=== PATIENT | female | born 1970 | race Caucasian/White ===

== ENCOUNTER 2017-05-24 12:06 | Inpatient (IN) | payer OTHER ==
[2017-05-24 12:35] VITALS: BMI 21.9
--- NOTE | 2017-05-24 16:36 | HP ---
CIWA Score - CIWA Score Nausea/Vomitin Muscle Tremors: 3 Anxiety: 3 Agitation: 3 Paroxysmal Sweats: 3 Orientation: 0-Oriented Tacttile Disturbances: 2-Mild Itch/Numbness/Burn Auditory Disturbances: 2-Mild Harshness/Frighten Visual Disturbances: 2-Mild Sensitivity Headache: 2-Mild CIWA-Ar Total Score: 23 Admission ROS BHS - HPI Chief Complaint: i need help to stop using xanax,klonopin,cocaine Allergies/Adverse Reactions: Allergies Allergy/AdvReac Type Severity Reaction Status Date / Time No Known Allergies Allergy Verified 05/24/17 15:30 History of Present Illness: thi s47 years old female with heroin,xanax,and cocaine dependence,seeking detox, last treatment 15 years ago [facility] syncope nicotine dependence hepatitis c mmtp 90 mgs/day,last medicated today longest period of sobriety 5 years Exam Limitations: No Limitations - Ebola screening Have you traveled outside of the country in the last 21 days: No Have you had contact with anyone from an Ebola affected area: No Have you been sick,other than usual withdrawal symptoms: No Do you have a fever: No - Review of Systems Constitutional: Chills, Diaphoresis, Loss of Appetite, Malaise, Night Sweats, Changes in sleep, Weakness, Unintentional Wgt. Loss EENT: reports: Tearing, Nose Congestion Respiratory: reports: No Symptoms reported Cardiac: reports: No Symptoms Reported GI: reports: Diarrhea, Nausea, Vomiting, Abdominal cramping : reports: No Symptoms Reported Musculoskeletal: reports: Back Pain, Muscle Pain Integumentary: reports: Dryness Neuro: reports: Headache, Tremors Endocrine: reports: No Symptoms Reported Hematology: reports: No Symptoms Reported Psychiatric: reports: No Sypmtoms Reported, Judgement Intact, Mood/Affect Appropiate, Orientated x3, other (bipolar disorder) Patient History - Patient Medical History Hx Anemia: No Hx Asthma: No Hx Chronic Obstructive Pulmonary Disease (COPD): No Hx Cancer: No Hx Cardiac Disorders: No Hx Congestive Heart Failure: No Hx Hypertension: No Hx Hypercholesterolemia: No Hx Pacemaker: No HX Cerebrovascular Accident: No Hx Seizures: No Hx Diabetes: No Hx Gastrointestinal Disorders: Yes (acid reflux) Hx Liver Disease: No Hx Genitourinary Disorders: No Hx Sexually Transmitted Disorders: Yes (syphilis at age 18) Hx Renal Disease (ESRD): No Hx Thyroid Disease: No Hx Human Immunodeficiency Virus (HIV): Yes ([email or web address]) Hx Hepatitis C: Yes (not treated) Hx Depression: Yes Hx Suicide Attempt: No Hx Bipolar Disorder: No Hx Schizophrenia: No Other Medical History: no suicidal,no homicidal - Patient Surgical History Past Surgical History: No Hx Neurologic Surgery: No Hx Cataract Extraction: No Hx Cardiac Surgery: No Hx Lung Surgery: No Hx Breast Surgery: No Hx Breast Biopsy: No Hx Abdominal Surgery: No Hx Appendectomy: No Hx Cholecystectomy: No Hx Genitourinary Surgery: No Hx Section: No Hx Orthopedic Surgery: No Anesthesia Reaction: No - PPD History Previous Implant?: Yes Documented Results: Negative w/o proof Implanted On Prior [facility] Admission?: No - Reproductive History Patient is a Female of Child Bearing Age (11 -55 yrs old): Yes Last Menstrual Period: 05/15/17 Patient : No - Smoking Cessation Smoking history: Current every day smoker Have you smoked in the past 12 months: Yes Aproximately how many cigarettes per day: 20 Hx Chewing Tobacco Use: No Initiated information on smoking cessation: Yes 'Breaking Loose' booklet given: 05/24/17 - Substance & Tx. History Hx Alcohol Use: No Hx Substance Use: Yes Substance Use Type: Cocaine, Tranquilizers - Substances Abused Crack Route: Smoking Frequency: 3-6 times per week Amount used: $20 Age of first use: 16 Date of Last Use: 05/23/17 Heroin Route: Injection Frequency: 1-2 times per week Amount used: 3 bags Age of first use: 17 Date of Last Use: 05/23/17 Xanax Route: Oral Frequency: Daily Amount used: 4 mg. Age of first use: 45 Date of Last Use: 05/24/17 Family Disease History - Family Disease History Family History: Denies Admission Physical Exam BHS - Vital Signs Vital Signs: Vital Signs - 24 hr 05/24/17 12:31 Temperature 97.2 F L Pulse Rate 57 L Respiratory 20 Rate Blood Pressure 131/63 - Physical General Appearance: Yes: Moderate Distress, Tremorous, Irritable, Sweating, Anxious HEENTM: Yes: Normal ENT Inspection, Normocephalic, BRIAN, Pharynx Normal Respiratory: Yes: Lungs Clear, Normal Breath Sounds, No Respiratory Distress Neck: Yes: Within Normal Limits, Supple, Trachea in good position Breast: Yes: Breast Exam Deferred Cardiology: Yes: Within Normal Limits, Regular Rhythm, Regular Rate, S1, S2 Abdominal: Yes: Normal Bowel Sounds, Non Tender, Flat, Soft, Organomegaly Genitourinary: Yes: Within Normal Limits Back: Yes: Muscle Spasm Musculoskeletal: Yes: Back pain, Muscle Pain Extremities: Yes: Within Normal Limits, Normal Range of Motion, Tremors 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, Fully Oriented, Alert, Motor Strength 5/5 Integumentary: Yes: Within Normal Limits, Dry - Diagnostic (1) Uncomplicated sedative, hypnotic or anxiolytic withdrawal Current Visit: Yes Status: Acute (2) Cocaine dependence Current Visit: Yes Status: Acute (3) Syncope Current Visit: Yes Status: Acute (4) Methadone maintenance therapy patient Current Visit: Yes Status: Acute (5) Weight loss Current Visit: Yes Status: Acute (6) Bipolar disorder Current Visit: Yes Status: Acute (7) History of syphilis Current Visit: Yes Status: Acute (8) HIV (human immunodeficiency virus infection) Current Visit: Yes Status: Acute (9) Hepatitis C Current Visit: Yes Status: Acute Cleared for Admission [facility] - Detox or Rehab [facility] Level of Care: Medically Managed Detox Regimen/Protocol: Valium [facility] Breath Alcohol Content Breath Alcohol Content: 0 Urine Pregancy Test - Result Urine Test Results: Negative- NO Line Present Urine Drug Screen - Results Drug Screen Negative: No Urine Drug Screen Results: SHANELLE-Cocaine, OPI-Opiates, BZO-Benzodiazepines, MTD- Methadone
[2017-05-24] MEDS ORDERED: ACETAMINOPHEN 325 MG TABLET (FP) PO PRN (16:45)
[2017-05-24] MEDS ORDERED: guaiFENesin/D-METHORPHAN HB 10 ML UNIT-DOSE CUPS PO PRN (16:45)
[2017-05-24] MEDS ORDERED: diazePAM 5 MG TABLET PO PRN (16:45)
[2017-05-24] MEDS ORDERED: MENTHOL/PHENOL 1 EACH UD MM PRN (16:45)
[2017-05-24] MEDS ORDERED: MAG HYDROX/AL HYDROX/SIMETH 30 ML UNIT-DOSE CUP PO PRN (16:45)
[2017-05-24] MEDS ORDERED: diphenhydrAMINE HCL 50 MG CAPSULE PO PRN (16:45)
[2017-05-24] MEDS ORDERED: diazePAM 5 MG TABLET PO ONE (16:45)
[2017-05-24] MEDS ORDERED: hydrOXYzine PAMOATE 25 MG CAPSULE (FP) PO PRN (16:45)
[2017-05-24] MEDS ORDERED: MAGNESIUM CITRATE 300 ML BOTTLE PO PRN (16:45)
[2017-05-24] MEDS ORDERED: P-EPHED 60MG/TRIPROLIDI 2.5MG TABLET PO PRN (16:45)
[2017-05-24] MEDS ORDERED: IBUPROFEN 400 MG TABLET (FP) PO PRN (16:45)
[2017-05-24] MEDS ORDERED: MAGNESIUM HYDROX 2400MG/30ML ORAL SUSPENSION 30 ML CUP PO PRN (16:45)
[2017-05-24] MEDS ORDERED: LOPERAMIDE HCL 2 MG CAPSULE PO PRN (16:45)
[2017-05-24] MEDS: NICOTINE 21 MG/24 HOURS TOPICAL PATCH TD SCH (18:49)
[2017-05-24] MEDS: THIAMINE HCL 100 MG TABLET (FP) PO SCH (22:19)
[2017-05-24] MEDS: diazePAM 5 MG TABLET PO SCH (22:20)
[2017-05-24 23:06] LABS: URINE APPEARANCE SLCLOUDY; URINE BILIRUBIN NEGATIVE (NEGATIVE); URINE BLOOD NEGATIVE (NEGATIVE); URINE COLOR YELLOW; URINE GLUCOSE (UA) NEGATIVE (NEGATIVE); URINE KETONE NEGATIVE (NEGATIVE); URINE LEUK ESTERASE NEGATIVE (NEGATIVE); URINE NITRITE NEGATIVE (NEGATIVE); URINE PROTEIN NEGATIVE (NEGATIVE); URINE UROBILINOGEN NEGATIVE mg/dL (0.2-1.0)
[2017-05-25] MEDS: diazePAM 5 MG TABLET PO SCH ×3 (05:11→22:08)
[2017-05-25] MEDS ORDERED: METHADONE HCL 10 MG TABLET PO SCH (09:30)
[2017-05-25 09:59] LABS: MCH 26.8 pg (25.7-33.7); MCHC 33.3 g/dl (32.0-36.0); MEAN CELL VOLUME 80.3 fl (80-96); MEAN PLT VOLUME 11.1 fl (7.5-11.1); PLATELET COUNT 94 K/MM3 (134-434); WHITE BLOOD COUNT 3.2 K/mm3 (4.0-10.0)
[2017-05-25] MEDS ORDERED: METHADONE HCL 10 MG TABLET ONE (10:03)
[2017-05-25] MEDS ORDERED: METHADONE HCL 40 MG DISPERSABLE TABLET ONE (10:03)
[2017-05-25 10:05] LABS: ANION GAP 5 (8-16); CALCIUM 8.5 mg/dL (8.5-10.1); CO2 28 mmol/L (21-32); GLUCOSE,RANDOM 85 mg/dL (74-106)
[2017-05-25 10:08] LABS: ALK PHOS 78 U/L (45-117); BILIRUBIN,TOTAL 0.3 mg/dL (0.2-1.0); CREATININE 0.8 mg/dL (0.55-1.02); SGOT/AST 26 U/L (15-37); SGPT/ALT 32 U/L (12-78); TOT PROT 7.2 g/dl (6.4-8.2)
--- NOTE | 2017-05-25 10:34 | PN ---
S CIWA - CIWA Score Nausea/Vomitin Muscle Tremors: 3 Anxiety: 3 Agitation: 2 Paroxysmal Sweats: 1-Minimal Palms Moist Orientation: 0-Oriented Tacttile Disturbances: 1-Very Mild Itch/Numbness Auditory Disturbances: 1-Very Mild Visual Disturbances: 1-Very Mild Sensitivity Headache: 2-Mild CIWA-Ar Total Score: 17 BHS Progress Note (SOAP) Subjective: ALERT,IRRITABLE,ANXIOUS,INTERRUPTED SLEEP,PAIN IN THE BODY AND BACK Objective: 05/25/17 10:31 Vital Signs Temperature 96.7 F L 05/25/17 06:19 Pulse Rate 66 05/25/17 06:19 Respiratory Rate 18 05/25/17 06:19 Blood Pressure 104/66 05/25/17 06:19 O2 Sat by Pulse Oximetry (%) EKG SINUS BRADYCARDIA 55/MIN NO CHEST PAIN,NO SOB,NO DIZZINESS 05/25/17 10:33 Laboratory Last Values Urine Color Yellow 05/24/17 22:50 Urine Appearance Slcloudy 05/24/17 22:50 Urine pH 6.0 (5.0-8.0) 05/24/17 22:50 Urine Protein Negative (NEGATIVE) 05/24/17 22:50 Urine Glucose (UA) Negative (NEGATIVE) 05/24/17 22:50 Urine Ketones Negative (NEGATIVE) 05/24/17 22:50 Urine Blood Negative (NEGATIVE) 05/24/17 22:50 Urine Nitrite Negative (NEGATIVE) 05/24/17 22:50 Urine Bilirubin Negative (NEGATIVE) 05/24/17 22:50 Urine Urobilinogen Negative mg/dL (0.2-1.0) 05/24/17 22:50 Ur Leukocyte Esterase Negative (NEGATIVE) 05/24/17 22:50 LABS PENDING Assessment: 05/25/17 10:33 WITHDRAWAL SYMPTOM Plan: CONTINUE DETOX
[2017-05-25] MEDS: NICOTINE 21 MG/24 HOURS TOPICAL PATCH TD SCH (12:05)
[2017-05-25] MEDS: PRENATAL VITAMINS W/ FOLIC ACID TABLET (FP) PO SCH (12:05)
[2017-05-25] MEDS: METHADONE 80 MG, METHADONE 10 MG PO SCH (12:06)
--- NOTE | 2017-05-25 14:33 | CONSULT ---
[facility] Psychiatric Consult - Data Date of interview: 05/25/17 Admission source: [facility] Identifying data: Patient refused psychiatric evaluation.Nursing staff is made aware.
[2017-05-25] MEDS: THIAMINE HCL 100 MG TABLET (FP) PO SCH (22:09)
[2017-05-26] MEDS ORDERED: METHADONE HCL 10 MG TABLET ONE (04:50)
[2017-05-26] MEDS ORDERED: METHADONE HCL 40 MG DISPERSABLE TABLET ONE (04:50)
[2017-05-26] MEDS: METHADONE 80 MG, METHADONE 10 MG PO SCH (06:08)
--- NOTE | 2017-05-26 08:16 | EKG ---
Test Reason : Blood Pressure : / mmHG Vent. Rate : 055 BPM Atrial Rate : 055 BPM P-R Int : 152 ms QRS Dur : 094 ms QT Int : 426 ms P-R-T Axes : 039 073 047 degrees QTc Int : 407 ms SINUS BRADYCARDIA NONSPECIFIC T WAVE ABNORMALITY ABNORMAL ECG NO PREVIOUS ECGS AVAILABLE Confirmed by BRAEDEN NEAL, JADYN ([id number]) on 05/26/2017 8:15:28 AM Referred By: Vasiliy Samaniego Confirmed By:JADYN DERAS MD
[2017-05-26] MEDS: diazePAM 5 MG TABLET PO SCH ×2 (10:13→22:07)
[2017-05-26] MEDS: NICOTINE 21 MG/24 HOURS TOPICAL PATCH TD SCH (10:13)
[2017-05-26] MEDS: PRENATAL VITAMINS W/ FOLIC ACID TABLET (FP) PO SCH (10:13)
--- NOTE | 2017-05-26 10:30 | PN ---
S CIWA - CIWA Score Nausea/Vomitin Muscle Tremors: 3 Anxiety: 3 Agitation: 2 Paroxysmal Sweats: No Perspiration Orientation: 0-Oriented Tacttile Disturbances: 1-Very Mild Itch/Numbness Auditory Disturbances: 1-Very Mild Visual Disturbances: 1-Very Mild Sensitivity Headache: 2-Mild CIWA-Ar Total Score: 16 S Progress Note (SOAP) Subjective: ALERT,IRRITABLE,ANXIOUS,INTERRUPTED SLEEP,TREMOR Objective: 05/26/17 10:29 Vital Signs Temperature 98.1 F 05/26/17 10:00 Pulse Rate 67 05/26/17 10:00 Respiratory Rate 20 05/26/17 10:00 Blood Pressure 124/67 05/26/17 10:00 O2 Sat by Pulse Oximetry (%) Laboratory Last Values WBC 3.2 K/mm3 (4.0-10.0) L 05/25/17 07:00 RBC 4.32 M/mm3 (3.60-5.2) 05/25/17 07:00 Hgb 11.5 GM/dL (10.7-15.3) 05/25/17 07:00 Hct 34.7 % (32.4-45.2) 05/25/17 07:00 MCV 80.3 fl (80-96) 05/25/17 07:00 MCH 26.8 pg (25.7-33.7) 05/25/17 07:00 MCHC 33.3 g/dl (32.0-36.0) 05/25/17 07:00 RDW 14.0 % (11.6-15.6) 05/25/17 07:00 Plt Count 94 K/MM3 (134-434) L 05/25/17 07:00 MPV 11.1 fl (7.5-11.1) 05/25/17 07:00 Sodium 141 mmol/L (136-145) 05/25/17 07:00 Potassium 4.2 mmol/L (3.5-5.1) 05/25/17 07:00 Chloride 108 mmol/L (98-107) H 05/25/17 07:00 Carbon Dioxide 28 mmol/L (21-32) 05/25/17 07:00 Anion Gap 5 (8-16) L 05/25/17 07:00 BUN 10 mg/dL (7-18) 05/25/17 07:00 Creatinine 0.8 mg/dL (0.55-1.02) 05/25/17 07:00 Creat Clearance w eGFR > 60 (>60) 05/25/17 07:00 Random Glucose 85 mg/dL (74-106) 05/25/17 07:00 Calcium 8.5 mg/dL (8.5-10.1) 05/25/17 07:00 Total Bilirubin 0.3 mg/dL (0.2-1.0) 05/25/17 07:00 AST 26 U/L (15-37) 05/25/17 07:00 ALT 32 U/L (12-78) 05/25/17 07:00 Alkaline Phosphatase 78 U/L (45-117) 05/25/17 07:00 Total Protein 7.2 g/dl (6.4-8.2) 05/25/17 07:00 Albumin 3.0 g/dl (3.4-5.0) L 05/25/17 07:00 Urine Color Yellow 05/24/17 22:50 Urine Appearance Slcloudy 05/24/17 22:50 Urine pH 6.0 (5.0-8.0) 05/24/17 22:50 Ur Specific [place] 1.010 (1.005-1.025) 05/24/17 22:50 Urine Protein Negative (NEGATIVE) 05/24/17 22:50 Urine Glucose (UA) Negative (NEGATIVE) 05/24/17 22:50 Urine Ketones Negative (NEGATIVE) 05/24/17 22:50 Urine Blood Negative (NEGATIVE) 05/24/17 22:50 Urine Nitrite Negative (NEGATIVE) 05/24/17 22:50 Urine Bilirubin Negative (NEGATIVE) 05/24/17 22:50 Urine Urobilinogen Negative mg/dL (0.2-1.0) 05/24/17 22:50 Ur Leukocyte Esterase Negative (NEGATIVE) 05/24/17 22:50 RPR Titer Nonreactive (NONREACTIVE) 05/25/17 07:00 Assessment: 05/26/17 10:29 WITHDRAWAL SYMPTOM Plan: CONTINUE DETOX
[2017-05-26] MEDS: PANTOPRAZOLE 40 MG TABLET (FP) PO SCH (15:23)
[2017-05-26] MEDS: THIAMINE HCL 100 MG TABLET (FP) PO SCH (22:07)
[2017-05-27] MEDS ORDERED: METHADONE HCL 10 MG TABLET ONE (04:59)
[2017-05-27] MEDS ORDERED: METHADONE HCL 40 MG DISPERSABLE TABLET ONE (04:59)
[2017-05-27] MEDS: METHADONE 80 MG, METHADONE 10 MG PO SCH (05:58)
--- NOTE | 2017-05-27 10:02 | PN ---
S Progress Note (SOAP) Subjective: ALERT,IRRITABLE,ANXIOUS,INTERRUPTED SLEEP, Objective: 05/27/17 10:02 Vital Signs Temperature 96.3 F L 05/27/17 06:22 Pulse Rate 66 05/27/17 06:22 Respiratory Rate 16 05/27/17 06:22 Blood Pressure 97/60 05/27/17 06:22 O2 Sat by Pulse Oximetry (%) Assessment: 05/27/17 10:02 WITHDRAWAL SYMPTOM Plan: CONTINUE DETOX
[2017-05-27] MEDS: PRENATAL VITAMINS W/ FOLIC ACID TABLET (FP) PO SCH (10:07)
[2017-05-27] MEDS: NICOTINE 21 MG/24 HOURS TOPICAL PATCH TD SCH (10:07)
[2017-05-27] MEDS: diazePAM 5 MG TABLET PO SCH ×2 (10:07→22:05)
[2017-05-27] MEDS: PANTOPRAZOLE 40 MG TABLET (FP) PO SCH (10:07)
[2017-05-27] MEDS: THIAMINE HCL 100 MG TABLET (FP) PO SCH (22:05)
[2017-05-28] MEDS ORDERED: METHADONE HCL 40 MG DISPERSABLE TABLET ONE (04:05)
[2017-05-28] MEDS ORDERED: METHADONE HCL 10 MG TABLET ONE (04:05)
[2017-05-28] MEDS: METHADONE 80 MG, METHADONE 10 MG PO SCH (05:41)
--- NOTE | 2017-05-28 08:08 | DS ---
[facility] Detox Discharge Summary Admission Date: 05/24/17 Discharge Date: 05/28/17 - History Present History: Cocaine Dependence, Sedative Dependence, MMTP Additional Comments: follow up with after care program as arrangement Pertinent Past History: syncope hiv weight loss hepatitis c bipolar disorder history of syphilis - Physical Exam Results Vital Signs: Vital Signs Temperature 97.7 F 05/28/17 06:20 Pulse Rate 57 L 05/28/17 06:20 Respiratory Rate 16 05/28/17 06:20 Blood Pressure 101/54 05/28/17 06:20 O2 Sat by Pulse Oximetry (%) Pertinent Admission Physical Exam Findings: withdrawal symptom - Treatment Hospital Course: Detox Protocol Followed, Detoxed Safely, Responded well, Discharged Condition Good Patient has Accepted a Rehab Referral to: declined - Medication Discharge Medications: Ambulatory Orders Omeprazole Magnesium [Prilosec] 10 mg PO DAILY 05/26/17 - Diagnosis (1) Uncomplicated sedative, hypnotic or anxiolytic withdrawal Current Visit: Yes Status: Acute (2) Cocaine dependence Current Visit: Yes Status: Acute (3) Syncope Current Visit: Yes Status: Acute (4) Methadone maintenance therapy patient Current Visit: Yes Status: Acute (5) Weight loss Current Visit: Yes Status: Acute (6) Bipolar disorder Current Visit: Yes Status: Acute (7) History of syphilis Current Visit: Yes Status: Acute (8) HIV (human immunodeficiency virus infection) Current Visit: Yes Status: Acute (9) Hepatitis C Current Visit: Yes Status: Acute - AMA Did Patient Leave Against Medical Advice: No
[2017-05-28] MEDS: NICOTINE 21 MG/24 HOURS TOPICAL PATCH TD SCH (09:12)
[2017-05-28] MEDS: PRENATAL VITAMINS W/ FOLIC ACID TABLET (FP) PO SCH (09:14)
[2017-05-28 09:47] VITALS: BP 110/62; PULSE 74; TEMP 97.9
[2017-05-28] MEDS ORDERED: diazePAM 5 MG TABLET PO SCH (10:00)
[2017-05-28] MEDS ORDERED: RANITIDINE HCL 150 MG TABLET (FP) PO SCH (10:00)
== END 2017-05-28 09:44 | disposition home or self-care (01) | DRG 773 ==
LOC: YASAS 12:06 → Y6N 18:04
PROVIDERS: ADMIT Internal Medicine; ATTEND Internal Medicine
PROC: HZ2ZZZZ Detoxification Services for Substance Abuse Treatment (ICD-10-PCS; principal; 2017-05-24)
DX: F11.20 Opioid dependence, uncomplicated (principal); F14.20 Cocaine dependence, uncomplicated; F17.210 Nicotine dependence, cigarettes, uncomplicated; F31.9 Bipolar disorder, unspecified; Z21 Asymptomatic human immunodeficiency virus [HIV] infection status; R00.1 Bradycardia, unspecified; B18.2 Chronic viral hepatitis C; K21.9 Gastro-esophageal reflux disease without esophagitis; Z86.79 Personal history of other diseases of the circulatory system; Z87.898 Personal history of other specified conditions; Z87.42 Personal history of other diseases of the female genital tract
CPT/HCPCS: 36415; 80053; 81003; 85027; 86593; 93005; 93010

== ENCOUNTER 2017-11-06 18:31 | Inpatient (IN) | payer OTHER ==
[2017-11-06 21:02] VITALS: BMI 22.6
--- NOTE | 2017-11-06 22:00 | HP ---
COWS - Scale Resting Pulse: 0= OR 80 or Below Sweatin=Flushed/Facial Moisture Restless Observation: 1= Difficult to Sit Still Pupil Size: 0= Normal to Room Light Bone or Joint Aches: 4=Acute Joint/Muscle Pain Runny Nose/ Eye Tearin= Runny Nose/Eyes GI Upset > 30mins: 3= Vomiting/Diarrhea (vomiting x 2, diarrhea x 3) Tremor Observation: 2= Slight Tremor Visible Yawning Observation: 1= 1-2x During Session Anxiety or Irritability: 2=Irritable/Anxious Goose Flesh Skin: 3=Piloerection COWS Score: 20 Admission ROS S - [facility] Chief Complaint: Opioid withdrawal symptoms Allergies/Adverse Reactions: Allergies Allergy/AdvReac Type Severity Reaction Status Date / Time No Known Allergies Allergy Verified 05/24/17 15:30 History of Present Illness: 47 years old female with a long history of opioid dependence is seeking admission to detox. Patient has been in previous detox, last in May 2017 at [facility]. Reports 5 years of sobriety. Patient has medical history of HIV, Hep C, GERD, Syphilis, nicotine dependence and depression. She is on 130mg capsule at [facility] in [place]. Dose is to be verified by the nurse. She denies suicidal ideation at this time. Exam Limitations: No Limitations - Ebola screening Have you traveled outside of the country in the last 21 days: No Have you had contact with anyone from an Ebola affected area: No Have you been sick,other than usual withdrawal symptoms: No Do you have a fever: No - Review of Systems Constitutional: Chills, Loss of Appetite, Malaise, Night Sweats EENT: reports: No Symptoms Reported, Other (uses prescription glasses) Respiratory: reports: No Symptoms reported Cardiac: reports: No Symptoms Reported GI: reports: Diarrhea (x3), Nausea, Poor Appetite, Poor Fluid Intake, Abdominal cramping : reports: No Symptoms Reported Musculoskeletal: reports: Back Pain, Muscle Pain, Muscle Weakness Integumentary: reports: Flushing Neuro: reports: Tingling, Tremors, Weakness Hematology: reports: No Symptoms Reported Psychiatric: reports: Orientated x3, Agitated, Anxious Other Systems: Reviewed and Negative Patient History - Patient Medical History Hx Anemia: No Hx Asthma: No Hx Chronic Obstructive Pulmonary Disease (COPD): No Hx Cancer: No Hx Cardiac Disorders: No Hx Congestive Heart Failure: No Hx Hypertension: No Hx Hypercholesterolemia: No HX Cerebrovascular Accident: No Hx Seizures: No Hx Diabetes: No Hx Gastrointestinal Disorders: Yes (acid reflux) Hx Liver Disease: No Hx Genitourinary Disorders: No Hx Sexually Transmitted Disorders: Yes (syphilis at age 18) Hx Renal Disease (ESRD): No Hx Thyroid Disease: No Hx Human Immunodeficiency Virus (HIV): Yes (2012) Hx Hepatitis C: Yes (not treated) Hx Depression: Yes Hx Suicide Attempt: No Hx Bipolar Disorder: No Hx Schizophrenia: No - Patient Surgical History Past Surgical History: No Hx Neurologic Surgery: No Hx Cataract Extraction: No Hx Cardiac Surgery: No Hx Lung Surgery: No Hx Breast Surgery: No Hx Breast Biopsy: No Hx Abdominal Surgery: No Hx Appendectomy: No Hx Cholecystectomy: No Hx Genitourinary Surgery: No Hx Section: No Hx Orthopedic Surgery: No Anesthesia Reaction: No - PPD History Previous Implant?: Yes Documented Results: Negative w/proof Date: 05/26/17 PPD to be Administered?: No - Reproductive History Patient is a Female of Child Bearing Age (11 -55 yrs old): Yes Last Menstrual Period: 05/15/17 Patient : No - Smoking Cessation Smoking history: Current every day smoker Have you smoked in the past 12 months: Yes Aproximately how many cigarettes per day: 20 Hx Chewing Tobacco Use: No Initiated information on smoking cessation: Yes 'Breaking Loose' booklet given: 11/13/17 - Substance & Tx. History Hx Alcohol Use: No Hx Substance Use: Yes Substance Use Type: Cocaine, Heroin Hx Substance Use Treatment: Yes ([facility] May 2017) - Substances Abused Alprazolam (Xanax) Route: Oral Frequency: Daily Amount used: 6 mg Age of first use: 47 Date of Last Use: 11/06/17 Cocaine Route: Smoking Frequency: Daily Amount used: 3 sticks Age of first use: 16 Date of Last Use: 11/05/17 Heroin Route: Injection Frequency: Daily Amount used: 5 bags Age of first use: 18 Date of Last Use: 11/06/17 Family Disease History - Family Disease History Family History: Denies Admission Physical Exam BHS - Vital Signs Vital Signs: Vital Signs - 24 hr 11/06/17 20:59 Temperature 95.9 F L Pulse Rate 56 L Respiratory 19 Rate Blood Pressure 86/50 - Physical General Appearance: Yes: Moderate Distress HEENTM: Yes: EOMI, Normal Voice, BRIAN Respiratory: Yes: Lungs Clear, Normal Breath Sounds, No Respiratory Distress Neck: Yes: Supple Breast: Yes: Breast Exam Deferred Cardiology: Yes: Regular Rhythm, Regular Rate, S1, S2, Bradycardia Abdominal: Yes: Normal Bowel Sounds, Soft Genitourinary: Yes: Within Normal Limits Musculoskeletal: Yes: Back pain, Muscle Pain, Muscle weakness Extremities: Yes: Tremors Neurological: Yes: Alert, Normal Response Integumentary: Yes: Dry Lymphatic: Yes: Within Normal Limits - Diagnostic (1) Opioid dependence with withdrawal Current Visit: Yes Status: Chronic (2) Cocaine dependence Current Visit: Yes Status: Chronic (3) HIV (human immunodeficiency virus infection) Current Visit: Yes Status: Chronic (4) Hepatitis C Current Visit: Yes Status: Chronic (5) History of syphilis Current Visit: Yes Status: Chronic (6) Methadone maintenance therapy patient Current Visit: Yes Status: Chronic (7) Uncomplicated sedative, hypnotic or anxiolytic withdrawal Current Visit: Yes Status: Chronic Cleared for Admission [facility] - Detox or Rehab [facility] Level of Care: Medically Managed Detox Regimen/Protocol: Valium [facility] Breath Alcohol Content Breath Alcohol Content: 0 Urine Pregancy Test - Result Urine Test Results: Negative- NO Line Present Urine Drug Screen - Results Drug Screen Negative: No Urine Drug Screen Results: SHANELLE-Cocaine, OPI-Opiates, BZO-Benzodiazepines, MTD- Methadone
[2017-11-06] MEDS ORDERED: MAGNESIUM CITRATE 300 ML BOTTLE PO PRN (22:09)
[2017-11-06] MEDS ORDERED: IBUPROFEN 400 MG TABLET (FP) PO PRN (22:09)
[2017-11-06] MEDS ORDERED: MENTHOL/PHENOL 1 EACH UD MM PRN (22:09)
[2017-11-06] MEDS ORDERED: NICOTINE POLACRILEX 2 MG GUM BC PRN (22:09)
[2017-11-06] MEDS ORDERED: P-EPHED 60MG/TRIPROLIDI 2.5MG TABLET PO PRN (22:09)
[2017-11-06] MEDS ORDERED: MAGNESIUM HYDROX 2400MG/30ML ORAL SUSPENSION 30 ML CUP PO PRN (22:09)
[2017-11-06] MEDS ORDERED: MAG HYDROX/AL HYDROX/SIMETH 30 ML UNIT-DOSE CUP PO PRN (22:09)
[2017-11-06] MEDS ORDERED: guaiFENesin/D-METHORPHAN HB 10 ML UNIT-DOSE CUPS PO PRN (22:09)
[2017-11-06] MEDS ORDERED: ACETAMINOPHEN 325 MG TABLET (FP) PO PRN (22:09)
[2017-11-06] MEDS ORDERED: diazePAM 5 MG TABLET PO ONE (22:09)
[2017-11-06 23:58] LABS: URINE APPEARANCE CLOUDY; URINE BILIRUBIN NEGATIVE (NEGATIVE); URINE BLOOD NEGATIVE (NEGATIVE); URINE COLOR YELLOW; URINE GLUCOSE (UA) NEGATIVE (NEGATIVE); URINE KETONE NEGATIVE (NEGATIVE); URINE NITRITE NEGATIVE (NEGATIVE); URINE PROTEIN NEGATIVE (NEGATIVE); URINE UROBILINOGEN NEGATIVE mg/dL (0.2-1.0)
[2017-11-07 00:13] LABS: URINE LEUK ESTERASE 2+ (NEGATIVE)
[2017-11-07 00:21] LABS: EPI CELLS MANY /HPF (FEW); URINE BACTERIA RARE /hpf (NONE SEEN); URINE MUCUS RARE
[2017-11-07 00:22] LABS: AMORP URATES FEW /hpf (NONE SEEN)
[2017-11-07] MEDS: diazePAM 5 MG TABLET PO PRN (00:46)
[2017-11-07] MEDS: diazePAM 5 MG TABLET PO SCH ×3 (05:29→22:20)
[2017-11-07] MEDS ORDERED: METHADONE HCL 10 MG TABLET PO ONE (10:05)
[2017-11-07] MEDS: PRENATAL VITAMINS W/ FOLIC ACID TABLET (FP) PO SCH (10:17)
[2017-11-07] MEDS: NICOTINE 14 MG/24 HOURS TOPICAL PATCH TD SCH (10:17)
[2017-11-07 10:36] LABS: ALBUMIN 3.1 g/dl (3.4-5.0); ANION GAP 6 (8-16); BLOOD UREA NITROGEN 11 mg/dL (7-18); CALCIUM 8.7 mg/dL (8.5-10.1); CHLORIDE 106 mmol/L (98-107); CO2 31 mmol/L (21-32); GLUCOSE,RANDOM 105 mg/dL (74-106); POTASSIUM 3.8 mmol/L (3.5-5.1); SODIUM 143 mmol/L (136-145)
[2017-11-07 10:37] LABS: HEMATOCRIT 36.2 % (32.4-45.2); HEMOGLOBIN 11.9 GM/dL (10.7-15.3); MCH 26.8 pg (25.7-33.7); MCHC 32.8 g/dl (32.0-36.0); MEAN CELL VOLUME 81.7 fl (80-96); PLATELET COUNT 118 K/MM3 (134-434); RBC 4.43 M/mm3 (3.60-5.2); RDW 13.5 % (11.6-15.6); WHITE BLOOD COUNT 2.8 K/mm3 (4.0-10.0)
[2017-11-07 10:41] LABS: ALK PHOS 80 U/L (45-117); BILIRUBIN,TOTAL 0.4 mg/dL (0.2-1.0); CREATININE 0.8 mg/dL (0.55-1.02); SGOT/AST 20 U/L (15-37); SGPT/ALT 24 U/L (12-78); TOT PROT 7.4 g/dl (6.4-8.2)
[2017-11-07] MEDS ORDERED: METHADONE 80 MG, METHADONE 30 MG PO ONE (10:51)
[2017-11-07] MEDS ORDERED: METHADONE HCL 40 MG DISPERSABLE TABLET ONE (11:31)
[2017-11-07] MEDS ORDERED: METHADONE HCL 10 MG TABLET ONE (11:31)
--- NOTE | 2017-11-07 13:39 | EKG ---
Test Reason : Blood Pressure : / mmHG Vent. Rate : 060 BPM Atrial Rate : 060 BPM P-R Int : 154 ms QRS Dur : 102 ms QT Int : 456 ms P-R-T Axes : 038 071 062 degrees QTc Int : 456 ms NORMAL SINUS RHYTHM T WAVE ABNORMALITY, CONSIDER ANTERIOR ISCHEMIA ABNORMAL ECG WHEN COMPARED WITH ECG OF 24-MAY-2017 18:20, T WAVE INVERSION NOW EVIDENT IN ANTERIOR LEADS Confirmed by BRAEDEN NEAL, JADYN ([id number]) on 11/07/2017 1:39:32 PM Referred By: Confirmed By:JADYN DERAS MD
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
[2017-11-07] MEDS: LOPERAMIDE HCL 2 MG CAPSULE PO PRN (20:15)
[2017-11-07] MEDS: THIAMINE HCL 100 MG TABLET (FP) PO SCH (22:21)
[2017-11-08] MEDS ORDERED: METHADONE HCL 40 MG DISPERSABLE TABLET ONE (04:39)
[2017-11-08] MEDS ORDERED: METHADONE HCL 10 MG TABLET ONE (04:40)
[2017-11-08] MEDS: METHADONE 80 MG, METHADONE 30 MG PO SCH (05:23)
[2017-11-08] MEDS ORDERED: METHADONE HCL 40 MG DISPERSABLE TABLET PO SCH (06:00)
[2017-11-08] MEDS: PRENATAL VITAMINS W/ FOLIC ACID TABLET (FP) PO SCH (10:17)
[2017-11-08] MEDS: diazePAM 5 MG TABLET PO SCH ×2 (10:17→22:19)
[2017-11-08] MEDS: NICOTINE 14 MG/24 HOURS TOPICAL PATCH TD SCH (10:17)
[2017-11-08] MEDS: LOPERAMIDE HCL 2 MG CAPSULE PO PRN (10:19)
--- NOTE | 2017-11-08 10:49 | PN ---
BHS COWS - Scale Resting Pulse: 0= ID 80 or Below Sweatin=Flushed/Facial Moisture Restless Observation: 1= Difficult to Sit Still Pupil Size: 0= Normal to Room Light Bone or Joint Aches: 2= Severe Diffuse Aches Runny Nose/ Eye Tearin= Runny Nose/Eyes GI Upset > 30mins: 2= Nausea/Diarrhea Tremor Observation of Outstretched Hands: 2= Slight Tremor Visible Yawning Observation: 2= >3x During Session Anxiety or Irritability: 1=Feels Anxious/Irritable Goose Flesh Skin: 3=Piloerection COWS Score: 17 BHS Progress Note (SOAP) Subjective: sweats agitation body ache shakes interrupted sleep Objective: 11/08/17 10:54 Vital Signs Temperature 98.1 F 11/08/17 09:17 Pulse Rate 64 11/08/17 09:17 Respiratory Rate 18 11/08/17 09:17 Blood Pressure 127/65 11/08/17 09:17 O2 Sat by Pulse Oximetry (%) Laboratory Tests 11/06/17 11/07/17 11/07/17 22:40 07:00 07:00 WBC 2.8 L RBC 4.43 Hgb 11.9 Hct 36.2 MCV 81.7 MCH 26.8 MCHC 32.8 RDW 13.5 Plt Count 118 L D MPV 12.0 H Sodium 143 Potassium 3.8 Chloride 106 Carbon Dioxide 31 Anion Gap 6 L BUN 11 Creatinine 0.8 Creat Clearance w eGFR > 60 Random Glucose 105 Calcium 8.7 Total Bilirubin 0.4 D AST 20 D ALT 24 D Alkaline Phosphatase 80 Total Protein 7.4 Albumin 3.1 L Urine Color Yellow Urine Appearance Cloudy Urine pH 5.0 Ur Specific [place] 1.013 Urine Protein Negative Urine Glucose (UA) Negative Urine Ketones Negative Urine Blood Negative Urine Nitrite Negative Urine Bilirubin Negative Urine Urobilinogen Negative Ur Leukocyte Esterase 2+ H Urine WBC (Auto) 14 Urine RBC (Auto) 5 Ur Epithelial Cells Many Amorphous Urates Few Urine Bacteria Rare Urine Mucus Rare RPR Titer 11/07/17 07:00 WBC RBC Hgb Hct MCV MCH MCHC RDW Plt Count MPV Sodium Potassium Chloride Carbon Dioxide Anion Gap BUN Creatinine Creat Clearance w eGFR Random Glucose Calcium Total Bilirubin AST ALT Alkaline Phosphatase Total Protein Albumin Urine Color Urine Appearance Urine pH Ur Specific [place] Urine Protein Urine Glucose (UA) Urine Ketones Urine Blood Urine Nitrite Urine Bilirubin Urine Urobilinogen Ur Leukocyte Esterase Urine WBC (Auto) Urine RBC (Auto) Ur Epithelial Cells Amorphous Urates Urine Bacteria Urine Mucus RPR Titer Nonreactive aaox3 ambulating no acute distress Assessment: 11/08/17 10:55 withdrawal sx Plan: continue detox increase fluids
[2017-11-08] MEDS: diazePAM 5 MG TABLET PO PRN (17:44)
[2017-11-08] MEDS: THIAMINE HCL 100 MG TABLET (FP) PO SCH (22:19)
[2017-11-09] MEDS: diazePAM 5 MG TABLET PO PRN ×4 (01:58→19:09)
[2017-11-09] MEDS ORDERED: METHADONE HCL 40 MG DISPERSABLE TABLET ONE (04:20)
[2017-11-09] MEDS ORDERED: METHADONE HCL 10 MG TABLET ONE (04:21)
[2017-11-09] MEDS: METHADONE 80 MG, METHADONE 30 MG PO SCH (05:21)
[2017-11-09] MEDS: LOPERAMIDE HCL 2 MG CAPSULE PO PRN (09:49)
[2017-11-09] MEDS: PRENATAL VITAMINS W/ FOLIC ACID TABLET (FP) PO SCH (10:11)
[2017-11-09] MEDS: diazePAM 5 MG TABLET PO SCH ×2 (10:11→22:21)
[2017-11-09] MEDS: PANTOPRAZOLE 40 MG TABLET (FP) PO SCH (10:11)
[2017-11-09] MEDS: NICOTINE 14 MG/24 HOURS TOPICAL PATCH TD SCH (10:12)
--- NOTE | 2017-11-09 10:41 | PN ---
[facility] CIWA - CIWA Score Nausea/Vomitin Muscle Tremors: 3 Anxiety: 3 Agitation: 2 Paroxysmal Sweats: 3 Orientation: 0-Oriented Tacttile Disturbances: 2-Mild Itch/Numbness/Burn Auditory Disturbances: 0-None Visual Disturbances: 0-None Headache: 0-None Present CIWA-Ar Total Score: 16 S Progress Note (SOAP) Subjective: interrupted sleep, sweats , shakes, nausea , needs meds for gerd Objective: 11/09/17 10:39 Vital Signs Temperature 96.5 F L 11/09/17 06:35 Pulse Rate 58 L 11/09/17 06:35 Respiratory Rate 16 11/09/17 06:35 Blood Pressure 98/65 11/09/17 06:35 O2 Sat by Pulse Oximetry (%) Laboratory Tests 11/06/17 11/07/17 11/07/17 22:40 07:00 07:00 WBC 2.8 L RBC 4.43 Hgb 11.9 Hct 36.2 MCV 81.7 MCH 26.8 MCHC 32.8 RDW 13.5 Plt Count 118 L D MPV 12.0 H Sodium 143 Potassium 3.8 Chloride 106 Carbon Dioxide 31 Anion Gap 6 L BUN 11 Creatinine 0.8 Creat Clearance w eGFR > 60 Random Glucose 105 Calcium 8.7 Total Bilirubin 0.4 D AST 20 D ALT 24 D Alkaline Phosphatase 80 Total Protein 7.4 Albumin 3.1 L Urine Color Yellow Urine Appearance Cloudy Urine pH 5.0 Ur Specific [place] 1.013 Urine Protein Negative Urine Glucose (UA) Negative Urine Ketones Negative Urine Blood Negative Urine Nitrite Negative Urine Bilirubin Negative Urine Urobilinogen Negative Ur Leukocyte Esterase 2+ H Urine WBC (Auto) 14 Urine RBC (Auto) 5 Ur Epithelial Cells Many Amorphous Urates Few Urine Bacteria Rare Urine Mucus Rare RPR Titer 11/07/17 07:00 WBC RBC Hgb Hct MCV MCH MCHC RDW Plt Count MPV Sodium Potassium Chloride Carbon Dioxide Anion Gap BUN Creatinine Creat Clearance w eGFR Random Glucose Calcium Total Bilirubin AST ALT Alkaline Phosphatase Total Protein Albumin Urine Color Urine Appearance Urine pH Ur Specific [place] Urine Protein Urine Glucose (UA) Urine Ketones Urine Blood Urine Nitrite Urine Bilirubin Urine Urobilinogen Ur Leukocyte Esterase Urine WBC (Auto) Urine RBC (Auto) Ur Epithelial Cells Amorphous Urates Urine Bacteria Urine Mucus RPR Titer Nonreactive pt aox3 lying in bed Assessment: 11/09/17 10:40 withdrawal sx's gerd diarrhea 11/09/17 10:41 Plan: cont. detox increase fluids protonix 40mg /d imodium prn
[2017-11-09] MEDS: THIAMINE HCL 100 MG TABLET (FP) PO SCH (22:21)
[2017-11-10] MEDS ORDERED: METHADONE HCL 10 MG TABLET ONE (04:46)
[2017-11-10] MEDS ORDERED: METHADONE HCL 40 MG DISPERSABLE TABLET ONE (04:46)
[2017-11-10] MEDS: METHADONE 80 MG, METHADONE 30 MG PO SCH (05:14)
[2017-11-10] MEDS: LOPERAMIDE HCL 2 MG CAPSULE PO PRN ×2 (05:17→20:37)
[2017-11-10] MEDS ORDERED: diazePAM 5 MG TABLET PO SCH (10:00)
[2017-11-10] MEDS: PANTOPRAZOLE 40 MG TABLET (FP) PO SCH (10:57)
[2017-11-10] MEDS: NICOTINE 14 MG/24 HOURS TOPICAL PATCH TD SCH (10:57)
[2017-11-10] MEDS: PRENATAL VITAMINS W/ FOLIC ACID TABLET (FP) PO SCH (10:57)
--- NOTE | 2017-11-10 11:49 | PN ---
[facility] Progress Note (SOAP) Subjective: Anxiety,tremors,sweating,interrupted sleep. Objective: 11/10/17 11:48 Vital Signs - 8 hr 11/10/17 11/10/17 06:07 10:18 Temperature 97.7 F 96.8 F L Pulse Rate 69 77 Respiratory 18 16 Rate Blood Pressure 125/76 127/76 Laboratory Tests 11/06/17 11/07/17 11/07/17 22:40 07:00 07:00 WBC 2.8 L RBC 4.43 Hgb 11.9 Hct 36.2 MCV 81.7 MCH 26.8 MCHC 32.8 RDW 13.5 Plt Count 118 L D MPV 12.0 H Sodium 143 Potassium 3.8 Chloride 106 Carbon Dioxide 31 Anion Gap 6 L BUN 11 Creatinine 0.8 Creat Clearance w eGFR > 60 Random Glucose 105 Calcium 8.7 Total Bilirubin 0.4 D AST 20 D ALT 24 D Alkaline Phosphatase 80 Total Protein 7.4 Albumin 3.1 L Urine Color Yellow Urine Appearance Cloudy Urine pH 5.0 Ur Specific [place] 1.013 Urine Protein Negative Urine Glucose (UA) Negative Urine Ketones Negative Urine Blood Negative Urine Nitrite Negative Urine Bilirubin Negative Urine Urobilinogen Negative Ur Leukocyte Esterase 2+ H Urine WBC (Auto) 14 Urine RBC (Auto) 5 Ur Epithelial Cells Many Amorphous Urates Few Urine Bacteria Rare Urine Mucus Rare RPR Titer 11/07/17 07:00 WBC RBC Hgb Hct MCV MCH MCHC RDW Plt Count MPV Sodium Potassium Chloride Carbon Dioxide Anion Gap BUN Creatinine Creat Clearance w eGFR Random Glucose Calcium Total Bilirubin AST ALT Alkaline Phosphatase Total Protein Albumin Urine Color Urine Appearance Urine pH Ur Specific [place] Urine Protein Urine Glucose (UA) Urine Ketones Urine Blood Urine Nitrite Urine Bilirubin Urine Urobilinogen Ur Leukocyte Esterase Urine WBC (Auto) Urine RBC (Auto) Ur Epithelial Cells Amorphous Urates Urine Bacteria Urine Mucus RPR Titer Nonreactive labs noted Assessment: 11/10/17 11:48 Withdrawal sx. Plan: Continue detox
[2017-11-10] MEDS: THIAMINE HCL 100 MG TABLET (FP) PO SCH (22:16)
[2017-11-11] MEDS ORDERED: METHADONE HCL 10 MG TABLET ONE (04:31)
[2017-11-11] MEDS ORDERED: METHADONE HCL 40 MG DISPERSABLE TABLET ONE (04:31)
[2017-11-11] MEDS: METHADONE 80 MG, METHADONE 30 MG PO SCH (05:11)
[2017-11-11 06:01] VITALS: BP 112/67; PULSE 67; TEMP 97.5
[2017-11-11] MEDS: PANTOPRAZOLE 40 MG TABLET (FP) PO SCH (09:02)
[2017-11-11] MEDS: PRENATAL VITAMINS W/ FOLIC ACID TABLET (FP) PO SCH (09:03)
--- NOTE | 2017-11-11 10:02 | DS ---
[facility] Detox Discharge Summary Admission Date: 11/06/17 Discharge Date: 11/11/17 - History Present History: Cocaine Dependence, Opioid Dependence - Physical Exam Results Vital Signs: Vital Signs Temperature 97.5 F L 11/11/17 06:01 Pulse Rate 67 11/11/17 06:01 Respiratory Rate 16 11/11/17 06:01 Blood Pressure 112/67 11/11/17 06:01 O2 Sat by Pulse Oximetry (%) - Treatment Hospital Course: Detox Protocol Followed, Detoxed Safely, Responded well, Discharged Condition Good, Rehab Referral Accepted Patient has Accepted a Rehab Referral to: as per counselor arranged - Medication Discharge Medications: Ambulatory Orders Omeprazole Magnesium [Prilosec Otc] 20 mg PO BID #28 tablet. 11/11/17 - AMA Did Patient Leave Against Medical Advice: No
== END 2017-11-11 09:29 | disposition home or self-care (01) | DRG 773 ==
LOC: YASAS 18:31 → Y6N 21:06
PROVIDERS: ADMIT Internal Medicine; ATTEND Internal Medicine
PROC: HZ2ZZZZ Detoxification Services for Substance Abuse Treatment (ICD-10-PCS; principal; 2017-11-06)
DX: F13.230 Sedative, hypnotic or anxiolytic dependence with withdrawal, uncomplicated (principal); F11.20 Opioid dependence, uncomplicated; F14.20 Cocaine dependence, uncomplicated; F17.210 Nicotine dependence, cigarettes, uncomplicated; F31.9 Bipolar disorder, unspecified; Z21 Asymptomatic human immunodeficiency virus [HIV] infection status; B18.2 Chronic viral hepatitis C; K21.9 Gastro-esophageal reflux disease without esophagitis; R19.7 Diarrhea, unspecified; R00.1 Bradycardia, unspecified; Z86.73 Personal history of transient ischemic attack (TIA), and cerebral infarction without residual deficits; Z87.898 Personal history of other specified conditions; Z87.42 Personal history of other diseases of the female genital tract
CPT/HCPCS: 36415; 80053; 81003; 81015; 85027; 86593; 93005; 93010

== ENCOUNTER 2018-10-24 13:02 | Inpatient (IN) | payer OTHER ==
[2018-10-24 13:26] VITALS: BMI 21.9
--- NOTE | 2018-10-24 16:11 | HP ---
CIWA Score Nausea/Vomitin-Mild Nausea/No Vomiting Muscle Tremors: 2 Anxiety: 2 Agitation: 2 Paroxysmal Sweats: 2 Orientation: 0-Oriented Tacttile Disturbances: 0-None Auditory Disturbances: 0-None Visual Disturbances: 0-None Headache: 3-Moderate CIWA-Ar Total Score: 12 - Admission Criteria [facility] Guidelines: Admission for Medically Managed Detox: Requires at least one of the followin. CIWA greater than 12 2. Seizures within the past 24 hours 3. Delirium tremens within the past 24 hours 4. Hallucinations within the past 24 hours 5. Acute intervention needed for co occurring medical disorder 6. Acute intervention needed for co occurring psychiatric disorder 7. Severe withdrawal that cannot be handled at a lower level of care (continued vomiting, continued diarrhea, abnormal vital signs) requiring intravenous medication and/or fluids 8. Patient presents the following: CIWA greater than 12 Admission Criteria Met: Admission criteria met Admission ROS [facility] - [facility] Chief Complaint: Pt referred here by methadone porgram for benzo detox. On methadone 115mg/day at [facility]- got dosed today. 48 yo with HIV, GERD. Uses 2-4 tabs of 2 mg doses of zanax/day- buys it. Cocaine- $30/day smoking Heroin IV: $20/day, 2-3 bags HIV med- has not had meds for several months GERD- no meds DUR- no controlled substances UTox: willow, Fen, opiates, MTD and BZO Allergies/Adverse Reactions: Allergies Allergy/AdvReac Type Severity Reaction Status Date / Time No Known Allergies Allergy Verified 05/24/17 15:30 - Ebola screening Have you traveled outside of the country in the last 21 days: No Have you had contact with anyone from an Ebola affected area: No Have you been sick,other than usual withdrawal symptoms: No Do you have a fever: No Patient History - Patient Medical History Hx Anemia: No Hx Asthma: No Hx Chronic Obstructive Pulmonary Disease (COPD): No Hx Cancer: No Hx Cardiac Disorders: No Hx Congestive Heart Failure: No Hx Hypertension: No Hx Hypercholesterolemia: No Hx Pacemaker: No HX Cerebrovascular Accident: No Hx Seizures: No Hx Diabetes: No Hx Gastrointestinal Disorders: Yes (acid reflux) Hx Liver Disease: No Hx Genitourinary Disorders: No Hx Sexually Transmitted Disorders: Yes (syphilis at age 18) Hx Renal Disease (ESRD): No Hx Thyroid Disease: No Hx Human Immunodeficiency Virus (HIV): Yes (2012) Hx Hepatitis C: Yes (not treated) Hx Depression: Yes Hx Suicide Attempt: No Hx Bipolar Disorder: No Hx Schizophrenia: No - Patient Surgical History Past Surgical History: No Hx Neurologic Surgery: No Hx Cataract Extraction: No Hx Cardiac Surgery: No Hx Lung Surgery: No Hx Breast Surgery: No Hx Breast Biopsy: No Hx Abdominal Surgery: No Hx Appendectomy: No Hx Cholecystectomy: No Hx Genitourinary Surgery: No Hx Section: No Hx Orthopedic Surgery: No Anesthesia Reaction: No - PPD History Date: 05/26/17 - Reproductive History Last Menstrual Period: 05/15/17 - Smoking Cessation Smoking history: Current every day smoker Have you smoked in the past 12 months: Yes Aproximately how many cigarettes per day: 20 Hx Chewing Tobacco Use: No Initiated information on smoking cessation: Yes 'Breaking Loose' booklet given: 10/24/18 - Substance & Tx. History Hx Alcohol Use: No Hx Substance Use: Yes Substance Use Type: Cocaine, Heroin, Opiates, Tranquilizers - Substances Abused Cocaine Frequency: Daily Alprazolam (Xanax) Route: Oral Frequency: Daily Heroin Route: Injection Frequency: Daily Family Disease History - Family Disease History Family History: Denies Admission Physical Exam [facility] - Vital Signs Vital Signs: Vital Signs - 24 hr 10/24/18 13:24 Temperature 120 F H Pulse Rate 67 Respiratory 18 Rate Blood Pressure 99/66 - Physical General Appearance: Yes: Within Normal Limits HEENTM: Yes: Within Normal Limits Respiratory: Yes: Within Normal Limits Neck: Yes: Within Normal Limits Cardiology: Yes: Within Normal Limits Abdominal: Yes: Within Normal Limits Back: Yes: Within Normal Limits Musculoskeletal: Yes: Within Normal Limits Extremities: Yes: Within Normal Limits Neurological: Yes: Within Normal Limits, division engineer II-XII NML intact, Fully Oriented Integumentary: Yes: Within Normal Limits, Normal Color, Track Holliday Cleared for Admission [facility] - Detox or Rehab [facility] Level of Care: Medically Managed [facility] Breath Alcohol Content Breath Alcohol Content: 0 Urine Pregancy Test - Result Urine Test Results: Negative- NO Line Present Urine Drug Screen - Results Drug Screen Negative: No Urine Drug Screen Results: WILLOW-Cocaine, OPI-Opiates, BZO-Benzodiazepines, MTD- Methadone, FEN-Fentanyl
--- NOTE | 2018-10-24 16:23 | DS ---
S Detox Discharge Summary - Physical Exam Results Vital Signs: Vital Signs Temperature 120 F H 10/24/18 13:24 Pulse Rate 67 10/24/18 13:24 Respiratory Rate 18 10/24/18 13:24 Blood Pressure 99/66 10/24/18 13:24 O2 Sat by Pulse Oximetry (%) - Medication Discharge Medications: Ambulatory Orders Omeprazole Magnesium [Prilosec Otc] 20 mg PO BID #28 tablet. 11/11/17
[2018-10-24] MEDS ORDERED: MAGNESIUM HYDROX 2400MG/30ML ORAL SUSPENSION 30 ML CUP PO PRN (16:24)
[2018-10-24] MEDS ORDERED: MAGNESIUM CITRATE 300 ML BOTTLE PO PRN (16:24)
[2018-10-24] MEDS ORDERED: LOPERAMIDE HCL 2 MG CAPSULE PO PRN (16:24)
[2018-10-24] MEDS ORDERED: ACETAMINOPHEN 325 MG TABLET (FP) PO PRN (16:24)
[2018-10-24] MEDS ORDERED: IBUPROFEN 400 MG TABLET (FP) PO PRN (16:24)
[2018-10-24] MEDS ORDERED: guaiFENesin/D-METHORPHAN HB 10 ML UNIT-DOSE CUPS PO PRN (16:24)
[2018-10-24] MEDS ORDERED: P-EPHED 60MG/TRIPROLIDI 2.5MG TABLET PO PRN (16:24)
[2018-10-24] MEDS ORDERED: hydrOXYzine PAMOATE 25 MG CAPSULE (FP) PO PRN (16:24)
[2018-10-24] MEDS ORDERED: MENTHOL/PHENOL 1 EACH UD MM PRN (16:24)
[2018-10-24] MEDS ORDERED: diazePAM 5 MG TABLET PO ONE (18:30)
[2018-10-24] MEDS ORDERED: MELATONIN 5 MG TABLETS PO PRN (22:00)
[2018-10-24] MEDS: THIAMINE HCL 100 MG TABLET (FP) PO SCH (22:28)
[2018-10-24] MEDS: diazePAM 5 MG TABLET PO SCH (22:28)
[2018-10-25] MEDS: diazePAM 5 MG TABLET PO SCH ×3 (05:44→22:06)
[2018-10-25] MEDS ORDERED: METHADONE HCL 40 MG DISPERSABLE TABLET PO SCH (10:00)
[2018-10-25] MEDS: PRENATAL VITAMINS W/ FOLIC ACID TABLET (FP) PO SCH (10:24)
[2018-10-25] MEDS: diazePAM 5 MG TABLET PO PRN ×2 (10:24→16:01)
[2018-10-25 10:49] LABS: HEMOGLOBIN 11.1 GM/dL (10.7-15.3); MCH 25.4 pg (25.7-33.7); MCHC 31.9 g/dl (32.0-36.0); MEAN CELL VOLUME 79.6 fl (80-96); MEAN PLT VOLUME 11.5 fl (7.5-11.1); PLATELET COUNT 109 K/MM3 (134-434); RDW 15.3 % (11.6-15.6); WHITE BLOOD COUNT 3.2 K/mm3 (4.0-10.0)
[2018-10-25] MEDS ORDERED: METHADONE HCL 40 MG DISPERSABLE TABLET ONE (10:52)
[2018-10-25] MEDS ORDERED: METHADONE HCL 10 MG TABLET ONE (10:52)
[2018-10-25] MEDS ORDERED: METHADONE HCL 5 MG TABLET ONE (10:53)
[2018-10-25] MEDS: METHADONE 80 MG, METHADONE 30 MG, METHADONE 5 MG PO SCH (10:56)
[2018-10-25 11:16] LABS: ALBUMIN 2.8 g/dl (3.4-5.0); ALK PHOS 86 U/L (45-117); ANION GAP 7 MMOL/L (8-16); BILIRUBIN,TOTAL 0.5 mg/dL (0.2-1); BLOOD UREA NITROGEN 19 mg/dL (7-18); CALCIUM 7.9 mg/dL (8.5-10.1); CHLORIDE 107 mmol/L (98-107); CO2 25 mmol/L (21-32); CREATININE 0.8 mg/dL (0.55-1.3); GLUCOSE,RANDOM 97 mg/dL (74-106); POTASSIUM 3.7 mmol/L (3.5-5.1); SGOT/AST 18 U/L (15-37); SGPT/ALT 17 U/L (13-61); SODIUM 139 mmol/L (136-145); TOT PROT 6.9 g/dl (6.4-8.2)
--- NOTE | 2018-10-25 17:01 | PN ---
S CIWA - CIWA Score Nausea/Vomitin Muscle Tremors: None Anxiety: 4-Mod. Anxious/Guarded Agitation: 4-Moderately Restless Paroxysmal Sweats: 3 Orientation: 0-Oriented Tacttile Disturbances: 0-None Auditory Disturbances: 0-None Visual Disturbances: 0-None Headache: 2-Mild CIWA-Ar Total Score: 15 [facility] Progress Note (SOAP) Subjective: PATIENT C/O ANXIETY, RESTLESSNESS, INTERRUPTED SLEEP, NAUSEA/DIARRHEA AND SWEATING Objective: 10/25/18 16:59 Vital Signs Temperature 96.6 F L 10/25/18 09:42 Pulse Rate 65 10/25/18 09:42 Respiratory Rate 17 10/25/18 09:42 Blood Pressure 111/70 10/25/18 09:42 O2 Sat by Pulse Oximetry (%) Laboratory Tests 10/25/18 10/25/18 10/25/18 07:00 07:00 07:00 WBC 3.2 L RBC 4.40 Hgb 11.1 Hct 35.0 MCV 79.6 L MCH 25.4 L MCHC 31.9 L RDW 15.3 D Plt Count 109 L MPV 11.5 H Sodium 139 Potassium 3.7 Chloride 107 Carbon Dioxide 25 Anion Gap 7 L BUN 19 H Creatinine 0.8 Creat Clearance w eGFR > 60 Random Glucose 97 Calcium 7.9 L Total Bilirubin 0.5 AST 18 ALT 17 Alkaline Phosphatase 86 Total Protein 6.9 Albumin 2.8 L RPR Titer Nonreactive PE: ALERT AND ORIENTED X 3 SKIN WARM, +SWEATING ON CHEST AREA CAR S1S2 RESP CTA BL GI SOFT, BS+, NT EXT FULL ROM, AMB AD ELYSSA +RESTLESSNESS Assessment: 10/25/18 17:00 WITHDRAWAL SX Plan: CONTINUE DETOX ENCOURAGE ORAL FLUIDS CONTINUE TO MONITOR
[2018-10-25] MEDS: THIAMINE HCL 100 MG TABLET (FP) PO SCH (22:05)
[2018-10-26] MEDS ORDERED: METHADONE HCL 5 MG TABLET ONE (04:32)
[2018-10-26] MEDS ORDERED: METHADONE HCL 10 MG TABLET ONE (04:32)
[2018-10-26] MEDS ORDERED: METHADONE HCL 40 MG DISPERSABLE TABLET ONE (04:32)
[2018-10-26] MEDS: METHADONE 80 MG, METHADONE 30 MG, METHADONE 5 MG PO SCH (05:48)
[2018-10-26] MEDS: diazePAM 5 MG TABLET PO PRN ×3 (05:49→18:39)
[2018-10-26] MEDS: PRENATAL VITAMINS W/ FOLIC ACID TABLET (FP) PO SCH (10:49)
[2018-10-26] MEDS: diazePAM 5 MG TABLET PO SCH ×2 (10:49→22:56)
--- NOTE | 2018-10-26 14:44 | PN ---
S CIWA - CIWA Score Nausea/Vomitin-No Nausea/No Vomiting Muscle Tremors: 4-Moderate,w/Arms Extend Anxiety: 4-Mod. Anxious/Guarded Agitation: 4-Moderately Restless Paroxysmal Sweats: 1-Minimal Palms Moist Orientation: 0-Oriented Tacttile Disturbances: 0-None Auditory Disturbances: 0-None Visual Disturbances: 0-None Headache: 0-None Present CIWA-Ar Total Score: 13 BHS Progress Note (SOAP) Subjective: ANXIETY, SWEATS, IRRITABILITY. Objective: 10/26/18 14:43 Vital Signs 10/26/18 10:38 Temperature 97.2 F L Pulse Rate 65 Respiratory 16 Rate Blood Pressure 102/65 Laboratory Tests 10/25/18 10/25/18 10/25/18 07:00 07:00 07:00 WBC 3.2 L RBC 4.40 Hgb 11.1 Hct 35.0 MCV 79.6 L MCH 25.4 L MCHC 31.9 L RDW 15.3 D Plt Count 109 L MPV 11.5 H Sodium 139 Potassium 3.7 Chloride 107 Carbon Dioxide 25 Anion Gap 7 L BUN 19 H Creatinine 0.8 Creat Clearance w eGFR > 60 Random Glucose 97 Calcium 7.9 L Total Bilirubin 0.5 AST 18 ALT 17 Alkaline Phosphatase 86 Total Protein 6.9 Albumin 2.8 L RPR Titer Nonreactive Assessment: 10/26/18 14:43 WITHDRAWAL SX Plan: CONTINUE DETOX INCREASE PO FLUIDS
[2018-10-26] MEDS: MAG HYDROX/AL HYDROX/SIMETH 30 ML UNIT-DOSE CUP PO PRN (16:55)
[2018-10-26] MEDS: THIAMINE HCL 100 MG TABLET (FP) PO SCH (22:55)
[2018-10-27] MEDS: diazePAM 5 MG TABLET PO PRN ×3 (03:11→14:15)
[2018-10-27] MEDS ORDERED: METHADONE HCL 10 MG TABLET ONE (04:11)
[2018-10-27] MEDS ORDERED: METHADONE HCL 5 MG TABLET ONE (04:12)
[2018-10-27] MEDS ORDERED: METHADONE HCL 40 MG DISPERSABLE TABLET ONE (04:12)
[2018-10-27] MEDS: METHADONE 80 MG, METHADONE 30 MG, METHADONE 5 MG PO SCH (05:45)
[2018-10-27] MEDS: MAG HYDROX/AL HYDROX/SIMETH 30 ML UNIT-DOSE CUP PO PRN (07:23)
[2018-10-27] MEDS: PRENATAL VITAMINS W/ FOLIC ACID TABLET (FP) PO SCH (10:55)
[2018-10-27] MEDS: diazePAM 5 MG TABLET PO SCH ×2 (10:55→22:27)
[2018-10-27] MEDS: CALCIUM CARBONATE 650 MG TABLET PO SCH ×2 (14:16→22:28)
--- NOTE | 2018-10-27 17:12 | PN ---
[facility] Progress Note (SOAP) Subjective: Anxious, restless Objective: 10/27/18 17:10 Last Vital Signs Temp Pulse Resp BP Pulse Ox 98.4 F 72 20 114/61 10/27/18 15:24 10/27/18 15:24 10/27/18 15:24 10/27/18 15:24 Laboratory Tests 10/25/18 10/25/18 10/25/18 07:00 07:00 07:00 WBC 3.2 L RBC 4.40 Hgb 11.1 Hct 35.0 MCV 79.6 L MCH 25.4 L MCHC 31.9 L RDW 15.3 D Plt Count 109 L MPV 11.5 H Sodium 139 Potassium 3.7 Chloride 107 Carbon Dioxide 25 Anion Gap 7 L BUN 19 H Creatinine 0.8 Creat Clearance w eGFR > 60 Random Glucose 97 Calcium 7.9 L Total Bilirubin 0.5 AST 18 ALT 17 Alkaline Phosphatase 86 Total Protein 6.9 Albumin 2.8 L RPR Titer Nonreactive Labs reviewed: calcium 7.9 Assessment: 10/27/18 17:11 Withdrawal symptoms Noted with hypocalcemia Plan: Continue detox Encouraged PO water intake Hypocalcemia: start calcium carbonate bid Patient is for discharge home tomorrow
[2018-10-27] MEDS: THIAMINE HCL 100 MG TABLET (FP) PO SCH (22:27)
[2018-10-28] MEDS ORDERED: METHADONE HCL 10 MG TABLET ONE (04:39)
[2018-10-28] MEDS ORDERED: METHADONE HCL 5 MG TABLET ONE (04:40)
[2018-10-28] MEDS ORDERED: METHADONE HCL 40 MG DISPERSABLE TABLET ONE (04:40)
[2018-10-28] MEDS: METHADONE 80 MG, METHADONE 30 MG, METHADONE 5 MG PO SCH (05:40)
--- NOTE | 2018-10-28 09:11 | DS ---
[facility] Detox Discharge Summary Admission Date: 10/24/18 Discharge Date: 10/28/18 - History Present History: Sedative Dependence Additional Comments: 48 years old female admitted on 10/24/18 for benzo withdrawal stabilization completed detox regimen [facility] Pertinent Past History: patient agrees to follow up with her methadone program as well as infectious disease specialist for addiction mental and medical issues - Physical Exam Results Vital Signs: Vital Signs Temperature 96.6 F L 10/28/18 06:41 Pulse Rate 68 10/28/18 06:41 Respiratory Rate 18 10/28/18 06:41 Blood Pressure 108/67 10/28/18 06:41 O2 Sat by Pulse Oximetry (%) Pertinent Admission Physical Exam Findings: benzo withdrawal sx Vital Signs Temperature 97.2 F L 10/28/18 09:29 Pulse Rate 87 10/28/18 09:29 Respiratory Rate 18 10/28/18 09:29 Blood Pressure 119/77 10/28/18 09:29 O2 Sat by Pulse Oximetry (%) Laboratory Last Values WBC 3.2 K/mm3 (4.0-10.0) L 10/25/18 07:00 RBC 4.40 M/mm3 (3.60-5.2) 10/25/18 07:00 Hgb 11.1 GM/dL (10.7-15.3) 10/25/18 07:00 Hct 35.0 % (32.4-45.2) 10/25/18 07:00 MCV 79.6 fl (80-96) L 10/25/18 07:00 MCH 25.4 pg (25.7-33.7) L 10/25/18 07:00 MCHC 31.9 g/dl (32.0-36.0) L 10/25/18 07:00 RDW 15.3 % (11.6-15.6) D 10/25/18 07:00 Plt Count 109 K/MM3 (134-434) L 10/25/18 07:00 MPV 11.5 fl (7.5-11.1) H 10/25/18 07:00 Sodium 139 mmol/L (136-145) 10/25/18 07:00 Potassium 3.7 mmol/L (3.5-5.1) 10/25/18 07:00 Chloride 107 mmol/L (98-107) 10/25/18 07:00 Carbon Dioxide 25 mmol/L (21-32) 10/25/18 07:00 Anion Gap 7 MMOL/L (8-16) L 10/25/18 07:00 BUN 19 mg/dL (7-18) H 10/25/18 07:00 Creatinine 0.8 mg/dL (0.55-1.3) 10/25/18 07:00 Creat Clearance w eGFR > 60 (>60) 10/25/18 07:00 Random Glucose 97 mg/dL (74-106) 10/25/18 07:00 Calcium 7.9 mg/dL (8.5-10.1) L 10/25/18 07:00 Total Bilirubin 0.5 mg/dL (0.2-1) 10/25/18 07:00 AST 18 U/L (15-37) 10/25/18 07:00 ALT 17 U/L (13-61) 10/25/18 07:00 Alkaline Phosphatase 86 U/L (45-117) 10/25/18 07:00 Total Protein 6.9 g/dl (6.4-8.2) 10/25/18 07:00 Albumin 2.8 g/dl (3.4-5.0) L 10/25/18 07:00 RPR Titer Nonreactive (NONREACTIVE) 10/25/18 07:00 lab noted - Treatment Hospital Course: Detox Protocol Followed, Detoxed Safely, Responded well, Discharged Condition Good, Rehab Referral Accepted Patient has Accepted [facility] - Medication Discharge Medications: Ambulatory Orders NK [No Known Home Medication] 10/24/18 - Diagnosis (1) Uncomplicated sedative, hypnotic or anxiolytic withdrawal Status: Acute (2) Weight loss Status: Acute (3) HIV (human immunodeficiency virus infection) Status: Chronic (4) Hepatitis C Status: Chronic Qualifiers: Viral hepatitis chronicity: chronic Hepatic coma status: without hepatic coma Qualified Code(s): B18.2 - Chronic viral hepatitis C (5) History of syphilis Status: Chronic (6) Methadone maintenance therapy patient Status: Chronic (7) Nicotine dependence Status: Acute Qualifiers: Nicotine product type: cigarettes Substance use status: in withdrawal Qualified Code(s): F17.213 - Nicotine dependence, cigarettes, with withdrawal - AMA Did Patient Leave Against Medical Advice: No
[2018-10-28 09:31] VITALS: BP 119/77; PULSE 87; TEMP 97.2
[2018-10-28] MEDS: CALCIUM CARBONATE 650 MG TABLET PO SCH (09:56)
[2018-10-28] MEDS: PRENATAL VITAMINS W/ FOLIC ACID TABLET (FP) PO SCH (09:56)
[2018-10-28] MEDS ORDERED: diazePAM 5 MG TABLET PO SCH (10:00)
== END 2018-10-28 09:20 | disposition home or self-care (01) | DRG 774 ==
LOC: YASAS 13:02 → Y3N 17:56
PROC: HZ2ZZZZ Detoxification Services for Substance Abuse Treatment (ICD-10-PCS; principal; 2018-10-24)
DX: F13.230 Sedative, hypnotic or anxiolytic dependence with withdrawal, uncomplicated (principal); F14.20 Cocaine dependence, uncomplicated; F17.210 Nicotine dependence, cigarettes, uncomplicated; F32.9 Major depressive disorder, single episode, unspecified; Z21 Asymptomatic human immunodeficiency virus [HIV] infection status; B18.2 Chronic viral hepatitis C; K21.9 Gastro-esophageal reflux disease without esophagitis; E83.51 Hypocalcemia; R63.4 Abnormal weight loss; Z68.21 Body mass index [BMI] 21.0-21.9, adult; Z86.19 Personal history of other infectious and parasitic diseases
CPT/HCPCS: 36415; 80053; 85027; 86593

== ENCOUNTER 2019-08-25 22:50 | Inpatient (IN) | payer OTHER ==
--- NOTE | 2019-08-25 23:00 | PDOC ---
History of Present Illness - General Stated Complaint: ABDOMINAL PAIN Time Seen by Provider: 08/25/19 22:58 - History of Present Illness Initial Comments: 08/25/19 23:04 49 year old woman with a history of heroin, xanax and cocaine dependence, nicotine dependence, HIV (noncompliant), hepatitis c who presents diffuse abdominal pain and loose stools for 1 week. The patient was seeking detox but was sent over. She denies any chest pain, shortness of breath. She states she last used any recreational drugs 2 days ago. ROS GENERAL/CONSTITUTIONAL: No fever or chills. No weakness. HEAD, EYES, EARS, NOSE AND THROAT: No change in vision. No ear pain or discharge. No sore throat. CARDIOVASCULAR: No chest pain or shortness of breath RESPIRATORY: No cough, wheezing, or hemoptysis. GASTROINTESTINAL: No nausea, vomiting, diarrhea or constipation. GENITOURINARY: No dysuria, frequency, or change in urination. MUSCULOSKELETAL: No joint or muscle swelling or pain. No neck or back pain. SKIN: No rash PE GENERAL: Awake, alert, and fully oriented, in no acute distress HEAD: No signs of trauma, normocephalic, atraumatic EYES: EOMI, sclera anicteric, conjunctiva clear ENT: poor dentition, dry mucosa NECK: Normal ROM, supple, LUNGS: No distress, speaks full sentences, clear to auscultation bilaterally HEART: Regular rate and rhythm, normal S1 and S2, no murmurs, rubs or gallops, peripheral pulses normal and equal bilaterally. ABDOMEN: Soft, slight diffuse tenderness. No guarding, no rebound. No masses EXTREMITIES : Normal inspection, Normal range of motion, no edema. No clubbing or cyanosis. NEUROLOGICAL: Cranial nerves II through XII grossly intact. Normal speech, no focal sensorimotor deficits SKIN: warm, multiple track carr throughout MDM DDX including but not limited to: sepsis consider urine vs pulm ED Course: cefepime and vancomycin dosed cxr with no acute infiltrate urine with uti Plan for admission for detox and iv abx [place]iano, PGY2 Emergency Medicine Past History - Past Medical History Allergies/Adverse Reactions: Allergies Allergy/AdvReac Type Severity Reaction Status Date / Time No Known Allergies Allergy Verified 08/25/19 23:20 Home Medications: Ambulatory Orders Amoxicillin/Potassium Clav [Augmentin 875-125 Tablet] 1 each PO BID #13 tablet 08/29/19 Methadone [Dolophine -] 100 mg PO DAILY 08/29/19 Thiamine HCl [Vitamin B1 -] 100 mg PO DAILY #30 tablet 08/29/19 Anemia: No Asthma: No Cancer: No Cardiac Disorders: No CVA: No COPD: No CHF: No Diabetes: No GI Disorders: Yes (acid reflux) Disorders: No HTN: No Hypercholesterolemia: No Kidney Stones: No Liver Disease: No Seizures: No Thyroid Disease: No - Surgical History Abdominal Surgery: No Appendectomy: No Cardiac Surgery: No Cholecystectomy: No Lung Surgery: No Neurologic Surgery: No Orthopedic Surgery: No - Reproductive History PID: No - Psycho Social/Smoking Cessation Hx Smoking History: Current every day smoker Have you smoked in the past 12 months: Yes Number of Cigarettes Smoked Daily: 2 'Breaking Loose' booklet given: 08/25/19 Hx Alcohol Use: Yes Drug/Substance Use Hx: Yes Substance Use Type: Alcohol, Cocaine, Heroin, Opiates, Tranquilizers (Benzo) Hx Substance Use Treatment: Yes (detox, [facility]) ED Treatment Course - LABORATORY CBC & Chemistry Diagram: 08/28/19 07:40 08/28/19 07:40 Discharge - Discharge Information Problems reviewed: Yes Clinical Impression/Diagnosis: HIV (human immunodeficiency virus infection), UTI (urinary tract infection) Condition: Improved Disposition: HOME - Admission Yes - Follow up/Referral - Patient Discharge Instructions - Post Discharge Activity
[2019-08-25] MEDS ORDERED: ACETAMINOPHEN 1000 MG/100 ML VIAL (NON FORMULARY) IVPB ONE (23:35)
[2019-08-25] MEDS ORDERED: CEFEPIME HCL/D5W 2 GM/50 ML BAG IVPB ONE (23:46)
[2019-08-25] MEDS ORDERED: VANCOMYCIN 1,000 MG in DEXTROSE 5%-WATER - 250 ML IVPB ONE (23:47)
[2019-08-25 23:49] LABS: EPI CELLS 2.2 /HPF (0-5/HPF); HYALINE CASTS 2 /lpf (0-8); URINE APPEARANCE CLOUDY; URINE BACTERIA 4047.8 /hpf (NEGATIVE); URINE BILIRUBIN NEGATIVE (NEGATIVE); URINE COLOR ORANGE; URINE GLUCOSE (UA) NEGATIVE (NEGATIVE); URINE KETONE NEGATIVE (NEGATIVE); URINE LEUK ESTERASE 3+ (NEGATIVE); URINE NITRITE POSITIVE (NEGATIVE); URINE PROTEIN 2+ (NEGATIVE); URINE RBC 252 /hpf (0-4); URINE WBC 170 /hpf (0-5)
[2019-08-26] MEDS ORDERED: VANCOMYCIN 1 GRAM (PRE-DOCKED) 1,000 MG/250 ML BAG IVPB ONE ×3 (00:21→10:00)
[2019-08-26] MEDS ORDERED: ACETAMINOPHEN INJECTION 100 ML IVPB ONE (00:21)
[2019-08-26] MEDS ORDERED: CEFEPIME 1 GM/100 ML BAG IVPB ONE (00:22)
[2019-08-26] MEDS: SODIUM CHLORIDE 2,000 ML IV SCH (00:28)
[2019-08-26 00:33] LABS: BASO % 0.5 % (0-2.0); EOS % 0.8 % (0-4.5); HEMATOCRIT 29.2 % (32.4-45.2); HEMOGLOBIN 9.8 GM/dL (10.7-15.3); MCH 26.3 pg (25.7-33.7); MCHC 33.5 g/dl (32.0-36.0); MEAN CELL VOLUME 78.5 fl (80-96); MEAN PLT VOLUME 12.4 fl (7.5-11.1); MONO % 9.8 % (3.8-10.2); NEUT % 67.9 % (42.8-82.8); PLATELET COUNT 111 K/MM3 (134-434); RBC 3.72 M/mm3 (3.60-5.2); RDW 13.9 % (11.6-15.6); WHITE BLOOD COUNT 6.5 K/mm3 (4.0-10.0)
--- NOTE | 2019-08-26 00:33 | PDOC ---
Attending Attestation - Resident Resident Name: Santa Mraiano - ED Attending Attestation I have performed the following: I have examined & evaluated the patient, The case was reviewed & discussed with the resident, I agree w/resident's findings & plan - HPI HPI: 08/26/19 00:31 see resident hpi - Physicial Exam PE: 08/26/19 00:32 agree with resident exam - Medical Decision Making 08/26/19 00:32 49-year-old female with history of polysubstance abuse, HIV hepatitis C currently with fever Urinalysis indicative of urinary tract infection Plan for admission to medical service due to on treated HIV infection, possible AIDS as well as significant fever Antibiotics administered in the emergency department
[2019-08-26] MEDS ORDERED: CEFEPIME 2 GM/100 ML BAG IVPB ONE (00:34)
[2019-08-26 00:41] LABS: INR 1.07 (0.83-1.09); PROTHROMBIN TIME (PATIENT) 12.6 SEC (9.7-13.0); VENOUS PC02 39.6 mmHg (38-52); VENOUS PH 7.41 (7.31-7.41); VENOUS PO2 50.6 mmHg (28-48)
[2019-08-26 00:44] LABS: ACTIVATED PTT 33.7 SECONDS (25.2-36.5)
[2019-08-26 00:56] LABS: ALBUMIN 2.8 g/dl (3.4-5.0); BILIRUBIN,TOTAL 0.4 mg/dL (0.2-1); BLOOD UREA NITROGEN 12.5 mg/dL (7-18); CALCIUM 7.8 mg/dL (8.5-10.1); TOT PROT 7.3 g/dl (6.4-8.2)
[2019-08-26] MEDS ORDERED: LORazepam 2 MG/ML SDV VIAL IVPUSH PRN (02:33)
--- NOTE | 2019-08-26 02:38 | PN ---
Teaching Attending Note Name of Resident: Inge Springer ATTENDING PHYSICIAN STATEMENT I saw and evaluated the patient. I reviewed the resident's note and discussed the case with the resident. I agree with the resident's findings and plan as documented. SUBJECTIVE: Patient refused to be interviewed and her information was obtained from chart. 49-year-old woman with a history of uncontrolled HIV not on ART medications, unknown CD4 count or viral load, polysubstance abuse including IV heroin, crack cocaine, Xanax, nicotine sent from [facility] to emergency room because of high fever that she developed at detox facility. Patient used IV heroin 1 day ago. She does not have any complaints at this time. She injects heroin into her arms bilaterally. OBJECTIVE: Last Vital Signs Temp Pulse Resp BP Pulse Ox 98.3 F 65 20 101/46 L 100 08/26/19 02:17 08/26/19 02:17 08/26/19 02:17 08/26/19 02:17 08/26/19 02:17 GENERAL: Well developed, well nourished. Awake and alert. No acute distress. HEENT: Normocephalic, atraumatic. PERRLA, EOMI. No conjunctival pallor. Sclera are non- icteric. Moist mucous membranes. Oropharynx is clear. NECK: Supple. Full ROM. No JVD. Carotid pulses 2+ and symmetric, without bruits. No thyromegaly. No lymphadenopathy. CARDIOVASCULAR: Regular rate and rhythm. No murmurs, rubs, or gallops. Distal pulses are 2+ and symmetric. PULMONARY: No evidence of respiratory distress. Lungs clear to auscultation bilaterally. No wheezing, rales or rhonchi. ABDOMINAL: Soft. Non-tender. Non-distended. No rebound or guarding. No organomegaly. Normoactive bowel sounds. MUSCULOSKELETAL Normal range of motion at all joints. No bony deformities or tenderness. No CVA tenderness. EXTREMITIES: No cyanosis. No clubbing. No edema. No calf tenderness. SKIN: Bilateral upper extremity track carr appreciated PSYCHIATRIC: Cooperative. Good eye contact. Appropriate mood and affect. Abnormal Lab Results 08/25/19 08/26/19 08/26/19 23:39 00:06 00:06 Hgb 9.8 L Hct 29.2 L D MCV 78.5 L Plt Count 111 L MPV 12.4 H POC VBG pO2 VBG O2 Sat (Hoa) Anion Gap 7 L Random Glucose 129 H Calcium 7.8 L Albumin 2.8 L Urine Protein 2+ H Urine Blood 3+ H Urine Nitrite Positive H Urine Urobilinogen 2.0 H Ur Leukocyte Esterase 3+ H 08/26/19 00:06 Hgb Hct MCV Plt Count MPV POC VBG pO2 50.6 H VBG O2 Sat (Hoa) 85.8 H Anion Gap Random Glucose Calcium Albumin Urine Protein Urine Blood Urine Nitrite Urine Urobilinogen Ur Leukocyte Esterase Imaging reviewed ASSESSMENT AND PLAN: 49-year-old woman,Active IV drug abuser, immunocompromised, Uncontrolled HIV, hepatitis C with Sepsis likely secondary to IV needle use. Must rule out infective endocarditis. Possible also left-sided pyelonephritis as patient has left CVA tenderness. Likely uncontrolled HIV as patient has not been taking ART medications. Unknown CD4 count or viral load. Admit to MedSurg Ideally should have performed 3 sets of blood cultures 30 minutes apart prior to antibiotic administration ESR, CRP Obtain medical records from patient's HIV physician Continue vancomycin and cefepime empirically Infectious disease consultation HIV viral load and CD4 count Hepatitis C RNAQuantitative renal sonogramTo assess for evidence of pyelonephritis #Pancytopenia-may be multifactorial, Likely related to underlying HIV, hepatitis C, polysubstance abuse.Microcytic anemiashould rule out GI bleed Stool for fecal occult blood Ferritin, iron studies Vitamin B12 Abdominal ultrasound to assess for splenomegaly #Polysubstance abuse Rn Training IV drug abuse cessation, crack cocaine cessation, tobacco use cessation [facility] protocol Nicotine patch Methadone as needed if acute withdrawal from opiates Must return to detox upon discharge Subcutaneous heparin for DVT prophylaxis
--- NOTE | 2019-08-26 02:49 | HP ---
CHIEF COMPLAINT: abdominal pain and high fever PCP: none HISTORY OF PRESENT ILLNESS: 49 year old female with PMH of polysubstance abuse (cocaine, IV heroin, xanax, nicotine, alcohol), untreated HIV (last ID visit was 2 years ago) and hepatitis C was sent from [facility] for lower abdominal pain and diarrhea with high grade fever. Pt describes a non-radiating sharp pain in the suprapubic region that is a 10/10 for the past week. Pt has had non-bloody yellow-brown diarrhea for the last month and reports 3 instances of fecal incontinence during this time period. She denies headaches, dizziness, shortness of breath, heart palpitations , dysuria, burning with urination, urinary urgency, nausea or vomiting. Pt admits to IV drug injection 2 days ago. ER course was notable for: (1) Fever 103.7F, CBC with anemia 9.8/29.2 MCV 78.5 and thrombocytopenia 111k. CMP with BG 129 and normal LFTs. CXR negative (2) UA orange, cloudy, Ph 6, 2+ protein, 3+ blood, positive nitrite, 3+ leukocyte esterase, 170 WBC, 252 RBC, Bacteria >4k (3) vanc and cefepime Recent Travel: denies PAST MEDICAL HISTORY: as above PAST SURGICAL HISTORY: denies Social History: Smokin cig a day ( pt reluctant to answer further) Alcohol: daily Drugs: as described above Allergies No Known Allergies Allergy (Verified 08/25/19 23:20) HOME MEDICATIONS: Home Medications Medication Instructions Recorded NK [No Known Home Medication] 10/24/18 REVIEW OF SYSTEMS CONSTITUTIONAL: fever, chills, diaphoresis Absent: generalized weakness, malaise, loss of appetite, weight change HEENT: Absent: rhinorrhea, nasal congestion, throat pain, throat swelling, difficulty swallowing, mouth swelling, ear pain, eye pain, visual changes CARDIOVASCULAR: Absent: chest pain, syncope, palpitations, irregular heart rate, lightheadedness , peripheral edema RESPIRATORY: Absent: cough, shortness of breath, dyspnea with exertion, orthopnea, wheezing, stridor, hemoptysis GASTROINTESTINAL: abdominal pain, diarrhea Absent:, abdominal distension, nausea, vomiting, , constipation, melena, hematochezia GENITOURINARY: Absent: dysuria, frequency, urgency, hesitancy, hematuria, flank pain, genital pain MUSCULOSKELETAL: Absent: myalgia, arthralgia, joint swelling, back pain, neck pain SKIN: Absent: rash, itching, pallor HEMATOLOGIC/IMMUNOLOGIC: Absent: easy bleeding, easy bruising, lymphadenopathy, frequent infections ENDOCRINE: Absent: unexplained weight gain, unexplained weight loss, heat intolerance, cold intolerance NEUROLOGIC: Absent: headache, focal weakness or paresthesias, dizziness, unsteady gait, seizure, mental status changes, bladder or bowel incontinence PSYCHIATRIC: Absent: anxiety, depression, suicidal or homicidal ideation, hallucinations. PHYSICAL EXAMINATION Vital Signs - 24 hr 08/25/19 08/26/19 08/26/19 23:16 01:41 02:17 Temperature 103.7 F H 98.3 F Pulse Rate 82 Pulse Rate [ 65 Apical] Respiratory 20 20 Rate Blood Pressure 107/55 L Blood Pressure 101/46 L [Left Arm] O2 Sat by Pulse 97 97 100 Oximetry (%) GENERAL: Awake, alert, and fully oriented, in no acute distress. HEAD: No signs of trauma, normocephalic, atraumatic EYES: EOMI, sclera anicteric, conjunctiva clear ENT: poor dentition, dry mucosa NECK: Normal ROM, supple LUNGS: clear to auscultation bilaterally, no wheezes, rales or ronchi HEART: Regular rate and rhythm, normal S1 and S2, no murmurs, rubs or gallops. ABDOMEN: Soft, slight diffuse tenderness more pronounced in suprapubic region. No guarding, no rebound. No masses. POSITIVE LEFT CVA TENDERNESS EXTREMITIES : Normal inspection, Normal range of motion, no edema. No clubbing or cyanosis. NEUROLOGICAL: Cranial nerves II through XII grossly intact. Normal speech, no focal sensorimotor deficits SKIN: warm, multiple track carr b/l upper extremities Laboratory Results - last 24 hr 08/25/19 08/25/19 08/26/19 23:39 23:39 00:06 WBC RBC Hgb Hct MCV MCH MCHC RDW Plt Count MPV Absolute Neuts (auto) Neutrophils % Lymphocytes % Monocytes % Eosinophils % Basophils % Nucleated RBC % PT with INR 12.60 INR 1.07 PTT (Actin FS) 33.7 VBG pH POC VBG pCO2 POC VBG pO2 VBG HCO3 VBG O2 Sat (Hoa) VBG Base Excess Sodium Potassium Chloride Carbon Dioxide Anion Gap BUN Creatinine Est GFR (CKD-EPI)AfAm Est GFR (CKD-EPI)NonAf Random Glucose Lactic Acid Calcium Total Bilirubin AST ALT Alkaline Phosphatase Troponin I Total Protein Albumin Urine Color Hale Urine Appearance Cloudy Urine pH 6.0 Ur Specific [place] 1.011 Urine Protein 2+ H Urine Glucose (UA) Negative Urine Ketones Negative Urine Blood 3+ H Urine Nitrite Positive H Urine Bilirubin Negative Urine Urobilinogen 2.0 H Ur Leukocyte Esterase 3+ H Urine WBC (Auto) 170 Urine RBC (Auto) 252 Urine Casts (Auto) 2 U Epithel Cells (Auto) 2.2 Urine Bacteria (Auto) 4047.8 Urine HCG, Qual Negative 08/26/19 08/26/19 08/26/19 00:06 00:06 00:06 WBC 6.5 RBC 3.72 Hgb 9.8 L Hct 29.2 L D MCV 78.5 L MCH 26.3 MCHC 33.5 RDW 13.9 Plt Count 111 L MPV 12.4 H Absolute Neuts (auto) 4.4 Neutrophils % 67.9 Lymphocytes % 21.0 Monocytes % 9.8 Eosinophils % 0.8 Basophils % 0.5 Nucleated RBC % 0 PT with INR INR PTT (Actin FS) VBG pH POC VBG pCO2 POC VBG pO2 VBG HCO3 VBG O2 Sat (Hoa) VBG Base Excess Sodium 136 Potassium 4.0 Chloride 104 Carbon Dioxide 26 Anion Gap 7 L BUN 12.5 Creatinine 1.0 Est GFR (CKD-EPI)AfAm 77.15 Est GFR (CKD-EPI)NonAf 66.57 Random Glucose 129 H Lactic Acid Calcium 7.8 L Total Bilirubin 0.4 AST 27 ALT 16 Alkaline Phosphatase 81 Troponin I < 0.02 Total Protein 7.3 Albumin 2.8 L Urine Color Urine Appearance Urine pH Ur Specific [place] Urine Protein Urine Glucose (UA) Urine Ketones Urine Blood Urine Nitrite Urine Bilirubin Urine Urobilinogen Ur Leukocyte Esterase Urine WBC (Auto) Urine RBC (Auto) Urine Casts (Auto) U Epithel Cells (Auto) Urine Bacteria (Auto) Urine HCG, Qual 08/26/19 08/26/19 00:06 00:06 WBC RBC Hgb Hct MCV MCH MCHC RDW Plt Count MPV Absolute Neuts (auto) Neutrophils % Lymphocytes % Monocytes % Eosinophils % Basophils % Nucleated RBC % PT with INR INR PTT (Actin FS) VBG pH 7.41 POC VBG pCO2 39.6 POC VBG pO2 50.6 H VBG HCO3 24.3 VBG O2 Sat (Hoa) 85.8 H VBG Base Excess 0.2 Sodium Potassium Chloride Carbon Dioxide Anion Gap BUN Creatinine Est GFR (CKD-EPI)AfAm Est GFR (CKD-EPI)NonAf Random Glucose Lactic Acid 1.5 Calcium Total Bilirubin AST ALT Alkaline Phosphatase Troponin I Total Protein Albumin Urine Color Urine Appearance Urine pH Ur Specific [place] Urine Protein Urine Glucose (UA) Urine Ketones Urine Blood Urine Nitrite Urine Bilirubin Urine Urobilinogen Ur Leukocyte Esterase Urine WBC (Auto) Urine RBC (Auto) Urine Casts (Auto) U Epithel Cells (Auto) Urine Bacteria (Auto) Urine HCG, Qual ASSESSMENT/PLAN: 49 year old female with PMH of polysubstance abuse (cocaine, IV heroin, xanax, nicotine, alcohol), untreated HIV and hepatitis C was sent from [facility] for lower abdominal pain and diarrhea with high grade fever, found to have a UTI with positive CVA tenderness. cant r/o infective endocarditis with recent IV drug use. UTI/ Pyelonephritis. r/o infective endocarditis f/u urine and blood cultures. second set sent ID consult Dr Solorzano received vanc and cefepime in ED. will continue until speciation and sensitivity and ID consult rec renal U/S for pyelonephritis eval echo to assess for vegetations ESR, CRP Uncontrolled HIV and Hepatitis C Off HAART. last visit to ID doctor was 2 yrs ago HIV viral load and CD4 count Hepatitis C RNA Quantitative for status with hepatitis panel stool culture, O& P,WBC if diarrhea recurs Obtain medical records from patient's HIV physician Pancytopenia/ microcytic anemia most likely 2/2 HIV, hepatitis C, polysubstance abuse basic anemia work up sent Stool for fecal occult blood Ferritin, iron studies, retic count Vitamin B12 Abdominal ultrasound to assess for hepatosplenomegaly Polysubstance abuse ativan 2mg PRN Q4h Nicotine patch 14 mg thiamine, folate, MTVs Methadone as needed if acute withdrawal from opiates. pt supposedly on 100 of methadone. attempted to reach out to clinic in [place]. Please verify detox upon discharge FEN regular diet DVT hep subQ Visit type - Emergency Visit Emergency Visit: Yes ED Registration Date: 08/26/19 Care time: The patient presented to the Emergency Department on the above date and was hospitalized for further evaluation of their emergent condition. - New Patient This patient is new to me today: Yes Date on this admission: 08/26/19 - Critical Care Critical Care patient: No ATTENDING PHYSICIAN STATEMENT I saw and evaluated the patient. I reviewed the resident's note and discussed the case with the resident. I agree with the resident's findings and plan as documented. SUBJECTIVE: OBJECTIVE: ASSESSMENT AND PLAN:
[2019-08-26 03:10] LABS: ANISOCYTOSIS 2+; MACROCYTOSIS 0; PLATELET ESTIMATE DECREASED
[2019-08-26 03:40] VITALS: BMI 22.3
[2019-08-26] MEDS ORDERED: ACETAMINOPHEN 325 MG TABLET (FP) PO PRN (05:37)
[2019-08-26] MEDS: HEPARIN NA (PORCINE) 5,000 UNITS/ML 1ML VIAL SQ SCH ×3 (06:21→21:22)
[2019-08-26] MEDS ORDERED: CEFEPIME HCL 1 GM VIAL (RESTRICTED TO ID) ONE (09:15)
[2019-08-26] MEDS ORDERED: DEXTROSE 5%-WATER - 50 ML IVPB ONE (09:15)
--- NOTE | 2019-08-26 09:20 | EKG ---
Test Reason : Blood Pressure : / mmHG Vent. Rate : 071 BPM Atrial Rate : 071 BPM P-R Int : 148 ms QRS Dur : 088 ms QT Int : 364 ms P-R-T Axes : 066 068 091 degrees QTc Int : 395 ms NORMAL SINUS RHYTHM NORMAL ECG WHEN COMPARED WITH ECG OF 07-NOV-2017 10:25, NON-SPECIFIC CHANGE IN ST SEGMENT IN ANTERIOR LEADS Confirmed by MD Arielle, Dakotah ([id number]) on 08/26/2019 9:20:35 AM Referred By: Confirmed By:Dakotah Guzmán MD
[2019-08-26] MEDS ORDERED: VANCOMYCIN 1 GM in D5W (PRE-DOCKED) 1,000 MG/250 ML IVPB SCH (10:00)
[2019-08-26] MEDS ORDERED: CEFEPIME HCL/D5W 1 GM/50 ML BAG IVPB SCH (10:00)
[2019-08-26] MEDS ORDERED: CEFEPIME 1 GM in DEXTROSE 5%-WATER - 50 ML IVPB SCH (10:00)
[2019-08-26] MEDS ORDERED: chlordiazePOXIDE HCL 10 MG CAPSULE PO PRN (10:13)
[2019-08-26] MEDS ORDERED: METHADONE HCL 10 MG TABLET (FOR DETOX USE ONLY) PO SCH (10:15)
[2019-08-26] MEDS ORDERED: chlordiazePOXIDE 5 MG CAPSULE PO PRN (10:38)
--- NOTE | 2019-08-26 10:50 | ECHO ---
Version: 1 Name: TAMIKA ALEXIS Exam: Adult Echocardiogram Study Date: 08/26/2019, 9:48 AM Age: 49 Years MMode/2D Measurements & Calculations IVSd: 0.81 cm LVIDs: 2.41 cm LVIDd: 3.1 cm LVPWd: 1.29 cm ACS: 1.97 cm LVOT diam: 1.74 cm Doppler Measurements & Calculations MV E max petar: 107.1 cm/sec Med E/e': 12.1 MV A max petar: 85.4 cm/sec Med Peak E' Petar: 8.9 cm/sec MV E/A: 1.25 Lat E/e': 10.7 Lat Peak E' Petar: 10.0 cm/sec Ao max P.6 mmHg JERMAINE(I,D): 1.80 cm Ao mean P.7 mmHg LV V1 mean: 77.8 cm/sec Ao V2 max: 162.9 cm/sec LV V1 mean P.7 mmHg TR max petar: 295.8 cm/sec TR max P.2 mmHg Left Ventricle The left ventricular size, thickness and function are normal. Ejection Fraction = 70%. The transmitr al spectral Doppler flow pattern is normal for age. Right Ventricle The right ventricle is normal in size and function. Atria Normal left and right atrial size and function. Mitral Valve The mitral valve is normal. There is mild mitral regurgitation. Tricuspid Valve The tricuspid valve is normal in structure and function. There is mild tricuspid regurgitation. Aortic Valve The aortic valve is normal in structure and function. Pulmonic Valve The pulmonic valve is not well seen, but is grossly normal. Great Vessels The aortic root is normal size. Normal aortic arch, descending and ascending aorta. Pericardium/Pleura There is no pericardial effusion. Summary Statements The left ventricular size, thickness and function are normal Ejection Fraction = 70%. The transmitral spectral Doppler flow pattern is normal for age. The right ventricle is normal in size and function. Normal left and right atrial size and function. The mitral valve is normal. There is mild mitral regurgitation. The tricuspid valve is normal in structure and function. There is mild tricuspid regurgitation. The aortic valve is normal in structure and function. The pulmonic valve is not well seen, but is grossly normal. The aortic root is normal size. Normal aortic arch, descending and ascending aorta There is no pericardial effusion. Tru Hodge 08/26/2019, 10:50 AM Ordering Physician: VALENTÍN REICH Performed By: Evelyn Simental
[2019-08-26] MEDS ORDERED: METHADONE HCL 10 MG TABLET ONE (11:10)
[2019-08-26] MEDS ORDERED: METHADONE HCL 40 MG DISPERSABLE TABLET ONE (11:10)
[2019-08-26] MEDS: FOLIC ACID 1 MG TABLET (FP) PO SCH (11:14)
[2019-08-26] MEDS: THIAMINE HCL 100 MG TABLET (FP) PO SCH (11:14)
[2019-08-26] MEDS: METHADONE 80 MG, METHADONE 20 MG PO SCH (11:14)
[2019-08-26] MEDS: NICOTINE 14 MG/24 HOURS TOPICAL PATCH TD SCH (11:14)
[2019-08-26] MEDS: MULTIVITAMINS (DAILY MVI) TABLET (FP) PO SCH (11:14)
--- NOTE | 2019-08-26 12:46 | CON.ID ---
Consult Reason for Consultation:: HIV - History of Present Illness Chief Complaint: diarrhea x1 month, suprapubic pain x1 day History of Present Illness: Ms. Chowdhury is a 49 y/o female with HIV (diagnosed 2012 and never treated), and hepatitis C (untreated), and polysubstance use in methadone program (cocaine , IV heroin, BZD, nicotine, and alcohol) who presents with diarrhea x1 month and suprapubic pain x1 day. She reports yellowish/brownish diarrhea with 3 episodes of fecal incontinence over the course of the month. She has not had diarrhea since presenting to the ED. She also reports new onset suprapubic pain that radiates to the back bilaterally as well as hematuria. She denies dysuria, nausea, and vomiting. She has no history of cystitis or pyelonephritis. She was at [facility] for detox and was sent to ED for fever. Pt reports not having seen ID in 2 years and would like to have a new physician closer to home. She has not been treated for HIV or hepatitis C at any point. She is unsure of last CD4 count. She denies any opportunistic infections or recent hospitalizations. - History Source History Provided By: Patient, Medical Record Limitations to Obtaining History: No Limitations - Past Medical History Cardio/Vascular: Yes: Murmur ...LMP: 08/25/19 Heme/Onc: Yes: Anemia Infectious Disease: Yes: HIV, Other (Hepatitis C) Psych: Yes: Addictions - Alcohol/Substance Use Hx Alcohol Use: Yes History of Substance Use: reports: Cocaine, Heroin, Prescription - Smoking History Smoking history: Current every day smoker Have you smoked in the past 12 months: Yes Aproximately how many cigarettes per day: 2 - Social History ADL: Independent Home Medications - Allergies Allergies/Adverse Reactions: Allergies Allergy/AdvReac Type Severity Reaction Status Date / Time No Known Allergies Allergy Verified 08/25/19 23:20 - Home Medications Home Medications: Ambulatory Orders NK [No Known Home Medication] 10/24/18 Review of Systems - Review of Systems Constitutional: denies: Chills, Fever Gastrointestinal: reports: Abdominal Pain, Diarrhea. denies: Nausea, Vomiting Genitourinary: reports: Flank Pain. denies: Dysuria Musculoskeletal: denies: Muscle Pain Physical Exam Vital Signs: Vital Signs Temperature 98.8 F 08/26/19 06:00 Pulse Rate 62 08/26/19 06:00 Respiratory Rate 18 08/26/19 06:00 Blood Pressure 109/64 08/26/19 06:00 O2 Sat by Pulse Oximetry (%) 99 08/26/19 03:52 Constitutional: Yes: Anxious Eyes: Yes: Conjunctiva Clear HENT: Yes: Atraumatic, Normocephalic Neck: No: Lymphadenopathy Cardiovascular: Yes: Regular Rate and Rhythm, Murmur Respiratory: Yes: CTA Bilaterally Gastrointestinal: Yes: Normal Bowel Sounds, Soft Musculoskeletal: Yes: Back Pain Integumentary: Yes: Other (track carr bilateral arms) Neurological: Yes: Alert, Oriented Psychiatric: Yes: Agitated Labs: CBC, BMP 08/26/19 00:06 08/26/19 00:06 Imaging - Results Chest X-ray: Report Reviewed, Image Reviewed (negative for acute processes) Ultrasound: Report Reviewed (abdominal U/S + mild splenomegaly and contracted gallbladder, - hydronephrosis or acute renal processes) EKG: Report Reviewed, Image Reviewed (normal QTc) Other: Report Reviewed (echocardiogram: EF 70%, mild MR and TR, no vegetations noted) Assessment/Plan Ms. Chowdhury is a 49 y/o female with HIV (diagnosed 2012 and never treated), and hepatitis C (untreated), and polysubstance use in methadone program (cocaine , IV heroin, BZD, nicotine, and alcohol) who presents with diarrhea x1 month and suprapubic pain x1 day. She was febrile at 103.7 at presentation from [facility] for detox. #simple UTI vs pyelonephritis UA + blood, nitrite, leuk esterase, >4k bacteria, 252 RBC, 170 WBC. Abd U/S mild splenomegaly with no evidence of hydronephrosis. -Vancomycin 1g Q12H -Ceftriaxone 2g Q12H -urine cx pending #fever Febrile at presentation 103.7. Echo negative for vegetations, has normal EF and mild MR and TR. -abx -blood cx pending #HIV Diagnosed in 2012. Untreated but pt is open to possible out pt treatment. Uncertain of CD4 count because pt refused morning labs. -will speak to pt again about obtaining labs, including CD4 -will give prophylactic abx if CD4 count is low #hepatitis C Untreated -treatment was offered but pt refused
[2019-08-26] MEDS: chlordiazePOXIDE HCL 25 MG CAPSULE PO SCH ×2 (12:55→20:21)
--- NOTE | 2019-08-26 12:59 | PN ---
Teaching Attending Note Name of Resident: Diana Davis ATTENDING PHYSICIAN STATEMENT I saw and evaluated the patient. I reviewed the resident's note and discussed the case with the resident. I agree with the resident's findings and plan as documented. SUBJECTIVE: SHE AHS ABD PAIN, has no SOB or palpitations or CP . has no flank pain. . she reports taking last does of cocaine and heroin 2 days ago. no diarrhea , no sore throat, no cough or sputum production OBJECTIVE: NAD, awake, alert, cooperative , dry MM, no thrush, congested oropharynx but no exudate CV: RRR, 3/6 SM LLSB , and weaker at RUSB and apex with no radiation to the axilla or the carotids Lungs: CTAB Abd: soft, ND, TTP in all quadrants. , NL BS . R CVA tenderness Ext : no edema or erythema, no rash. Lymphatic system: enlarged lymph nodes in b/l axillary areas ( one on each side ) and one Lymph node in R groin . Breast exam : small breasts, no discharge, no nodules felt, no skin changes ASSESSMENT AND PLAN: 49 y/o lady with h/o Untreated HIV, Untreated Hep C, and polysubstance abuse ( heroin, cocaine, ETOH) who presented to [facility] fro detox and was found to have fever so she was sent here. 1- Fever: likely source of infection is UTI/R pyelonephritis. Blood stream infection can't be r/o given drug abuse. has TR murmur on exam . Has lymphadenopathy ---> lymphoma in DDx - follow blood cx - Echo to r/o endocarditis - d/w ID : likely to do ceftriaxone and vanco for now - follow urine cx. - renal US with no abscess 2- Drug abuse: - Heroin: cont her home dose methadone. - ETOH: start Librium protocol - Cocaine: watch 3- Lymphadenopathy: B/l Axillary and R groin. Unclear etiology, but definitely with her HIV hx ,lymphoma needs to be r/o . - She was offered excisional Bx, but she declined. She understands this could be cancer 4- H/o HIV: she refused blood work for CD4 and viral load 6- Microcytic anemia: suspect iron def form nutritional def or slow GI bleed - iron studies pending - OB in stool - B12 , folate - further w/u as out pt 7-Thrombocytopenia: could be due to the splenomegaly form liver disease. or frm BM suppression from alcohol DVT Px: Heparin SQ.
--- NOTE | 2019-08-26 15:15 | PN ---
Teaching Attending Note Name of Resident: Zahra Aguirre ATTENDING PHYSICIAN STATEMENT I saw and evaluated the patient. I reviewed the resident's note and discussed the case with the resident. I agree with the resident's findings and plan as documented. SUBJECTIVE: OBJECTIVE: ASSESSMENT AND PLAN: UTI R/O PYELONEPHRITIS ACTIVE IDU ? ENDOCARDITIS HIV+ ? AIDS HCV+ POLYSUBSTANCE USE AWAIT C/S EMPIRIC CEFTRIAXONE/ VANCO CHECK RENAL SONO ECHO CD4 COUNT PT DECLINES ART
--- NOTE | 2019-08-26 15:39 | PN ---
Physical Exam: SUBJECTIVE: Patient seen and examined 49 y/o F, pmh of HIV+ not on medication (last check up 2 years ago), Hep C + not on medication, polysubstance abuse (cocaine, IV heroin, xanax, nicotine, alcohol) was sent from [facility] for lower abdominal pain accompanied non- bloody diarrhea and high grade fever (103.7 F) is admitted for complicated UTI. Currently, pt c/o of myalgia and pain in her joints. Pt appears to be withdrawing. Pt c/o of pain overnight but no other issues. Admits to myalgia, dysuria and suprapubic pain. Denies n/v/sob, numbness or tingling, blood in stool. OBJECTIVE: Last Vital Signs Temp Pulse Resp BP Pulse Ox 98.7 F 61 20 131/74 99 08/26/19 10:00 08/26/19 10:00 08/26/19 10:00 08/26/19 10:00 08/26/19 03:52 GENERAL: Awake, alert, and fully oriented, in no acute distress. HEAD: No signs of trauma, AT/NC EYES: EOMI, sclera anicteric, conjunctiva clear, PERRLA ENT: poor dentition, dry mucosa NECK: No LAD, no carotid bruit, supple LUNGS: clear to auscultation bilaterally, no wheezes, rales or ronchi, no crackles HEART: Regular rate and rhythm, normal S1 and S2, Tricuspid Murmur can be appreciated, rubs or gallops. Breast: prominent Lymph nodes palpable under the armpit b/l. Breast exam normal ABDOMEN: Soft, slight diffuse tenderness more pronounced in suprapubic region. No guarding, no rebound. POSITIVE CVA TENDERNESS Left> Right Groin: Palpable Lymph nodes on the right groin EXTREMITIES: Normal inspection, Normal range of motion, no edema. No clubbing or cyanosis. NEUROLOGICAL: Cranial nerves II through XII grossly intact. SKIN: warm, multiple track carr b/l upper extremities Laboratory Results - last 24 hr CBC,CMP WBC 6.5 K/mm3 (4.0-10.0) 08/26/19 00:06 RBC 3.72 M/mm3 (3.60-5.2) 08/26/19 00:06 Hgb 9.8 GM/dL (10.7-15.3) L 11/05/19 00:06 Hct 29.2 % (32.4-45.2) L D 08/26/19 00:06 MCV 78.5 fl (80-96) L 08/26/19 00:06 MCH 26.3 pg (25.7-33.7) 08/26/19 00:06 MCHC 33.5 g/dl (32.0-36.0) 08/26/19 00:06 RDW 13.9 % (11.6-15.6) 08/26/19 00:06 Plt Count 111 K/MM3 (134-434) L 08/26/19 00:06 MPV 12.4 fl (7.5-11.1) H 08/26/19 00:06 Absolute Neuts (auto) 4.4 K/mm3 (1.5-8.0) 08/26/19 00:06 Neutrophils % 67.9 % (42.8-82.8) 08/26/19 00:06 Neutrophils % (Manual) 56.6 % (42.8-82.8) 08/26/19 00:06 Band Neutrophils % 15.1 % 08/26/19 00:06 Lymphocytes % 21.0 % (8-40) 08/26/19 00:06 Lymphocytes % (Manual) 19.2 % (8-40) 08/26/19 00:06 Monocytes % 9.8 % (3.8-10.2) 08/26/19 00:06 Monocytes % (Manual) 6 % (3.8-10.2) 08/26/19 00:06 Eosinophils % 0.8 % (0-4.5) 08/26/19 00:06 Eosinophils % (Manual) 0.0 % (0-4.5) 08/26/19 00:06 Basophils % 0.5 % (0-2.0) 08/26/19 00:06 Basophils % (Manual) 0.0 % (0-2.0) 08/26/19 00:06 Myelocytes % (Man) 1 % (0-2) 08/26/19 00:06 Promyelocytes % (Man) 0 % (0-2) 08/26/19 00:06 Blast Cells % (Manual) 0 % (0-0) 08/26/19 00:06 Nucleated RBC % 0 % (0-0) 08/26/19 00:06 Metamyelocytes 0 % (0-2) 08/26/19 00:06 Hypochromia 0 08/26/19 00:06 Platelet Estimate Decreased 08/26/19 00:06 Platelet Comment No clumping noted 08/26/19 00:06 Polychromasia 0 08/26/19 00:06 Poikilocytosis 1+ 08/26/19 00:06 Anisocytosis 2+ 08/26/19 00:06 Microcytosis 2+ 08/26/19 00:06 Macrocytosis 0 08/26/19 00:06 Sodium 136 mmol/L (136-145) 08/26/19 00:06 Potassium 4.0 mmol/L (3.5-5.1) 08/26/19 00:06 Chloride 104 mmol/L (98-107) 08/26/19 00:06 Carbon Dioxide 26 mmol/L (21-32) 08/26/19 00:06 Anion Gap 7 MMOL/L (8-16) L 08/26/19 00:06 BUN 12.5 mg/dL (7-18) 08/26/19 00:06 Creatinine 1.0 mg/dL (0.55-1.3) 08/26/19 00:06 Est GFR (CKD-EPI)AfAm 77.15 08/26/19 00:06 Est GFR (CKD-EPI)NonAf 66.57 08/26/19 00:06 Random Glucose 129 mg/dL (74-106) H 08/26/19 00:06 Lactic Acid 1.5 mmol/L (0.4-2.0) 08/26/19 00:06 Calcium 7.8 mg/dL (8.5-10.1) L 08/26/19 00:06 Total Bilirubin 0.4 mg/dL (0.2-1) 08/26/19 00:06 AST 27 U/L (15-37) 08/26/19 00:06 ALT 16 U/L (13-61) 08/26/19 00:06 Alkaline Phosphatase 81 U/L (45-117) 08/26/19 00:06 Troponin I < 0.02 ng/ml (0.00-0.05) 08/26/19 00:06 Total Protein 7.3 g/dl (6.4-8.2) 08/26/19 00:06 Albumin 2.8 g/dl (3.4-5.0) L 08/26/19 00:06 Active Medications Current Medications Acetaminophen (Tylenol -) 650 mg PO Q4H PRN PRN Reason: PAIN LEVEL 1-5 Chlordiazepoxide HCl (Librium -) 10 mg PO Q12H PRN PRN Reason: Signs/symptoms of Withdrawal Stop: 08/29/19 23:59 Chlordiazepoxide HCl (Librium -) 25 mg PO Q8H [facility] Stop: 08/27/19 21:01 Last Admin: 08/26/19 12:55 Dose: 25 mg Chlordiazepoxide HCl (Librium -) 15 mg PO Q8H [facility] Stop: 08/28/19 21:01 Chlordiazepoxide HCl (Librium -) 10 mg PO Q8H [facility] Stop: 08/29/19 21:01 Chlordiazepoxide HCl (Librium -) 10 mg PO ONCE ONE Stop: 08/30/19 05:01 Chlordiazepoxide HCl (Librium -) 10 mg PO Q8H PRN PRN Reason: Signs/symptoms of Withdrawal Stop: 08/28/19 23:59 Folic Acid (Folic Acid -) 1 mg PO DAILY [facility] Last Admin: 08/26/19 11:14 Dose: 1 mg Heparin Sodium (Porcine) (Heparin -) 5,000 unit SQ TID [facility] Last Admin: 08/26/19 06:21 Dose: Not Given Sodium Chloride (Normal Saline -) 2,000 mls @ 42 mls/hr IV ASDIR [facility] Last Admin: 08/26/19 00:28 Dose: 42 mls/hr Ceftriaxone Sodium 2 gm/ (Dextrose) 100 mls @ 200 mls/hr IVPB BID [facility]; Protocol Vancomycin HCl (Vancomycin (Pre-Docked)) 1,000 mg in 250 mls @ 166.667 mls/hr IVPB Q12H [facility]; Protocol Methadone HCl 80 mg/ Methadone (HCl 20 mg) 100 mg PO DAILY@0600 [facility] Last Admin: 08/26/19 11:14 Dose: 100 mg Multivitamins/Minerals/Vitamin C (Tab-A-Vit -) 1 tab PO DAILY [facility] Last Admin: 08/26/19 11:14 Dose: 1 tab Nicotine (Nicoderm Patch -) 14 mg TD DAILY [facility] Last Admin: 08/26/19 11:14 Dose: Not Given Thiamine HCl (Vitamin B1 -) 100 mg PO DAILY [facility] Last Admin: 08/26/19 11:14 Dose: 100 mg Home Medications Medication Instructions Recorded NK [No Known Home Medication] 10/24/18 ASSESSMENT/PLAN: 49 y/o F, pmh of HIV+ not on medication (last check up 2 years ago), Hep C + not on medication, polysubstance abuse (cocaine, IV heroin, xanax, nicotine, alcohol) was sent from [facility] for lower abdominal pain accompanied non- bloody diarrhea and high grade fever (103.7 F) is admitted for complicated UTI #Fever 2/2 UTI/ Pyelonephritis. r/o infective endocarditis UCx and BCx- f/u ID consult Dr Solorzano- recom Vanc/Ceftriaxone Renal US with no abscess Abd U/S: contracted Gallbladder, mild splenomegaly Echo- no vegetations visible, EF normal F/u ESR and CRP #HIV Pt refused blood work- no CD4 count or viral load available to direct tx Currently not on HAART tx #Hepatitis C Pt refused blood work stool culture, O& P,WBC if diarrhea recurs Obtain medical records from patient's HIV physician B/l Axillary and R groin likely 2/2 to HIV but cannot r/o lymphoma- f/u Pt was offered Bx, but pt refused. She understands this could be cancer but still refused #Thrombocytopenia/ Microcytic anemia likely 2/2 HIV, hepatitis C, iron def form nutritional def or slow GI bleed Stool for fecal occult blood- f/u Ferritin, iron studies, retic count Vitamin B12 and folate Iron studies pending- pt refused blood work Consider outpt f/u #Polysubstance abuse Librium protocoal Nicotine patch Methadone as needed if acute withdrawal from opiates. 100 of methadone as per confirmed from her [facility]. #FEN regular diet #DVT hep subQ Dispo: f/u Cx, continue to request blood draw, monitor vitals, pt declined Blood draw, will try again in the am Visit type - Emergency Visit Emergency Visit: Yes ED Registration Date: 08/26/19 Care time: The patient presented to the Emergency Department on the above date and was hospitalized for further evaluation of their emergent condition. - New Patient This patient is new to me today: Yes Date on this admission: 08/27/19 - Critical Care Critical Care patient: No - Discharge Referral Referred to [facility] Med P.C.: No ATTENDING PHYSICIAN STATEMENT I saw and evaluated the patient. I reviewed the resident's note and discussed the case with the resident. I agree with the resident's findings and plan as documented. SUBJECTIVE: OBJECTIVE: ASSESSMENT AND PLAN:
[2019-08-26] MEDS ORDERED: PT OWN MED DRAWER 7, Y5N ONE (15:49)
[2019-08-26] MEDS: VANCOMYCIN 1 GRAM (PRE-DOCKED) 1,000 MG/250 ML BAG IVPB SCH (15:54)
[2019-08-26] MEDS ORDERED: IBUPROFEN 400 MG TABLET (FP) PO ONE (20:56)
[2019-08-26] MEDS ORDERED: DEXTROSE 5%-WATER 100 ML IVPB ONE (21:07)
[2019-08-26] MEDS: CEFTRIAXONE 2 GM in DEXTROSE 5%-WATER 100 ML IVPB SCH (21:22)
[2019-08-27] MEDS: SODIUM CHLORIDE 2,000 ML IV SCH ×2 (00:20→05:52)
[2019-08-27] MEDS: VANCOMYCIN 1 GRAM (PRE-DOCKED) 1,000 MG/250 ML BAG IVPB SCH ×2 (00:21→13:31)
[2019-08-27] MEDS: chlordiazePOXIDE HCL 25 MG CAPSULE PO SCH ×3 (04:08→21:06)
[2019-08-27] MEDS ORDERED: METHADONE HCL 10 MG TABLET ONE (05:43)
[2019-08-27] MEDS ORDERED: METHADONE HCL 40 MG DISPERSABLE TABLET ONE (05:43)
[2019-08-27] MEDS: HEPARIN NA (PORCINE) 5,000 UNITS/ML 1ML VIAL SQ SCH ×4 (05:53→21:15)
[2019-08-27] MEDS: METHADONE 80 MG, METHADONE 20 MG PO SCH (05:53)
[2019-08-27 08:17] LABS: BASO % 0.4 % (0-2.0); EOS % 4.5 % (0-4.5); HEMATOCRIT 27.6 % (32.4-45.2); HEMOGLOBIN 9.2 GM/dL (10.7-15.3); LYMPH % 30.2 % (8-40); MCH 26.2 pg (25.7-33.7); MCHC 33.5 g/dl (32.0-36.0); MEAN CELL VOLUME 78.1 fl (80-96); MEAN PLT VOLUME 12.3 fl (7.5-11.1); MONO % 9.6 % (3.8-10.2); NEUT % 55.3 % (42.8-82.8); PLATELET COUNT 103 K/MM3 (134-434); RBC 3.53 M/mm3 (3.60-5.2); RDW 14.2 % (11.6-15.6); WHITE BLOOD COUNT 2.8 K/mm3 (4.0-10.0)
[2019-08-27 08:59] LABS: ALBUMIN 2.4 g/dl (3.4-5.0); BILIRUBIN,TOTAL 0.2 mg/dL (0.2-1); BLOOD UREA NITROGEN 7.8 mg/dL (7-18); CALCIUM 7.8 mg/dL (8.5-10.1); CREATININE 0.7 mg/dL (0.55-1.3); POTASSIUM 3.5 mmol/L (3.5-5.1); TOT PROT 6.4 g/dl (6.4-8.2)
--- NOTE | 2019-08-27 09:22 | PN ---
Teaching Attending Note Name of Resident: José Bess ATTENDING PHYSICIAN STATEMENT I saw and evaluated the patient. I reviewed the resident's note and discussed the case with the resident. I agree with the resident's findings and plan as documented. SUBJECTIVE: Patient is a 49yo female presented with abdominal pain has no SOB or palpitations or CP . has no flank pain. she reports taking last does of cocaine and heroin 3 days ago. no diarrhea , no sore throat, no cough or sputum production Vital Signs Temperature 97.8 F 08/27/19 06:00 Pulse Rate 56 L 08/27/19 06:00 Respiratory Rate 20 08/27/19 06:00 Blood Pressure 106/62 08/27/19 06:00 O2 Sat by Pulse Oximetry (%) 98 08/26/19 21:00 GENERAL: The patient is awake, alert, and fully oriented, in no acute distress. HEAD: Normal with no signs of trauma. EYES: PERRL, extraocular movements intact, sclera anicteric, conjunctiva clear. ENT: Ears normal, oropharynx clear without exudates, moist mucous membranes. NECK: Trachea midline, full range of motion, supple. LUNGS: Breath sounds equal, clear to auscultation bilaterally, no wheezes, no crackles, no accessory muscle use. HEART: Regular rate and rhythm, S1, S2 positive, 3/6 SM LLSB, no rub or gallop. ABDOMEN: Soft, nontender, nondistended, normoactive bowel sounds, no guarding, no rebound, no hepatosplenomegaly, no masses. EXTREMITIES: 2+ pulses, warm, well-perfused, no edema. NEUROLOGICAL: Cranial nerves II through XII grossly intact. Normal speech, gait not observed. PSYCH: Normal mood, normal affect. SKIN: Warm, dry, normal turgor, no rashes or lesions noted Lymphatic system: enlarged lymph nodes in b/l axillary areas , on each side, and one Lymph node in R groin . WBC 2.8 K/mm3 (4.0-10.0) L 08/27/19 07:15 RBC 3.53 M/mm3 (3.60-5.2) L 08/27/19 07:15 Hgb 9.2 GM/dL (10.7-15.3) L 08/27/19 07:15 Hct 27.6 % (32.4-45.2) L 08/27/19 07:15 MCV 78.1 fl (80-96) L 08/27/19 07:15 MCHC 33.5 g/dl (32.0-36.0) 08/27/19 07:15 RDW 14.2 % (11.6-15.6) 08/27/19 07:15 Plt Count 103 K/MM3 (134-434) L 08/27/19 07:15 MPV 12.3 fl (7.5-11.1) H 08/27/19 07:15 CMP Sodium 141 mmol/L (136-145) 08/27/19 07:15 Potassium 3.5 mmol/L (3.5-5.1) 08/27/19 07:15 Chloride 111 mmol/L (98-107) H 08/27/19 07:15 Carbon Dioxide 24 mmol/L (21-32) 08/27/19 07:15 Anion Gap 6 MMOL/L (8-16) L 08/27/19 07:15 BUN 7.8 mg/dL (7-18) 08/27/19 07:15 Creatinine 0.7 mg/dL (0.55-1.3) 08/27/19 07:15 Random Glucose 122 mg/dL (74-106) H 08/27/19 07:15 Calcium 7.8 mg/dL (8.5-10.1) L 08/27/19 07:15 Total Bilirubin 0.2 mg/dL (0.2-1) 08/27/19 07:15 AST 16 U/L (15-37) 08/27/19 07:15 ALT 16 U/L (13-61) 08/27/19 07:15 Alkaline Phosphatase 79 U/L (45-117) 08/27/19 07:15 Total Protein 6.4 g/dl (6.4-8.2) 08/27/19 07:15 Albumin 2.4 g/dl (3.4-5.0) L 08/27/19 07:15 CARDIAC ENZYMES Troponin I < 0.02 ng/ml (0.00-0.05) 08/26/19 00:06 Current Medications Generic Name Dose Route Start Last Admin Trade Name Freq PRN Reason Stop Dose Admin Acetaminophen 650 mg 08/26/19 05:37 Tylenol - PO Q4H PRN PAIN LEVEL 1-5 Chlordiazepoxide HCl 10 mg 08/29/19 00:00 Librium - PO 08/29/19 23:59 Q12H PRN Signs/symptoms of Withdrawal Chlordiazepoxide HCl 25 mg 08/26/19 13:00 08/27/19 04:08 Librium - PO 08/27/19 21:01 25 mg Q8H [facility] Administration Chlordiazepoxide HCl 15 mg 08/28/19 05:00 Librium - PO 08/28/19 21:01 Q8H [facility] Chlordiazepoxide HCl 10 mg 08/29/19 05:00 Librium - PO 08/29/19 21:01 Q8H [facility] Chlordiazepoxide HCl 10 mg 08/30/19 05:00 Librium - PO 08/30/19 05:01 ONCE ONE Chlordiazepoxide HCl 10 mg 08/26/19 10:38 Librium - PO 08/28/19 23:59 Q8H PRN Signs/symptoms of Withdrawal Folic Acid 1 mg 08/26/19 10:00 08/26/19 11:14 Folic Acid - PO 1 mg DAILY [facility] Administration Heparin Sodium (Porcine) 5,000 unit 08/26/19 06:00 08/27/19 05:53 Heparin - SQ 5,000 unit TID [facility] Administration Sodium Chloride 2,000 mls @ 42 mls/hr 08/25/19 23:45 08/27/19 05:52 Normal Saline - IV 42 mls/hr ASDIR [facility] Administration Ceftriaxone Sodium 2 gm/ 100 mls @ 200 mls/hr 08/26/19 22:00 08/26/19 21:22 Dextrose IVPB 200 mls/hr BID [facility] Administration Protocol Vancomycin HCl 1,000 mg in 250 mls @ 166.667 mls/hr 08/26/19 13:00 08/27/19 00:21 Vancomycin (Pre-Docked) IVPB 166.667 mls/hr Q12H [facility] Administration Protocol Methadone HCl 80 mg/ Methadone 100 mg 08/26/19 10:45 08/27/19 05:53 HCl 20 mg PO 100 mg DAILY@0600 [facility] Administration Multivitamins/Minerals/Vitamin C 1 tab 08/26/19 10:00 08/26/19 11:14 Tab-A-Vit - PO 1 tab DAILY [facility] Administration Nicotine 14 mg 08/26/19 10:00 08/26/19 11:14 Nicoderm Patch - TD Not Given DAILY [facility] Thiamine HCl 100 mg 08/26/19 10:00 08/26/19 11:14 Vitamin B1 - PO 100 mg DAILY [facility] Administration Home Medications Medication Instructions Recorded NK [No Known Home Medication] 10/24/18 Urine Test Results Urine Color [place] 08/25/19 23:39 Urine Appearance Cloudy 08/25/19 23:39 Urine pH 6.0 (5.0-8.0) 08/25/19 23:39 Ur Specific [place] 1.011 (1.010-1.035) 08/25/19 23:39 Urine Protein 2+ (NEGATIVE) H 08/25/19 23:39 Urine Glucose (UA) Negative (NEGATIVE) 08/25/19 23:39 Urine Ketones Negative (NEGATIVE) 08/25/19 23:39 Urine Blood 3+ (NEGATIVE) H 08/25/19 23:39 Urine Nitrite Positive (NEGATIVE) H 08/25/19 23:39 Urine Bilirubin Negative (NEGATIVE) 08/25/19 23:39 Ur Leukocyte Esterase 3+ (NEGATIVE) H 08/25/19 23:39 08/25/19 23:39 Urine - Urine Clean Catch Urine Culture - Preliminary Lactose Fermenting Neg Bacilli Pending Organism 08/26/19 00:06 Blood - Peripheral Venous Blood Culture - Preliminary NO GROWTH OBTAINED AFTER 24 HOURS, INCUBATION TO CONTINUE FOR 4 DAYS. 08/26/19 00:06 Blood - Peripheral Venous Blood Culture - Preliminary NO GROWTH OBTAINED AFTER 24 HOURS, INCUBATION TO CONTINUE FOR 4 DAYS. ASSESSMENT AND PLAN: Patient is a 49yo female with Pmhx of Untreated HIV, Untreated Hep C, and polysubstance abuse ( heroin, cocaine, ETOH) who presented to [facility] for detox and was found to have fever so she was sent to [facility] for further care. # Fever: likely source of infection is UTI/R pyelonephritis. has TR murmur on exam, has lymphadenopathy ---> lymphoma in DDx - Echo to r/o endocarditis, EF is 70%, continue ceftriaxone and vanco for now , follow urine cx., renal US with no abscess. ID consult . # Polysubtance abuse: Heroin/ cont her home dose methadone/ ETOH: start Librium protocol , Cocaine: watch # Lymphadenopathy: B/l Axillary and R groin. most likely due to Her HIV , can't r/o lymphoma - She was offered excisional Bx, but she declined. She understands this could be cancer # H/o HIV: agreed for blood work today # Microcytic anemia: suspect iron def form nutritional def or slow GI bleed , iron panel, b12, fa level #Thrombocytopenia: could be due to the splenomegaly form liver disease. or from BM suppression from alcohol DVT Px: Heparin SQ, patient has borderline platelets , monitor
[2019-08-27] MEDS ORDERED: DEXTROSE 5%-WATER 100 ML IVPB ONE ×2 (10:42→20:58)
[2019-08-27] MEDS: MULTIVITAMINS (DAILY MVI) TABLET (FP) PO SCH (10:48)
[2019-08-27] MEDS: NICOTINE 14 MG/24 HOURS TOPICAL PATCH TD SCH (10:48)
[2019-08-27] MEDS: THIAMINE HCL 100 MG TABLET (FP) PO SCH (10:49)
[2019-08-27] MEDS: FOLIC ACID 1 MG TABLET (FP) PO SCH (10:49)
[2019-08-27] MEDS: CEFTRIAXONE 2 GM in DEXTROSE 5%-WATER 100 ML IVPB SCH ×2 (10:55→21:08)
--- NOTE | 2019-08-27 13:31 | PN ---
Physical Exam: SUBJECTIVE: Patient seen and examined 49 y/o F, pmh of HIV+ not on medication (last check up 2 years ago), Hep C + not on medication, polysubstance abuse (cocaine, IV heroin, xanax, nicotine, alcohol) was sent from [facility] for lower abdominal pain accompanied non- bloody diarrhea and high grade fever (103.7 F) is admitted for complicated UTI. Currently, pt's myalgia has improved. Pt feels much better. No longer withdrawing. No overnight issues. Admits to moderate suprapubic pain. Denies n/v /sob, numbness or tingling, blood in stool. OBJECTIVE: Vital Signs Last Vital Signs Temp Pulse Resp BP Pulse Ox 98.1 F 83 20 110/63 98 08/27/19 10:38 08/27/19 10:38 08/27/19 10:38 08/27/19 10:38 08/26/19 21:00 GENERAL: Awake, alert, and fully oriented, in no acute distress. HEAD: No signs of trauma, AT/NC EYES: EOMI, sclera anicteric, conjunctiva clear, PERRLA ENT: poor dentition, dry mucosa NECK: No LAD, no carotid bruit, supple LUNGS: clear to auscultation bilaterally, no wheezes, rales or ronchi, no crackles HEART: Regular rate and rhythm, normal S1 and S2, Tricuspid Murmur can be appreciated, rubs or gallops. Breast: prominent Lymph nodes palpable under the armpit b/l. Breast exam normal ABDOMEN: Soft, slight diffuse tenderness more pronounced in suprapubic region. No guarding, no rebound. POSITIVE CVA TENDERNESS Left> Right Groin: Palpable Lymph nodes on the right groin EXTREMITIES: Normal inspection, Normal range of motion, no edema. No clubbing or cyanosis. NEUROLOGICAL: Cranial nerves II through XII grossly intact. SKIN: warm, multiple track carr b/l upper extremities Laboratory Results - last 24 hr WBC 2.8 K/mm3 (4.0-10.0) L 08/27/19 07:15 RBC 3.53 M/mm3 (3.60-5.2) L 08/27/19 07:15 Hgb 9.2 GM/dL (10.7-15.3) L 08/27/19 07:15 Hct 27.6 % (32.4-45.2) L 08/27/19 07:15 MCV 78.1 fl (80-96) L 08/27/19 07:15 MCH 26.2 pg (25.7-33.7) 08/27/19 07:15 MCHC 33.5 g/dl (32.0-36.0) 08/27/19 07:15 RDW 14.2 % (11.6-15.6) 08/27/19 07:15 Plt Count 103 K/MM3 (134-434) L 08/27/19 07:15 MPV 12.3 fl (7.5-11.1) H 08/27/19 07:15 Absolute Neuts (auto) 1.6 K/mm3 (1.5-8.0) 08/27/19 07:15 Neutrophils % 55.3 % (42.8-82.8) 08/27/19 07:15 Neutrophils % (Manual) 56.6 % (42.8-82.8) 08/26/19 00:06 Band Neutrophils % 15.1 % 08/26/19 00:06 Lymphocytes % 30.2 % (8-40) D 08/27/19 07:15 Lymphocytes % (Manual) 19.2 % (8-40) 08/26/19 00:06 Monocytes % 9.6 % (3.8-10.2) 08/27/19 07:15 Monocytes % (Manual) 6 % (3.8-10.2) 08/26/19 00:06 Eosinophils % 4.5 % (0-4.5) D 08/27/19 07:15 Eosinophils % (Manual) 0.0 % (0-4.5) 08/26/19 00:06 Basophils % 0.4 % (0-2.0) 08/27/19 07:15 Basophils % (Manual) 0.0 % (0-2.0) 08/26/19 00:06 Myelocytes % (Man) 1 % (0-2) 08/26/19 00:06 Promyelocytes % (Man) 0 % (0-2) 08/26/19 00:06 Blast Cells % (Manual) 0 % (0-0) 08/26/19 00:06 Nucleated RBC % 0 % (0-0) 08/27/19 07:15 Metamyelocytes 0 % (0-2) 08/26/19 00:06 Hypochromia 0 08/26/19 00:06 Platelet Estimate Decreased 08/26/19 00:06 Platelet Comment No clumping noted 08/26/19 00:06 Polychromasia 0 08/26/19 00:06 Poikilocytosis 1+ 08/26/19 00:06 Anisocytosis 2+ 08/26/19 00:06 Microcytosis 2+ 08/26/19 00:06 Macrocytosis 0 08/26/19 00:06 Sodium 141 mmol/L (136-145) 08/27/19 07:15 Potassium 3.5 mmol/L (3.5-5.1) 08/27/19 07:15 Chloride 111 mmol/L (98-107) H 08/27/19 07:15 Carbon Dioxide 24 mmol/L (21-32) 08/27/19 07:15 Anion Gap 6 MMOL/L (8-16) L 08/27/19 07:15 BUN 7.8 mg/dL (7-18) 08/27/19 07:15 Creatinine 0.7 mg/dL (0.55-1.3) 08/27/19 07:15 Est GFR (CKD-EPI)AfAm 118.74 08/27/19 07:15 Est GFR (CKD-EPI)NonAf 102.45 08/27/19 07:15 Random Glucose 122 mg/dL (74-106) H 08/27/19 07:15 Lactic Acid 1.5 mmol/L (0.4-2.0) 08/26/19 00:06 Calcium 7.8 mg/dL (8.5-10.1) L 08/27/19 07:15 Total Bilirubin 0.2 mg/dL (0.2-1) 08/27/19 07:15 AST 16 U/L (15-37) 08/27/19 07:15 ALT 16 U/L (13-61) 08/27/19 07:15 Alkaline Phosphatase 79 U/L (45-117) 08/27/19 07:15 Troponin I < 0.02 ng/ml (0.00-0.05) 08/26/19 00:06 Total Protein 6.4 g/dl (6.4-8.2) 08/27/19 07:15 Albumin 2.4 g/dl (3.4-5.0) L 08/27/19 07:15 Active Medications Current Medications Acetaminophen (Tylenol -) 650 mg PO Q4H PRN PRN Reason: PAIN LEVEL 1-5 Chlordiazepoxide HCl (Librium -) 10 mg PO Q12H PRN PRN Reason: Signs/symptoms of Withdrawal Stop: 08/29/19 23:59 Chlordiazepoxide HCl (Librium -) 25 mg PO Q8H [facility] Stop: 08/27/19 21:01 Last Admin: 08/27/19 04:08 Dose: 25 mg Chlordiazepoxide HCl (Librium -) 15 mg PO Q8H [facility] Stop: 08/28/19 21:01 Chlordiazepoxide HCl (Librium -) 10 mg PO Q8H [facility] Stop: 08/29/19 21:01 Chlordiazepoxide HCl (Librium -) 10 mg PO ONCE ONE Stop: 08/30/19 05:01 Chlordiazepoxide HCl (Librium -) 10 mg PO Q8H PRN PRN Reason: Signs/symptoms of Withdrawal Stop: 08/28/19 23:59 Folic Acid (Folic Acid -) 1 mg PO DAILY [facility] Last Admin: 08/27/19 10:49 Dose: 1 mg Heparin Sodium (Porcine) (Heparin -) 5,000 unit SQ TID [facility] Last Admin: 08/27/19 05:53 Dose: 5,000 unit Sodium Chloride (Normal Saline -) 2,000 mls @ 42 mls/hr IV ASDIR [facility] Last Admin: 08/27/19 05:52 Dose: 42 mls/hr Ceftriaxone Sodium 2 gm/ (Dextrose) 100 mls @ 200 mls/hr IVPB BID [facility]; Protocol Last Admin: 08/27/19 10:55 Dose: 200 mls/hr Vancomycin HCl (Vancomycin (Pre-Docked)) 1,000 mg in 250 mls @ 166.667 mls/hr IVPB Q12H [facility]; Protocol Last Admin: 08/27/19 00:21 Dose: 166.667 mls/hr Methadone HCl 80 mg/ Methadone (HCl 20 mg) 100 mg PO DAILY@0600 [facility] Last Admin: 08/27/19 05:53 Dose: 100 mg Multivitamins/Minerals/Vitamin C (Tab-A-Vit -) 1 tab PO DAILY [facility] Last Admin: 08/27/19 10:48 Dose: 1 tab Nicotine (Nicoderm Patch -) 14 mg TD DAILY [facility] Last Admin: 08/27/19 10:48 Dose: Not Given Thiamine HCl (Vitamin B1 -) 100 mg PO DAILY [facility] Last Admin: 08/27/19 10:49 Dose: 100 mg Home Medications Medication Instructions Recorded NK [No Known Home Medication] 10/24/18 Microbiology 08/25/19 23:39 Urine - Urine Clean Catch Urine Culture - Preliminary Lactose Fermenting Neg Bacilli Pending Organism 08/26/19 00:06 Blood - Peripheral Venous Blood Culture - Preliminary NO GROWTH OBTAINED AFTER 24 HOURS, INCUBATION TO CONTINUE FOR 4 DAYS. 08/26/19 00:06 Blood - Peripheral Venous Blood Culture - Preliminary NO GROWTH OBTAINED AFTER 24 HOURS, INCUBATION TO CONTINUE FOR 4 DAYS. ASSESSMENT/PLAN: 49 y/o F, pmh of HIV+ not on medication (last check up 2 years ago), Hep C + not on medication, polysubstance abuse (cocaine, IV heroin, xanax, nicotine, alcohol) was sent from [facility] for lower abdominal pain accompanied non- bloody diarrhea and high grade fever (103.7 F) is admitted for complicated UTI #Fever 2/2 UTI/ Pyelonephritis. r/o infective endocarditis UCx-Shows lactose fermenting negative bacilli BCx- no growth ID consult- recom Vanc/Ceftriaxone Renal US with no abscess Abd U/S: contracted Gallbladder, mild splenomegaly Echo- no vegetations visible, EF normal UA+ #HIV Pt allowed blood work- CD4 count or viral load sent- f/u Currently not on HAART tx- declines tx #Hepatitis C stool culture, O& P,WBC if diarrhea recurs Obtain medical records from patient's HIV physician B/l Axillary and R groin likely 2/2 to HIV but cannot r/o lymphoma- f/u Pt was offered Bx, but pt refused. She understands this could be cancer but still refused #Thrombocytopenia/ Microcytic anemia likely 2/2 HIV, hepatitis C, iron def form nutritional def or slow GI bleed Stool for fecal occult blood- f/u Ferritin, iron studies, retic count Vitamin B12 and folate Iron studies pending Consider outpt f/u #Polysubstance abuse Librium protocoal Nicotine patch 14 Methadone as needed if acute withdrawal from opiates. 100 of methadone as per confirmed from her [place] [facility]. #FEN regular diet #DVT hep subQ Dispo: f/u blood work, monitor vitals, cont librium protocol Visit type Visit type - Emergency Visit Emergency Visit: Yes ED Registration Date: 08/26/19 Care time: The patient presented to the Emergency Department on the above date and was hospitalized for further evaluation of their emergent condition. - New Patient This patient is new to me today: Yes Date on this admission: 08/28/19 - Critical Care Critical Care patient: No - Discharge Referral Referred to [facility] No ATTENDING PHYSICIAN STATEMENT I saw and evaluated the patient. I reviewed the resident's note and discussed the case with the resident. I agree with the resident's findings and plan as documented. SUBJECTIVE: OBJECTIVE: ASSESSMENT AND PLAN:
--- NOTE | 2019-08-27 19:05 | PN ---
Physical Exam: SUBJECTIVE: Patient seen and examined. She reports mild lower abdominal pain. OBJECTIVE: Vital Signs Period Temp Pulse Resp BP Sys/López Pulse Ox Last 24 Hr 97.5 F-100.4 F 53-84 18-20 92-120/58-69 98 GENERAL: The patient is awake, alert, and fully oriented, in no acute distress. HEAD: Normal with no signs of trauma. EYES: PERRL, extraocular movements intact ENT: Ears normal, nares patent, moist mucous membranes. NECK: Trachea midline, full range of motion, supple. LUNGS: Clear to auscultation bilaterally HEART: Regular rate and rhythm, no murmur ABDOMEN: Soft, nontender, nondistended, normoactive bowel sounds EXTREMITIES: 2+ pulses, warm, well-perfused, no edema. NEUROLOGICAL: Cranial nerves II through XII grossly intact. PSYCH: Normal mood, normal affect. SKIN: Warm, dry, normal turgor, no rashes or lesions noted Laboratory Results - last 24 hr 08/27/19 08/27/19 08/27/19 07:15 07:15 07:15 WBC 2.8 L RBC 3.53 L Hgb 9.2 L Hct 27.6 L MCV 78.1 L MCH 26.2 MCHC 33.5 RDW 14.2 Plt Count 103 L MPV 12.3 H Absolute Neuts (auto) 1.6 Neutrophils % 55.3 Lymphocytes % 30.2 D Monocytes % 9.6 Eosinophils % 4.5 D Basophils % 0.4 Nucleated RBC % 0 Sodium 141 Potassium 3.5 Chloride 111 H Carbon Dioxide 24 Anion Gap 6 L BUN 7.8 Creatinine 0.7 Est GFR (CKD-EPI)AfAm 118.74 Est GFR (CKD-EPI)NonAf 102.45 Random Glucose 122 H Calcium 7.8 L Total Bilirubin 0.2 AST 16 ALT 16 Alkaline Phosphatase 79 Total Protein 6.4 Albumin 2.4 L HIV 1&2 Antibody Screen Preliminary positive A HIV P24 Antigen Negative Active Medications Generic Name Dose Route Start Last Admin Trade Name Freq PRN Reason Stop Dose Admin Acetaminophen 650 mg 08/26/19 05:37 Tylenol - PO Q4H PRN PAIN LEVEL 1-5 Chlordiazepoxide HCl 10 mg 08/29/19 00:00 Librium - PO 08/29/19 23:59 Q12H PRN Signs/symptoms of Withdrawal Chlordiazepoxide HCl 25 mg 11/05/19 13:00 08/27/19 13:31 Librium - PO 08/27/19 21:01 25 mg Q8H CHARLY Administration Chlordiazepoxide HCl 15 mg 08/28/19 05:00 Librium - PO 08/28/19 21:01 Q8H CHARLY Chlordiazepoxide HCl 10 mg 08/29/19 05:00 Librium - PO 08/29/19 21:01 Q8H CHARLY Chlordiazepoxide HCl 10 mg 08/30/19 05:00 Librium - PO 08/30/19 05:01 ONCE ONE Chlordiazepoxide HCl 10 mg 08/26/19 10:38 Librium - PO 08/28/19 23:59 Q8H PRN Signs/symptoms of Withdrawal Folic Acid 1 mg 08/26/19 10:00 08/27/19 10:49 Folic Acid - PO 1 mg DAILY CHARLY Administration Heparin Sodium (Porcine) 5,000 unit 08/26/19 06:00 08/27/19 14:17 Heparin - SQ 5,000 unit TID CHARLY Administration Sodium Chloride 2,000 mls @ 42 mls/hr 08/25/19 23:45 08/27/19 05:52 Normal Saline - IV 42 mls/hr ASDIR CHARLY Administration Ceftriaxone Sodium 2 gm/ 100 mls @ 200 mls/hr 08/26/19 22:00 08/27/19 10:55 Dextrose IVPB 200 mls/hr BID CHARLY Administration Protocol Vancomycin HCl 1,000 mg in 250 mls @ 166.667 mls/hr 08/26/19 13:00 08/27/19 13:31 Vancomycin (Pre-Docked) IVPB 166.667 mls/hr Q12H CHARLY Administration Protocol Methadone HCl 80 mg/ Methadone 100 mg 08/26/19 10:45 08/27/19 05:53 HCl 20 mg PO 100 mg DAILY@0600 CHARLY Administration Multivitamins/Minerals/Vitamin C 1 tab 08/26/19 10:00 08/27/19 10:48 Tab-A-Vit - PO 1 tab DAILY CHARLY Administration Nicotine 14 mg 08/26/19 10:00 08/27/19 10:48 Nicoderm Patch - TD Not Given DAILY [facility] Thiamine HCl 100 mg 08/26/19 10:00 08/27/19 10:49 Vitamin B1 - PO 100 mg DAILY CHARLY Administration ASSESSMENT/PLAN: Ms. Chowdhury is a 49 y/o female with HIV (diagnosed 2012 and never treated), and hepatitis C (untreated), and polysubstance use in methadone program (cocaine , IV heroin, BZD, nicotine, and alcohol) who presents with diarrhea x1 month and suprapubic pain x1 day. She was febrile at 103.7 at presentation from [facility] for detox. #simple UTI vs pyelonephritis UA + blood, nitrite, leuk esterase, >4k bacteria, 252 RBC, 170 WBC. Abd U/S mild splenomegaly with no evidence of hydronephrosis. -Vancomycin 1g Q12H -Ceftriaxone 2g Q12H -urine cx final pending- prelim lactose fermenting gram negative bacilli #fever Febrile at presentation 103.7. 24hour Tmax 100.4. Echo negative for vegetations , has normal EF and mild MR and TR. -abx -blood cx pending #HIV Diagnosed in 2012. Untreated but pt is open to possible out pt treatment. Pt has initially refused labs but is in agreement now. -f/u labs -start meds if needed following results and discussion with pt #hepatitis C Untreated -treatment was offered but pt refused Visit type - Emergency Visit Emergency Visit: Yes ED Registration Date: 08/26/19 Care time: The patient presented to the Emergency Department on the above date and was hospitalized for further evaluation of their emergent condition. - New Patient This patient is new to me today: No - Critical Care Critical Care patient: No ATTENDING PHYSICIAN STATEMENT I saw and evaluated the patient. I reviewed the resident's note and discussed the case with the resident. I agree with the resident's findings and plan as documented. SUBJECTIVE: OBJECTIVE: ASSESSMENT AND PLAN:
--- NOTE | 2019-08-27 21:08 | PN ---
Teaching Attending Note Name of Resident: Zahra Aguirre ATTENDING PHYSICIAN STATEMENT I saw and evaluated the patient. I reviewed the resident's note and discussed the case with the resident. I agree with the resident's findings and plan as documented. SUBJECTIVE: OBJECTIVE: ASSESSMENT AND PLAN:
[2019-08-27] MEDS ORDERED: FAMOTIDINE 10 MG TABLET PO ONE (22:39)
[2019-08-28] MEDS: VANCOMYCIN 1 GRAM (PRE-DOCKED) 1,000 MG/250 ML BAG IVPB SCH (00:03)
[2019-08-28] MEDS: SODIUM CHLORIDE 2,000 ML IV SCH (00:05)
[2019-08-28] MEDS ORDERED: METHADONE HCL 10 MG TABLET ONE (05:05)
[2019-08-28] MEDS ORDERED: METHADONE HCL 40 MG DISPERSABLE TABLET ONE (05:05)
[2019-08-28] MEDS: chlordiazePOXIDE 5 MG CAPSULE PO SCH ×3 (05:10→20:38)
[2019-08-28] MEDS: METHADONE 80 MG, METHADONE 20 MG PO SCH (05:10)
[2019-08-28] MEDS: HEPARIN NA (PORCINE) 5,000 UNITS/ML 1ML VIAL SQ SCH ×3 (05:11→22:08)
[2019-08-28 09:18] LABS: BASO % 0.4 % (0-2.0); EOS % 4.4 % (0-4.5); HEMATOCRIT 28.2 % (32.4-45.2); HEMOGLOBIN 9.3 GM/dL (10.7-15.3); LYMPH % 34.7 % (8-40); MCHC 33.1 g/dl (32.0-36.0); MEAN CELL VOLUME 78.4 fl (80-96); MEAN PLT VOLUME 11.8 fl (7.5-11.1); NEUT % 50.5 % (42.8-82.8); PLATELET COUNT 122 K/MM3 (134-434); RDW 13.8 % (11.6-15.6); WHITE BLOOD COUNT 2.7 K/mm3 (4.0-10.0)
--- NOTE | 2019-08-28 09:52 | PN ---
Teaching Attending Note Name of Resident: José Bess ATTENDING PHYSICIAN STATEMENT I saw and evaluated the patient. I reviewed the resident's note and discussed the case with the resident. I agree with the resident's findings and plan as documented. SUBJECTIVE: Patient is comfortable with no acute distress. Vital Signs Temperature 98.1 F 08/28/19 09:00 Pulse Rate 68 08/28/19 09:00 Respiratory Rate 18 08/28/19 09:00 Blood Pressure 123/74 08/28/19 09:00 O2 Sat by Pulse Oximetry (%) 97 08/28/19 09:00 GENERAL: The patient is awake, alert, and fully oriented, in no acute distress. HEAD: Normal with no signs of trauma. EYES: PERRL, extraocular movements intact, sclera anicteric, conjunctiva clear. ENT: Ears normal, oropharynx clear without exudates, moist mucous membranes. NECK: Trachea midline, full range of motion, supple. LUNGS: Breath sounds equal, clear to auscultation bilaterally, no wheezes, no crackles, no accessory muscle use. HEART: Regular rate and rhythm, S1, S2 positive, 3/6 SM LLSB, no rub or gallop. ABDOMEN: Soft, nontender, nondistended, normoactive bowel sounds, no guarding, no rebound, no hepatosplenomegaly, no masses. EXTREMITIES: 2+ pulses, warm, well-perfused, no edema. NEUROLOGICAL: Cranial nerves II through XII grossly intact. Normal speech, gait not observed. PSYCH: Normal mood, normal affect. SKIN: Warm, dry, normal turgor, no rashes or lesions noted Lymphatic system: enlarged lymph nodes in b/l axillary areas , on each side, and one Lymph node in R groin . CBCD WBC 2.7 K/mm3 (4.0-10.0) L 08/28/19 07:40 RBC 3.60 M/mm3 (3.60-5.2) 08/28/19 07:40 Hgb 9.3 GM/dL (10.7-15.3) L 08/28/19 07:40 Hct 28.2 % (32.4-45.2) L 08/28/19 07:40 MCV 78.4 fl (80-96) L 08/28/19 07:40 MCHC 33.1 g/dl (32.0-36.0) 08/28/19 07:40 RDW 13.8 % (11.6-15.6) 08/28/19 07:40 Plt Count 122 K/MM3 (134-434) L 08/28/19 07:40 MPV 11.8 fl (7.5-11.1) H 08/28/19 07:40 CMP Sodium 141 mmol/L (136-145) 08/27/19 07:15 Potassium 3.5 mmol/L (3.5-5.1) 08/27/19 07:15 Chloride 111 mmol/L (98-107) H 08/27/19 07:15 Carbon Dioxide 24 mmol/L (21-32) 08/27/19 07:15 Anion Gap 6 MMOL/L (8-16) L 08/27/19 07:15 BUN 7.8 mg/dL (7-18) 08/27/19 07:15 Creatinine 0.7 mg/dL (0.55-1.3) 08/27/19 07:15 Random Glucose 122 mg/dL (74-106) H 08/27/19 07:15 Calcium 7.8 mg/dL (8.5-10.1) L 08/27/19 07:15 Total Bilirubin 0.2 mg/dL (0.2-1) 08/27/19 07:15 AST 16 U/L (15-37) 08/27/19 07:15 ALT 16 U/L (13-61) 08/27/19 07:15 Alkaline Phosphatase 79 U/L (45-117) 08/27/19 07:15 Total Protein 6.4 g/dl (6.4-8.2) 08/27/19 07:15 Albumin 2.4 g/dl (3.4-5.0) L 08/27/19 07:15 CARDIAC ENZYMES Troponin I < 0.02 ng/ml (0.00-0.05) 08/26/19 00:06 Current Medications Generic Name Dose Route Start Last Admin Trade Name Freq PRN Reason Stop Dose Admin Acetaminophen 650 mg 08/26/19 05:37 Tylenol - PO Q4H PRN PAIN LEVEL 1-5 Chlordiazepoxide HCl 10 mg 08/29/19 00:00 Librium - PO 08/29/19 23:59 Q12H PRN Signs/symptoms of Withdrawal Chlordiazepoxide HCl 15 mg 08/28/19 05:00 08/28/19 05:10 Librium - PO 08/28/19 21:01 15 mg Q8H CHARLY Administration Chlordiazepoxide HCl 10 mg 08/29/19 05:00 Librium - PO 08/29/19 21:01 Q8H CHARLY Chlordiazepoxide HCl 10 mg 08/30/19 05:00 Librium - PO 08/30/19 05:01 ONCE ONE Chlordiazepoxide HCl 10 mg 08/26/19 10:38 Librium - PO 08/28/19 23:59 Q8H PRN Signs/symptoms of Withdrawal Folic Acid 1 mg 08/26/19 10:00 08/27/19 10:49 Folic Acid - PO 1 mg DAILY CHARLY Administration Heparin Sodium (Porcine) 5,000 unit 08/26/19 06:00 08/28/19 05:11 Heparin - SQ Not Given TID CHARLY Sodium Chloride 2,000 mls @ 42 mls/hr 08/25/19 23:45 08/28/19 00:05 Normal Saline - IV Not Given ASDIR CHARLY Ceftriaxone Sodium 2 gm/ 100 mls @ 200 mls/hr 08/26/19 22:00 08/27/19 21:08 Dextrose IVPB 200 mls/hr BID CHARLY Administration Protocol Vancomycin HCl 1,000 mg in 250 mls @ 166.667 mls/hr 08/26/19 13:00 08/28/19 00:03 Vancomycin (Pre-Docked) IVPB 166.667 mls/hr Q12H CHARLY Administration Protocol Methadone HCl 80 mg/ Methadone 100 mg 08/26/19 10:45 08/28/19 05:10 HCl 20 mg PO 100 mg DAILY@0600 CHARLY Administration Multivitamins/Minerals/Vitamin C 1 tab 08/26/19 10:00 08/27/19 10:48 Tab-A-Vit - PO 1 tab DAILY CHARLY Administration Nicotine 14 mg 08/26/19 10:00 08/27/19 10:48 Nicoderm Patch - TD Not Given DAILY CHARLY Thiamine HCl 100 mg 08/26/19 10:00 08/27/19 10:49 Vitamin B1 - PO 100 mg DAILY CHARLY Administration Home Medications Medication Instructions Recorded NK [No Known Home Medication] 10/24/18 Urine Test Results Urine Color [place] 08/25/19 23:39 Urine Appearance Cloudy 08/25/19 23:39 Urine pH 6.0 (5.0-8.0) 08/25/19 23:39 Ur Specific [place] 1.011 (1.010-1.035) 08/25/19 23:39 Urine Protein 2+ (NEGATIVE) H 08/25/19 23:39 Urine Glucose (UA) Negative (NEGATIVE) 08/25/19 23:39 Urine Ketones Negative (NEGATIVE) 08/25/19 23:39 Urine Blood 3+ (NEGATIVE) H 08/25/19 23:39 Urine Nitrite Positive (NEGATIVE) H 08/25/19 23:39 Urine Bilirubin Negative (NEGATIVE) 08/25/19 23:39 Ur Leukocyte Esterase 3+ (NEGATIVE) H 08/25/19 23:39 Microbiology Microbiology 08/25/19 23:39 Urine - Urine Clean Catch Urine Culture - Preliminary Escherichia Coli Group D Strep Or Entero Coccus; sensitive to everything 08/26/19 00:06 Blood - Peripheral Venous Blood Culture - Preliminary NO GROWTH OBTAINED AFTER 48 HOURS, INCUBATION TO CONTINUE FOR 3 DAYS. 08/26/19 00:06 Blood - Peripheral Venous Blood Culture - Preliminary NO GROWTH OBTAINED AFTER 48 HOURS, INCUBATION TO CONTINUE FOR 3 DAYS. ASSESSMENT AND PLAN: Patient is a 49yo female with Pmhx of Untreated HIV, Untreated Hep C, and polysubstance abuse ( heroin, cocaine, ETOH) who presented to [facility] for detox and was found to have fever so she was sent to [facility] for further care. # Acute UTI/R pyelonephritis, on IV antibiotic Rocephin continue, has TR murmur on exam, has lymphadenopathy ---> lymphoma in DDx - Echo , negative for endocarditis, EF is 70%, continue ceftriaxone and vanco for now , urine cx as above, renal US with no abscess. ID consult appreciated . # Polysubtance abuse: Heroin/ cont her home dose methadone/ ETOH: completing Librium protocol in am. # Lymphadenopathy: B/l Axillary and R groin. most likely due to Her HIV , can't r/o lymphoma - She was offered excisional Bx, but she declined. She understands this could be cancer # H/o HIV: agreed for blood work today # Microcytic anemia: suspect iron def form nutritional def or slow GI bleed , iron panel, b12, fa level #Thrombocytopenia: could be due to the splenomegaly form liver disease. or from BM suppression from alcohol DVT Px: Heparin SQ, patient has borderline platelets , monitor dc in am if patient is stable.
[2019-08-28 10:07] LABS: ALBUMIN 2.5 g/dl (3.4-5.0); BILIRUBIN,TOTAL 0.2 mg/dL (0.2-1); BLOOD UREA NITROGEN 8.6 mg/dL (7-18); CREATININE 0.8 mg/dL (0.55-1.3); POTASSIUM 3.8 mmol/L (3.5-5.1)
[2019-08-28] MEDS ORDERED: DEXTROSE 5%-WATER 100 ML IVPB ONE (10:35)
[2019-08-28] MEDS: NICOTINE 14 MG/24 HOURS TOPICAL PATCH TD SCH (11:13)
[2019-08-28] MEDS: CEFTRIAXONE 2 GM in DEXTROSE 5%-WATER 100 ML IVPB SCH (11:13)
[2019-08-28] MEDS: MULTIVITAMINS (DAILY MVI) TABLET (FP) PO SCH (11:27)
[2019-08-28] MEDS: FOLIC ACID 1 MG TABLET (FP) PO SCH (11:27)
[2019-08-28] MEDS: THIAMINE HCL 100 MG TABLET (FP) PO SCH (11:27)
--- NOTE | 2019-08-28 13:34 | PN ---
Physical Exam: SUBJECTIVE: Patient seen and examined 49 y/o F, pmh of HIV+ not on medication (last check up 2 years ago), Hep C + not on medication, polysubstance abuse (cocaine, IV heroin, xanax, nicotine, alcohol) was sent from [facility] for lower abdominal pain accompanied non- bloody diarrhea and high grade fever (103.7 F) is admitted for complicated UTI. Pt feels much better. No longer withdrawing. No overnight issues. Denies pain, fevers or any other c/o.. Denies n/v/sob, numbness or tingling, blood in stool. OBJECTIVE: Vital Signs Period Temp Pulse Resp BP Sys/López Pulse Ox Last 24 Hr 97.5 F-99.3 F 60-84 18-18 109-132/67-84 97 GENERAL: Awake, alert, and fully oriented, in no acute distress. HEAD: No signs of trauma, AT/NC EYES: EOMI, sclera anicteric, conjunctiva clear, PERRLA ENT: poor dentition, dry mucosa NECK: No LAD, no carotid bruit, supple LUNGS: clear to auscultation bilaterally, no wheezes, rales or ronchi, no crackles HEART: Regular rate and rhythm, normal S1 and S2, Tricuspid Murmur can be appreciated, rubs or gallops. Breast: prominent Lymph nodes palpable under the armpit b/l. Breast exam normal ABDOMEN: Soft, slight diffuse tenderness more pronounced in suprapubic region. No guarding, no rebound. denies CVA tenderness Groin: Palpable Lymph nodes on the right groin EXTREMITIES: Normal inspection, Normal range of motion, no edema. No clubbing or cyanosis. NEUROLOGICAL: Cranial nerves II through XII grossly intact. SKIN: warm, multiple track carr b/l upper extremities Laboratory Results - last 24 hr WBC 2.7 K/mm3 (4.0-10.0) L 08/28/19 07:40 RBC 3.60 M/mm3 (3.60-5.2) 08/28/19 07:40 Hgb 9.3 GM/dL (10.7-15.3) L 08/28/19 07:40 Hct 28.2 % (32.4-45.2) L 08/28/19 07:40 MCV 78.4 fl (80-96) L 08/28/19 07:40 MCH 26.0 pg (25.7-33.7) 08/28/19 07:40 MCHC 33.1 g/dl (32.0-36.0) 08/28/19 07:40 RDW 13.8 % (11.6-15.6) 08/28/19 07:40 Plt Count 122 K/MM3 (134-434) L 08/28/19 07:40 MPV 11.8 fl (7.5-11.1) H 08/28/19 07:40 Absolute Neuts (auto) 1.4 K/mm3 (1.5-8.0) L 08/28/19 07:40 Absolute Lymphs (auto) 0.9 x10E3/uL (0.7-3.1) 08/27/19 07:15 Neutrophils % 50.5 % (42.8-82.8) 08/28/19 07:40 Neutrophils % (Manual) 56.6 % (42.8-82.8) 08/26/19 00:06 Band Neutrophils % 15.1 % 08/26/19 00:06 Lymphocytes % 34.7 % (8-40) 08/28/19 07:40 Lymphocytes % (Manual) 19.2 % (8-40) 08/26/19 00:06 Monocytes % 10.0 % (3.8-10.2) 08/28/19 07:40 Monocytes % (Manual) 6 % (3.8-10.2) 08/26/19 00:06 Eosinophils % 4.4 % (0-4.5) 08/28/19 07:40 Eosinophils % (Manual) 0.0 % (0-4.5) 08/26/19 00:06 Basophils % 0.4 % (0-2.0) 08/28/19 07:40 Basophils % (Manual) 0.0 % (0-2.0) 08/26/19 00:06 Myelocytes % (Man) 1 % (0-2) 08/26/19 00:06 Promyelocytes % (Man) 0 % (0-2) 08/26/19 00:06 Blast Cells % (Manual) 0 % (0-0) 08/26/19 00:06 Nucleated RBC % 0 % (0-0) 08/28/19 07:40 Lymphocytes 30 % (Not Estab.) 08/27/19 07:15 Metamyelocytes 0 % (0-2) 08/26/19 00:06 Nucleated RBCs TNP 08/27/19 07:15 Hypochromia 0 08/26/19 00:06 Platelet Estimate Decreased 08/26/19 00:06 Platelet Comment No clumping noted 08/26/19 00:06 Polychromasia 0 08/26/19 00:06 Poikilocytosis 1+ 08/26/19 00:06 Anisocytosis 2+ 08/26/19 00:06 Microcytosis 2+ 08/26/19 00:06 Macrocytosis 0 08/26/19 00:06 Sodium 139 mmol/L (136-145) 08/28/19 07:40 Potassium 3.8 mmol/L (3.5-5.1) 08/28/19 07:40 Chloride 107 mmol/L (98-107) 08/28/19 07:40 Carbon Dioxide 25 mmol/L (21-32) 08/28/19 07:40 Anion Gap 7 MMOL/L (8-16) L 08/28/19 07:40 BUN 8.6 mg/dL (7-18) 08/28/19 07:40 Creatinine 0.8 mg/dL (0.55-1.3) 08/28/19 07:40 Est GFR (CKD-EPI)AfAm 101.04 08/28/19 07:40 Est GFR (CKD-EPI)NonAf 87.18 08/28/19 07:40 Random Glucose 81 mg/dL (74-106) 08/28/19 07:40 Lactic Acid 1.5 mmol/L (0.4-2.0) 08/26/19 00:06 Calcium 8.0 mg/dL (8.5-10.1) L 08/28/19 07:40 Transferrin 150 mg/dL (200-370) L 08/27/19 07:15 Total Bilirubin 0.2 mg/dL (0.2-1) 08/28/19 07:40 AST 35 U/L (15-37) 08/28/19 07:40 ALT 26 U/L (13-61) 08/28/19 07:40 Alkaline Phosphatase 102 U/L (45-117) 08/28/19 07:40 Troponin I < 0.02 ng/ml (0.00-0.05) 08/26/19 00:06 Total Protein 7.0 g/dl (6.4-8.2) 08/28/19 07:40 Albumin 2.5 g/dl (3.4-5.0) L 08/28/19 07:40 Active Medications Current Medications Acetaminophen (Tylenol -) 650 mg PO Q4H PRN PRN Reason: PAIN LEVEL 1-5 Amoxicillin/Clavulanate Potassium (Augmentin - 875mg Tablet) 1 tab PO BID@0800, 1730 [facility] Chlordiazepoxide HCl (Librium -) 10 mg PO Q12H PRN PRN Reason: Signs/symptoms of Withdrawal Stop: 08/29/19 23:59 Chlordiazepoxide HCl (Librium -) 15 mg PO Q8H [facility] Stop: 08/28/19 21:01 Last Admin: 08/28/19 12:34 Dose: 15 mg Chlordiazepoxide HCl (Librium -) 10 mg PO Q8H [facility] Stop: 08/29/19 21:01 Chlordiazepoxide HCl (Librium -) 10 mg PO ONCE ONE Stop: 08/30/19 05:01 Chlordiazepoxide HCl (Librium -) 10 mg PO Q8H PRN PRN Reason: Signs/symptoms of Withdrawal Stop: 08/28/19 23:59 Folic Acid (Folic Acid -) 1 mg PO DAILY [facility] Last Admin: 08/28/19 11:27 Dose: 1 mg Heparin Sodium (Porcine) (Heparin -) 5,000 unit SQ TID [facility] Last Admin: 08/28/19 05:11 Dose: Not Given Sodium Chloride (Normal Saline -) 2,000 mls @ 42 mls/hr IV ASDIR [facility] Last Admin: 08/28/19 00:05 Dose: Not Given Methadone HCl 80 mg/ Methadone (HCl 20 mg) 100 mg PO DAILY@0600 [facility] Last Admin: 08/28/19 05:10 Dose: 100 mg Multivitamins/Minerals/Vitamin C (Tab-A-Vit -) 1 tab PO DAILY [facility] Last Admin: 08/28/19 11:27 Dose: 1 tab Nicotine (Nicoderm Patch -) 14 mg TD DAILY [facility] Last Admin: 08/28/19 11:13 Dose: Not Given Thiamine HCl (Vitamin B1 -) 100 mg PO DAILY [facility] Last Admin: 08/28/19 11:27 Dose: 100 mg Home Medications Medication Instructions Recorded NK [No Known Home Medication] 10/24/18 Microbiology 08/25/19 23:39 Urine - Urine Clean Catch Urine Culture - Preliminary Escherichia Coli Group D Strep Or Entero Coccus 08/26/19 00:06 Blood - Peripheral Venous Blood Culture - Preliminary NO GROWTH OBTAINED AFTER 48 HOURS, INCUBATION TO CONTINUE FOR 3 DAYS. 08/26/19 00:06 Blood - Peripheral Venous Blood Culture - Preliminary NO GROWTH OBTAINED AFTER 48 HOURS, INCUBATION TO CONTINUE FOR 3 DAYS. ASSESSMENT/PLAN: 49 y/o F, pmh of HIV+ not on medication (last check up 2 years ago), Hep C + not on medication, polysubstance abuse (cocaine, IV heroin, xanax, nicotine, alcohol) was sent from [facility] for lower abdominal pain accompanied non- bloody diarrhea and high grade fever (103.7 F) is admitted for complicated UTI #Fever 2/2 UTI/ Pyelonephritis. r/o infective endocarditis UCx-Shows lactose fermenting negative bacilli- E-Coli sensitive to several abx BCx- no growth ID consult- recom Vanc/Ceftriaxone As per ID- pt can go home on Augmentin 7 days. Renal US with no abscess Abd U/S: contracted Gallbladder, mild splenomegaly Echo- no vegetations visible, EF normal UA+ #HIV Pt allowed blood work- Absolute CD4 helper- 277 CD3: 701 CD8: 416 Currently not on HAART tx- declines tx Pt asserts if she can get referrals for physicians in [place], she might consider ART treatment #Hepatitis C stool culture, O& P,WBC if diarrhea recurs Obtain medical records from patient's HIV physician B/l Axillary and R groin likely 2/2 to HIV but cannot r/o lymphoma- f/u Pt was offered Bx, but pt refused. She understands this could be cancer but still refused #Thrombocytopenia/ Microcytic anemia likely 2/2 HIV, hepatitis C Ferritin, iron studies, retic count Vitamin B12 and folate Iron studies pending Consider outpt f/u #Polysubstance abuse Librium protocoal day 3 Nicotine patch 14 Methadone as needed if acute withdrawal from opiates. 100 of methadone as per confirmed from her [place] clinic. #FEN regular diet #DVT hep subQ Dispo: f/u blood work, monitor vitals, cont librium protocol, possible d/c siri Visit type - Emergency Visit Emergency Visit: Yes ED Registration Date: 08/26/19 Care time: The patient presented to the Emergency Department on the above date and was hospitalized for further evaluation of their emergent condition. - New Patient This patient is new to me today: Yes Date on this admission: 08/29/19 - Critical Care Critical Care patient: No - Discharge Referral Referred to [facility] Med [facility].C.: No ATTENDING PHYSICIAN STATEMENT I saw and evaluated the patient. I reviewed the resident's note and discussed the case with the resident. I agree with the resident's findings and plan as documented. SUBJECTIVE: OBJECTIVE: ASSESSMENT AND PLAN:
--- NOTE | 2019-08-28 16:53 | PN ---
Progress Note, Physician History of Present Illness: FEELING BETTER NO C/O DYSURIA NO SUPRAPUBIC OR FLANK PAIN TEMPS DOWN AFEBRILE BC (-) URINE C/S ECOLI CD4 277 - Current Medication List Current Medications: Active Medications Acetaminophen (Tylenol -) 650 mg PO Q4H PRN PRN Reason: PAIN LEVEL 1-5 Amoxicillin/Clavulanate Potassium (Augmentin - 875mg Tablet) 1 tab PO BID@0800, 1730 [facility] Chlordiazepoxide HCl (Librium -) 10 mg PO Q12H PRN PRN Reason: Signs/symptoms of Withdrawal Stop: 08/29/19 23:59 Chlordiazepoxide HCl (Librium -) 15 mg PO Q8H [facility] Stop: 08/28/19 21:01 Last Admin: 08/28/19 12:34 Dose: 15 mg Chlordiazepoxide HCl (Librium -) 10 mg PO Q8H [facility] Stop: 08/29/19 21:01 Chlordiazepoxide HCl (Librium -) 10 mg PO ONCE ONE Stop: 08/30/19 05:01 Chlordiazepoxide HCl (Librium -) 10 mg PO Q8H PRN PRN Reason: Signs/symptoms of Withdrawal Stop: 08/28/19 23:59 Folic Acid (Folic Acid -) 1 mg PO DAILY [facility] Last Admin: 08/28/19 11:27 Dose: 1 mg Heparin Sodium (Porcine) (Heparin -) 5,000 unit SQ TID [facility] Last Admin: 08/28/19 05:11 Dose: Not Given Sodium Chloride (Normal Saline -) 2,000 mls @ 42 mls/hr IV ASDIR [facility] Last Admin: 08/28/19 00:05 Dose: Not Given Methadone HCl 80 mg/ Methadone (HCl 20 mg) 100 mg PO DAILY@0600 [facility] Last Admin: 08/28/19 05:10 Dose: 100 mg Multivitamins/Minerals/Vitamin C (Tab-A-Vit -) 1 tab PO DAILY [facility] Last Admin: 08/28/19 11:27 Dose: 1 tab Nicotine (Nicoderm Patch -) 14 mg TD DAILY [facility] Last Admin: 08/28/19 11:13 Dose: Not Given Thiamine HCl (Vitamin B1 -) 100 mg PO DAILY [facility] Last Admin: 08/28/19 11:27 Dose: 100 mg - Objective Vital Signs: Vital Signs Temperature 98.0 F 08/28/19 13:00 Pulse Rate 63 08/28/19 13:00 Respiratory Rate 18 08/28/19 13:00 Blood Pressure 107/66 08/28/19 13:00 O2 Sat by Pulse Oximetry (%) 97 08/28/19 09:00 Constitutional: Yes: Thin Cardiovascular: Yes: Regular Rate and Rhythm, S1, S2 Respiratory: Yes: CTA Bilaterally Gastrointestinal: Yes: Normal Bowel Sounds, Soft. No: Tenderness Genitourinary: No: CVA Tenderness - Left, CVA Tenderness - Right Labs: CBC, BMP 08/28/19 07:40 08/28/19 07:40 INR, PTT INR 1.07 (0.83-1.09) 08/26/19 00:06 Assessment/Plan UTI ?PYELO IMPROVED HIV + SUBSTITUTE AUGMENTIN PO X 7D PT WILL CONSIDER STARTING ART AT OUTPATIENT F/U
[2019-08-28] MEDS: AMOX TR/POT CLAV 875MG/125MG TABLETS (FP) PO SCH (17:08)
[2019-08-29] MEDS ORDERED: chlordiazePOXIDE 5 MG CAPSULE PO PRN
[2019-08-29] MEDS: SODIUM CHLORIDE 2,000 ML IV SCH (02:50)
[2019-08-29] MEDS ORDERED: METHADONE HCL 10 MG TABLET ONE (05:39)
[2019-08-29] MEDS ORDERED: METHADONE HCL 40 MG DISPERSABLE TABLET ONE (05:39)
[2019-08-29] MEDS: chlordiazePOXIDE 5 MG CAPSULE PO SCH ×2 (05:41→13:00)
[2019-08-29] MEDS: METHADONE 80 MG, METHADONE 20 MG PO SCH (05:42)
[2019-08-29] MEDS: HEPARIN NA (PORCINE) 5,000 UNITS/ML 1ML VIAL SQ SCH ×2 (06:39→13:03)
--- NOTE | 2019-08-29 08:43 | PN ---
Teaching Attending Note Name of Resident: José Bess ATTENDING PHYSICIAN STATEMENT I saw and evaluated the patient. I reviewed the resident's note and discussed the case with the resident. I agree with the resident's findings and plan as documented. SUBJECTIVE: Patient is feeling better with no acute distress. wants to go home. Vital Signs Temperature 98.6 F 08/29/19 06:00 Pulse Rate 63 08/29/19 06:00 Respiratory Rate 18 08/29/19 06:00 Blood Pressure 129/73 08/29/19 06:00 O2 Sat by Pulse Oximetry (%) 100 08/28/19 21:00 GENERAL: The patient is awake, alert, and fully oriented, in no acute distress. HEAD: Normal with no signs of trauma. EYES: PERRL, extraocular movements intact, sclera anicteric, conjunctiva clear. ENT: Ears normal, oropharynx clear without exudates, moist mucous membranes. NECK: Trachea midline, full range of motion, supple. LUNGS: Breath sounds equal, clear to auscultation bilaterally, no wheezes, no crackles, no accessory muscle use. HEART: Regular rate and rhythm, S1, S2 positive, 3/6 SM LLSB, no rub or gallop. ABDOMEN: Soft, nontender, nondistended, normoactive bowel sounds, no guarding, no rebound, no hepatosplenomegaly, no masses. EXTREMITIES: 2+ pulses, warm, well-perfused, no edema. NEUROLOGICAL: Cranial nerves II through XII grossly intact. Normal speech, gait not observed. PSYCH: Normal mood, normal affect. SKIN: Warm, dry, normal turgor, no rashes or lesions noted Lymphatic system: enlarged lymph nodes in b/l axillary areas , on each side, and one Lymph node in R groin . CBCD WBC 2.7 K/mm3 (4.0-10.0) L 08/28/19 07:40 RBC 3.60 M/mm3 (3.60-5.2) 08/28/19 07:40 Hgb 9.3 GM/dL (10.7-15.3) L 08/28/19 07:40 Hct 28.2 % (32.4-45.2) L 08/28/19 07:40 MCV 78.4 fl (80-96) L 08/28/19 07:40 MCHC 33.1 g/dl (32.0-36.0) 08/28/19 07:40 RDW 13.8 % (11.6-15.6) 08/28/19 07:40 Plt Count 122 K/MM3 (134-434) L 08/28/19 07:40 MPV 11.8 fl (7.5-11.1) H 08/28/19 07:40 CMP Sodium 139 mmol/L (136-145) 08/28/19 07:40 Potassium 3.8 mmol/L (3.5-5.1) 08/28/19 07:40 Chloride 107 mmol/L (98-107) 08/28/19 07:40 Carbon Dioxide 25 mmol/L (21-32) 08/28/19 07:40 Anion Gap 7 MMOL/L (8-16) L 08/28/19 07:40 BUN 8.6 mg/dL (7-18) 08/28/19 07:40 Creatinine 0.8 mg/dL (0.55-1.3) 08/28/19 07:40 Random Glucose 81 mg/dL (74-106) 08/28/19 07:40 Calcium 8.0 mg/dL (8.5-10.1) L 08/28/19 07:40 Total Bilirubin 0.2 mg/dL (0.2-1) 08/28/19 07:40 AST 35 U/L (15-37) 08/28/19 07:40 ALT 26 U/L (13-61) 08/28/19 07:40 Alkaline Phosphatase 102 U/L (45-117) 08/28/19 07:40 Total Protein 7.0 g/dl (6.4-8.2) 08/28/19 07:40 Albumin 2.5 g/dl (3.4-5.0) L 08/28/19 07:40 CARDIAC ENZYMES Troponin I < 0.02 ng/ml (0.00-0.05) 08/26/19 00:06 Current Medications Generic Name Dose Route Start Last Admin Trade Name Freq PRN Reason Stop Dose Admin Acetaminophen 650 mg 08/26/19 05:37 Tylenol - PO Q4H PRN PAIN LEVEL 1-5 Amoxicillin/Clavulanate Potassium 1 tab 08/28/19 17:30 08/28/19 17:08 Augmentin - 875mg Tablet PO 1 tab BID@0800,1730 CHARLY Administration Chlordiazepoxide HCl 10 mg 08/29/19 00:00 Librium - PO 08/29/19 23:59 Q12H PRN Signs/symptoms of Withdrawal Chlordiazepoxide HCl 10 mg 08/29/19 05:00 08/29/19 05:41 Librium - PO 08/29/19 21:01 10 mg Q8H CHARLY Administration Chlordiazepoxide HCl 10 mg 08/30/19 05:00 Librium - PO 08/30/19 05:01 ONCE ONE Folic Acid 1 mg 08/26/19 10:00 08/28/19 11:27 Folic Acid - PO 1 mg DAILY CHARLY Administration Heparin Sodium (Porcine) 5,000 unit 08/26/19 06:00 08/29/19 06:39 Heparin - SQ Not Given TID [facility] Sodium Chloride 2,000 mls @ 42 mls/hr 08/25/19 23:45 08/29/19 02:50 Normal Saline - IV Not Given ASDIR [facility] Methadone HCl 80 mg/ Methadone 100 mg 08/26/19 10:45 08/29/19 05:42 HCl 20 mg PO 100 mg DAILY@0600 [facility] Administration Multivitamins/Minerals/Vitamin C 1 tab 08/26/19 10:00 08/28/19 11:27 Tab-A-Vit - PO 1 tab DAILY [facility] Administration Nicotine 14 mg 08/26/19 10:00 08/28/19 11:13 Nicoderm Patch - TD Not Given DAILY [facility] Thiamine HCl 100 mg 08/26/19 10:00 08/28/19 11:27 Vitamin B1 - PO 100 mg DAILY CHARLY Administration Home Medications Medication Instructions Recorded NK [No Known Home Medication] 10/24/18 Urine Test Results Urine Color [place] 08/25/19 23:39 Urine Appearance Cloudy 08/25/19 23:39 Urine pH 6.0 (5.0-8.0) 08/25/19 23:39 Ur Specific [place] 1.011 (1.010-1.035) 08/25/19 23:39 Urine Protein 2+ (NEGATIVE) H 08/25/19 23:39 Urine Glucose (UA) Negative (NEGATIVE) 08/25/19 23:39 Urine Ketones Negative (NEGATIVE) 08/25/19 23:39 Urine Blood 3+ (NEGATIVE) H 08/25/19 23:39 Urine Nitrite Positive (NEGATIVE) H 08/25/19 23:39 Urine Bilirubin Negative (NEGATIVE) 08/25/19 23:39 Ur Leukocyte Esterase 3+ (NEGATIVE) H 08/25/19 23:39 Microbiology 08/25/19 23:39 Urine - Urine Clean Catch Urine Culture - Preliminary Escherichia Coli Group D Strep Or Entero Coccus; sensitive to everything 08/26/19 00:06 Blood - Peripheral Venous Blood Culture - Preliminary NO GROWTH OBTAINED AFTER 48 HOURS, INCUBATION TO CONTINUE FOR 3 DAYS. 08/26/19 00:06 Blood - Peripheral Venous Blood Culture - Preliminary NO GROWTH OBTAINED AFTER 48 HOURS, INCUBATION TO CONTINUE FOR 3 DAYS. Microbiology 08/26/19 00:06 Blood Culture - Preliminary Blood - Peripheral Venous NO GROWTH OBTAINED AFTER 72 HOURS, INCUBATION TO CONTINUE FOR 2 DAYS. 08/26/19 00:06 Blood Culture - Preliminary Blood - Peripheral Venous NO GROWTH OBTAINED AFTER 72 HOURS, INCUBATION TO CONTINUE FOR 2 DAYS. 08/25/19 23:39 Urine Culture - Preliminary Urine - Urine Clean Catch Escherichia Coli Group D Strep Or Entero Coccus Laboratory Tests 08/27/19 08/27/19 08/27/19 07:15 07:15 07:15 Absolute CD3 Count 701 % CD3+ Lymphocytes 77.9 Absolute CD4 [place] 277 L % CD4+ Lymphocyte 30.8 CD4/CD8 Ratio 0.67 L % CD8+ Lymphocyte 46.2 H Absolute CD8 Count 416 Hep A IgM Ab Confirm Negative Hep Bs Antigen Negative Hep B Core IgM Ab Negative Hepatitis C Ab (EIA) >11.0 H HCV Quantitation [id number] HCV RNA log copies/mL 6.462 HIV 1&2 Ag/Ab, 4th Gen Pending HIV 1&2 Antibody Screen Preliminary positive A HIV P24 Antigen Negative 08/27/19 08/27/19 07:15 14:00 Absolute CD3 Count % CD3+ Lymphocytes Absolute CD4 [place] % CD4+ Lymphocyte CD4/CD8 Ratio % CD8+ Lymphocyte Absolute CD8 Count Hep A IgM Ab Confirm Hep Bs Antigen Hep B Core IgM Ab Negative Hepatitis C Ab (EIA) HCV Quantitation HCV RNA log copies/mL HIV 1&2 Ag/Ab, 4th Gen Pending HIV 1&2 Antibody Screen HIV P24 Antigen ASSESSMENT AND PLAN: Patient is a 49yo female with Pmhx of Untreated HIV, Untreated Hep C, and polysubstance abuse ( heroin, cocaine, ETOH) who presented to [facility] for detox and was found to have fever so she was sent to [facility] for further care. # Acute UTI/R pyelonephritis, s/p IV antibiotic Rocephin , will discharge the patient on Augmentin 875mg BID x 7 days, - Echo , negative for endocarditis, EF is 70%, continue ceftriaxone and vanco for now , urine cx as above, renal US with no abscess. ID consult appreciated . # Polysubtance abuse: Heroin/ cont her home dose methadone/ ETOH: completed Librium protocol . # Lymphadenopathy: B/l Axillary and R groin. most likely due to Her HIV , can't r/o lymphoma - She was offered excisional Bx, but she declined. She understands this could be cancer # H/o HIV: Hiv test as above, patient will follow up [facility] to start ART. as per Infectious dz # Microcytic anemia: patient refused the labs to be drawn ; suspect iron def form nutritional def or slow GI bleed , iron panel, b12, fe level #Thrombocytopenia: multifactorial ; could be due to the splenomegaly form liver disease. or from BM suppression from alcohol DVT Px: Heparin SQ, patient has borderline platelets , monitor dc patient home with follow up visit to [facility], discussed with Infectious dz nurse , will notify board of health.
[2019-08-29] MEDS: FOLIC ACID 1 MG TABLET (FP) PO SCH (09:10)
[2019-08-29] MEDS: MULTIVITAMINS (DAILY MVI) TABLET (FP) PO SCH (09:10)
[2019-08-29] MEDS: THIAMINE HCL 100 MG TABLET (FP) PO SCH (09:10)
[2019-08-29] MEDS: AMOX TR/POT CLAV 875MG/125MG TABLETS (FP) PO SCH (09:10)
[2019-08-29] MEDS: NICOTINE 14 MG/24 HOURS TOPICAL PATCH TD SCH (09:11)
--- NOTE | 2019-08-29 14:37 | DS ---
Physical Exam: SUBJECTIVE: Patient seen and examined. asymptomatic, afebrile without any c/o. Pt feels much better. No longer withdrawing. No overnight issues. Denies pain, fevers or any other c/o.. Denies n/v/sob, numbness or tingling, blood in stool. OBJECTIVE: Vital Signs Period Temp Pulse Resp BP Sys/López Pulse Ox Last 24 Hr 98.1 F-98.6 F 61-69 18-18 112-129/70-80 100-100 PHYSICAL EXAM GENERAL: Awake, alert, and fully oriented, in no acute distress. HEAD: No signs of trauma, AT/NC EYES: EOMI, sclera anicteric, conjunctiva clear, PERRLA ENT: poor dentition, dry mucosa NECK: No LAD, no carotid bruit, supple LUNGS: clear to auscultation bilaterally, no wheezes, rales or ronchi, no crackles HEART: Regular rate and rhythm, normal S1 and S2, Tricuspid Murmur can be appreciated, rubs or gallops. Breast: prominent Lymph nodes palpable under the armpit b/l. Breast exam normal ABDOMEN: Soft, slight diffuse tenderness more pronounced in suprapubic region. No guarding, no rebound. denies CVA tenderness Groin: Palpable Lymph nodes on the right groin EXTREMITIES: Normal inspection, Normal range of motion, no edema. No clubbing or cyanosis. NEUROLOGICAL: Cranial nerves II through XII grossly intact. SKIN: warm, multiple track carr b/l upper extremities LABS Laboratory Results - last 24 hr CBC,CMP WBC 2.7 K/mm3 (4.0-10.0) L 08/28/19 07:40 RBC 3.60 M/mm3 (3.60-5.2) 08/28/19 07:40 Hgb 9.3 GM/dL (10.7-15.3) L 08/28/19 07:40 Hct 28.2 % (32.4-45.2) L 08/28/19 07:40 MCV 78.4 fl (80-96) L 08/28/19 07:40 MCH 26.0 pg (25.7-33.7) 08/28/19 07:40 MCHC 33.1 g/dl (32.0-36.0) 08/28/19 07:40 RDW 13.8 % (11.6-15.6) 08/28/19 07:40 Plt Count 122 K/MM3 (134-434) L 08/28/19 07:40 MPV 11.8 fl (7.5-11.1) H 08/28/19 07:40 Absolute Neuts (auto) 1.4 K/mm3 (1.5-8.0) L 08/28/19 07:40 Absolute Lymphs (auto) 0.9 x10E3/uL (0.7-3.1) 08/27/19 07:15 Neutrophils % 50.5 % (42.8-82.8) 08/28/19 07:40 Neutrophils % (Manual) 56.6 % (42.8-82.8) 08/26/19 00:06 Band Neutrophils % 15.1 % 08/26/19 00:06 Lymphocytes % 34.7 % (8-40) 08/28/19 07:40 Lymphocytes % (Manual) 19.2 % (8-40) 08/26/19 00:06 Monocytes % 10.0 % (3.8-10.2) 08/28/19 07:40 Monocytes % (Manual) 6 % (3.8-10.2) 08/26/19 00:06 Eosinophils % 4.4 % (0-4.5) 08/28/19 07:40 Eosinophils % (Manual) 0.0 % (0-4.5) 08/26/19 00:06 Basophils % 0.4 % (0-2.0) 08/28/19 07:40 Basophils % (Manual) 0.0 % (0-2.0) 08/26/19 00:06 Myelocytes % (Man) 1 % (0-2) 08/26/19 00:06 Promyelocytes % (Man) 0 % (0-2) 08/26/19 00:06 Blast Cells % (Manual) 0 % (0-0) 08/26/19 00:06 Nucleated RBC % 0 % (0-0) 08/28/19 07:40 Lymphocytes 30 % (Not Estab.) 08/27/19 07:15 Metamyelocytes 0 % (0-2) 08/26/19 00:06 Nucleated RBCs TNP 08/27/19 07:15 Hypochromia 0 08/26/19 00:06 Platelet Estimate Decreased 08/26/19 00:06 Platelet Comment No clumping noted 08/26/19 00:06 Polychromasia 0 08/26/19 00:06 Poikilocytosis 1+ 08/26/19 00:06 Anisocytosis 2+ 08/26/19 00:06 Microcytosis 2+ 08/26/19 00:06 Macrocytosis 0 08/26/19 00:06 Sodium 139 mmol/L (136-145) 08/28/19 07:40 Potassium 3.8 mmol/L (3.5-5.1) 08/28/19 07:40 Chloride 107 mmol/L (98-107) 08/28/19 07:40 Carbon Dioxide 25 mmol/L (21-32) 08/28/19 07:40 Anion Gap 7 MMOL/L (8-16) L 08/28/19 07:40 BUN 8.6 mg/dL (7-18) 08/28/19 07:40 Creatinine 0.8 mg/dL (0.55-1.3) 08/28/19 07:40 Est GFR (CKD-EPI)AfAm 101.04 08/28/19 07:40 Est GFR (CKD-EPI)NonAf 87.18 08/28/19 07:40 Random Glucose 81 mg/dL (74-106) 08/28/19 07:40 Lactic Acid 1.5 mmol/L (0.4-2.0) 08/26/19 00:06 Calcium 8.0 mg/dL (8.5-10.1) L 08/28/19 07:40 Transferrin 150 mg/dL (200-370) L 08/27/19 07:15 Total Bilirubin 0.2 mg/dL (0.2-1) 08/28/19 07:40 AST 35 U/L (15-37) 08/28/19 07:40 ALT 26 U/L (13-61) 08/28/19 07:40 Alkaline Phosphatase 102 U/L (45-117) 08/28/19 07:40 Troponin I < 0.02 ng/ml (0.00-0.05) 08/26/19 00:06 Total Protein 7.0 g/dl (6.4-8.2) 08/28/19 07:40 Albumin 2.5 g/dl (3.4-5.0) L 08/28/19 07:40 08/27/19 07:15 HCV Quantitation [id number] HCV RNA log copies/mL 6.462 Current Medications Acetaminophen (Tylenol -) 650 mg PO Q4H PRN PRN Reason: PAIN LEVEL 1-5 Amoxicillin/Clavulanate Potassium (Augmentin - 875mg Tablet) 1 tab PO BID@0800, 1730 [facility] Last Admin: 08/29/19 09:10 Dose: 1 tab Chlordiazepoxide HCl (Librium -) 10 mg PO Q12H PRN PRN Reason: Signs/symptoms of Withdrawal Stop: 08/29/19 23:59 Chlordiazepoxide HCl (Librium -) 10 mg PO Q8H [facility] Stop: 08/29/19 21:01 Last Admin: 08/29/19 13:00 Dose: 10 mg Chlordiazepoxide HCl (Librium -) 10 mg PO ONCE ONE Stop: 08/30/19 05:01 Folic Acid (Folic Acid -) 1 mg PO DAILY [facility] Last Admin: 08/29/19 09:10 Dose: 1 mg Heparin Sodium (Porcine) (Heparin -) 5,000 unit SQ TID [facility] Last Admin: 08/29/19 13:03 Dose: Not Given Sodium Chloride (Normal Saline -) 2,000 mls @ 42 mls/hr IV ASDIR [facility] Last Admin: 08/29/19 02:50 Dose: Not Given Methadone HCl 80 mg/ Methadone (HCl 20 mg) 100 mg PO DAILY@0600 [facility] Last Admin: 08/29/19 05:42 Dose: 100 mg Multivitamins/Minerals/Vitamin C (Tab-A-Vit -) 1 tab PO DAILY [facility] Last Admin: 08/29/19 09:10 Dose: 1 tab Nicotine (Nicoderm Patch -) 14 mg TD DAILY [facility] Last Admin: 08/29/19 09:11 Dose: Not Given Thiamine HCl (Vitamin B1 -) 100 mg PO DAILY [facility] Last Admin: 08/29/19 09:10 Dose: 100 mg Home Medications Medication Instructions Recorded Amoxicillin/Potassium Clav 1 each PO BID #13 tablet 08/29/19 [Augmentin 875-125 Tablet] Methadone [Dolophine -] 100 mg PO DAILY 08/29/19 Thiamine HCl [Vitamin B1 -] 100 mg PO DAILY #30 tablet 08/29/19 Microbiology 08/25/19 23:39 Urine - Urine Clean Catch Urine Culture - Final Escherichia Coli Enterococcus Faecalis 08/26/19 00:06 Blood - Peripheral Venous Blood Culture - Preliminary NO GROWTH OBTAINED AFTER 72 HOURS, INCUBATION TO CONTINUE FOR 2 DAYS. 08/26/19 00:06 Blood - Peripheral Venous Blood Culture - Preliminary NO GROWTH OBTAINED AFTER 72 HOURS, INCUBATION TO CONTINUE FOR 2 DAYS. HOSPITAL COURSE: Date of Admission:08/26/19 49 y/o F, pmh of HIV+ not on medication (last check up 2 years ago), Hep C + not on medication, polysubstance abuse (cocaine, IV heroin, xanax, nicotine, alcohol) was sent from [facility] [place] for lower abdominal pain accompanied non- bloody diarrhea and high grade fever (103.7 F) is admitted for complicated UTI. Pt was found to be withdrawing and was started on Librium protocoal and given methadone 100, after confirming with her detox clinic in [place]. Pt's UTI was treated with vanc/ceftriaxone and her symptoms improved significantly. We were unable to verify her disease status due to her refusal to allow for blood draw, untill the last 2 days before discharge. Pt has verified she does not want treatment of any sort or work up for her diseases. Pt was discharged after resolution of her UTI, with augmentin for 7 days. #Fever 2/2 UTI/ Pyelonephritis. r/o infective endocarditis UCx-Shows lactose fermenting negative bacilli- E-Coli sensitive to several abx BCx- no growth ID consult- recom Vanc/Ceftriaxone As per ID- pt can go home on Augmentin 7 days. Renal US with no abscess Abd U/S: contracted Gallbladder, mild splenomegaly Echo- no vegetations visible, EF normal #HIV Absolute CD4 helper- 277 CD3: 701 CD8: 416 Currently not on HAART tx- declines tx #Hepatitis C stool culture, O& P,WBC if diarrhea recurs B/l Axillary and R groin likely 2/2 to HIV but cannot r/o lymphoma- f/u Pt was offered Bx, but pt refused. She understands this could be cancer but still refused Date of Discharge: 08/29/19 Minutes to complete discharge: 35 Discharge Summary Problems reviewed: Yes Reason For Visit: URINARY TRACT INFECTION, HUMAN IMMUNODEFICIENCY Current Active Problems HIV (human immunodeficiency virus infection) (Chronic) Condition: Improved - Instructions Diet, Activity, Other Instructions: You were admitted to the hospital for a UTI While you were in the hospital, we evaluated you with lab work, blood work, imaging including CAT scan of you abdomen. We treated you infection with antibiotics and other medications and your symptoms improved. To complete treatment of your infection please take: Augmentin 875 mg by mouth twice a day You should make an appointment to follow up with an infectious disease doctor so you can continue medication for treatment of your chornic diseases. Please take all your medications as prescribed Please follow up with a primary care physician in 1 week Return to the emergency room if you experience any unbearable pain, shortness of breath, chest pain, nausea, vomiting, or worsening of condition. Referrals: [facility] Providers [Provider Group] - 1 Week Parag Pierson MD [Staff Physician] - Johnathon Brody MD [Staff Physician] - Disposition: HOME - Home Medications Comprehensive Discharge Medication List: Ambulatory Orders Amoxicillin/Potassium Clav [Augmentin 875-125 Tablet] 1 each PO BID #13 tablet 08/29/19 Methadone [Dolophine -] 100 mg PO DAILY 08/29/19 Thiamine HCl [Vitamin B1 -] 100 mg PO DAILY #30 tablet 08/29/19 This patient is new to me today: Yes Date on this admission: 08/29/19 Emergency Visit: Yes ED Registration Date: 08/26/19 Care time: The patient presented to the Emergency Department on the above date and was hospitalized for further evaluation of their emergent condition. Critical Care patient: No - Discharge Referral Referred to [facility] No ATTENDING PHYSICIAN STATEMENT I saw and evaluated the patient. I reviewed the resident's note and discussed the case with the resident. I agree with the resident's findings and plan as documented. SUBJECTIVE: OBJECTIVE: ASSESSMENT AND PLAN:
[2019-08-29 14:59] VITALS: BP 116/68; PULSE 57; TEMP 98
[2019-08-30] MEDS ORDERED: chlordiazePOXIDE 5 MG CAPSULE PO ONE (05:00)
== END 2019-08-29 15:29 | disposition home or self-care (01) | DRG 463 ==
LOC: JER 22:50 → JERBED 08-26 01:14 → J5S 08-26 02:59
PROVIDERS: ADMIT Internal Medicine; ATTEND Internal Medicine
DX: N12 Tubulo-interstitial nephritis, not specified as acute or chronic (principal); D61.818 Other pancytopenia; F14.20 Cocaine dependence, uncomplicated; F11.20 Opioid dependence, uncomplicated; F17.210 Nicotine dependence, cigarettes, uncomplicated; B19.20 Unspecified viral hepatitis C without hepatic coma; Z21 Asymptomatic human immunodeficiency virus [HIV] infection status; N39.0 Urinary tract infection, site not specified; D50.9 Iron deficiency anemia, unspecified; R59.1 Generalized enlarged lymph nodes; R19.7 Diarrhea, unspecified
CPT/HCPCS: 36415; 71045-TC-FY; 76700-TC; 80053; 80074; 81003; 82803; 83605; 84466; 84484; 84703; 85025; 85610; 85730; 86359; 86360; 86705; 87040; 87086; 87186; 87389; 87522; 93005; 93010; 93306-TC; 99284-25; J0131; J1644; J7030

== ENCOUNTER 2025-03-20 15:25 | Inpatient (IN) | payer OTHER ==
[2025-03-20 16:27] VITALS: BMI 18.8
[2025-03-20] MEDS ORDERED: IBUPROFEN 600 MG TABLET (FP) PO PRN (17:15)
[2025-03-20] MEDS ORDERED: guaiFENesin 600 MG TABLET.ER (FP) PO PRN (17:15)
[2025-03-20] MEDS ORDERED: ACETAMINOPHEN 325 MG TABLET (FP) PO PRN (17:15)
[2025-03-20] MEDS ORDERED: NALOXONE (NARCAN) HCL 4 MG/0.1 ML SPRAY NS PRN (17:15)
[2025-03-20] MEDS ORDERED: DICYCLOMINE HCL 10 MG CAPSULE PO PRN (17:15)
[2025-03-20] MEDS ORDERED: BENZONATATE 200 MG CAPSULE PO PRN (17:15)
[2025-03-20] MEDS ORDERED: MAG HYDROX/AL HYDROX/SIMETH 30 ML UNIT-DOSE CUP PO PRN (17:15)
[2025-03-20] MEDS ORDERED: MAGNESIUM HYDROX 2400MG/30ML ORAL SUSPENSION 30 ML CUP PO PRN (17:15)
[2025-03-20] MEDS ORDERED: POLYETHYLENE GLYCOL (HEALTHYLAX) 3350 17 GM PACKET PO PRN (17:15)
[2025-03-20] MEDS ORDERED: IBUPROFEN 400 MG TABLET (FP) PO PRN (17:15)
[2025-03-20] MEDS ORDERED: BENZOCAINE/MENTHOL (CHLORASEPTIC ) LOZENGE MM PRN (17:15)
[2025-03-20] MEDS: MELATONIN 5 MG TABLETS PO SCH (22:12)
[2025-03-20] MEDS: THIAMINE 100 MG TABLET PO SCH (22:12)
[2025-03-21] MEDS: PRENATAL VITAMINS W/ FOLIC ACID TABLET (FP) PO SCH (09:54)
[2025-03-21 10:07] LABS: MEAN CELL VOLUME 83.7 fl (79.4-94.8)
[2025-03-21 10:17] LABS: HEMATOCRIT 36.5 % (34.1-44.9); MCHC 32.9 g/dl (32.2-35.5); PLATELET COUNT 120 x10^3/uL (182-369); RDW 13.8 % (12.3-16.6)
[2025-03-21 10:47] LABS: CHLORIDE 110 mmol/L (98-107); SODIUM 142 mmol/L (136-145)
[2025-03-21 10:49] LABS: CALCIUM 8.7 mg/dL (8.5-10.1)
[2025-03-21 10:50] LABS: ANION GAP 6 mmol/L (4-13); BLOOD UREA NITROGEN 17.1 mg/dL (7-18); CO2 26 mmol/L (21-32); GLUCOSE,RANDOM 116 mg/dL (74-106)
[2025-03-21 10:53] LABS: CREATININE 0.8 mg/dL (0.55-1.3); SGOT/AST 22 U/L (15-37); SGPT/ALT 24 U/L (13-61)
[2025-03-21 10:55] LABS: BILIRUBIN,TOTAL 0.2 mg/dL (0.2-1); TOT PROT 6.6 g/dl (6.4-8.2)
[2025-03-21 10:56] LABS: ALK PHOS 86 U/L (45-117)
[2025-03-21] MEDS: METHOCARBAMOL 500 MG TABLET PO PRN (13:17)
[2025-03-21] MEDS: diazePAM 5 MG TABLET PO PRN (13:18)
[2025-03-21] MEDS: methaDONE HCL 10 MG TABLET PO ONE (17:46)
[2025-03-21] MEDS: hydrOXYzine PAMOATE 25 MG CAPSULE (FP) PO PRN (17:46)
[2025-03-21] MEDS: diazePAM 5 MG TABLET PO SCH (17:47)
[2025-03-21] MEDS: ONDANSETRON *ODT* 4 MG TABLET SL PRN (21:07)
[2025-03-22] MEDS: diazePAM 5 MG TABLET PO SCH (06:05)
[2025-03-22] MEDS: methaDONE HCL 10 MG TABLET PO ONE (10:16)
[2025-03-22] MEDS: BISMUTH SUBSALICYLATE 524 MG/30 ML PO PRN (20:09)
[2025-03-23] MEDS: diazePAM 5 MG TABLET PO SCH (05:31)
[2025-03-23] MEDS: methaDONE HCL 40 MG DISPERSABLE TABLET PO ONE (09:10)
[2025-03-23] MEDS: LOPERAMIDE HCL 2 MG CAPSULE PO PRN (12:12)
[2025-03-23 16:48] VITALS: RESP 16
[2025-03-24] MEDS: diazePAM 5 MG TABLET PO ONE (05:52)
[2025-03-24] MEDS: methaDONE HCL 40 MG DISPERSABLE TABLET PO SCH (05:52)
[2025-03-24 09:17] VITALS: BP 116/84; PULSE 74; TEMP 97.7
== END 2025-03-24 09:50 | disposition home or self-care (01) | DRG 773 ==
LOC: YASAS 15:25 → Y6N 18:57
PROVIDERS: ADMIT Allergy & Immunology; ATTEND Allergy & Immunology
PROC: HZ2ZZZZ Detoxification Services for Substance Abuse Treatment (ICD-10-PCS; principal; 2025-03-20)
DX: F10.230 Alcohol dependence with withdrawal, uncomplicated (principal); F13.230 Sedative, hypnotic or anxiolytic dependence with withdrawal, uncomplicated; F11.20 Opioid dependence, uncomplicated; F14.20 Cocaine dependence, uncomplicated; F17.210 Nicotine dependence, cigarettes, uncomplicated; Z21 Asymptomatic human immunodeficiency virus [HIV] infection status; K21.9 Gastro-esophageal reflux disease without esophagitis; Z86.19 Personal history of other infectious and parasitic diseases; Z79.899 Other long term (current) drug therapy
CPT/HCPCS: 36415; 80053; 80305; 80307; 81025; 85027; 86593; 86780; 93005; 93010; Q0162